=== PATIENT | male | born 1950 | race Caucasian/White ===

== ENCOUNTER → 2017-12-28 09:50 | Outpatient (CLI) | payer BC, SELFPAY ==
[2017-12-28 10:23] LABS: Kit/Specimen SENT
== END ==
PROVIDERS: PCP Emergency Medicine; Visit Provider Internal Medicine Nephrology
DX: Z01.818 Encounter for other preprocedural examination (principal); N18.4 Chronic kidney disease, stage 4 (severe)

== ENCOUNTER → 2018-01-10 10:00 | Outpatient (CLI) | payer BC, SELFPAY ==
--- NOTE | 2018-01-10 10:05 | DI.REPORT_ITS ---
SYMPTOM/DIAGNOSIS: F/U FX RIGHT FOOT: Comparison is made with 18 November 2017. The bones appear osteopenic from disuse. There has been no change in the alignment of the fractures at the bases of the 2nd and 4th metatarsals.
== END ==
PROVIDERS: PCP Emergency Medicine; Visit Provider Orthopaedic Surgery
DX: S92.324D Nondisplaced fracture of second metatarsal bone, right foot, subsequent encounter for fracture with routine healing (principal)
CPT/HCPCS: 73630

== ENCOUNTER → 2018-01-11 10:41 | Outpatient (CLI) | payer BC, SELFPAY ==
[2018-01-11 12:12] LABS: Anion Gap 12.2 mmol/L (3-11); BUN 43 mg/dL (7-18); CO2 25.8 mmol/L (21.0-32.0); Calcium 9.1 mg/dL (8.5-10.1); Chloride 106 mmol/L (98-107); Estimated GFR 16.78 (mL/min/1.73m2); Glucose 161 mg/dL (70-100); Potassium 3.2 mmol/L (3.5-5.1); Sodium 144 mmol/L (136-145)
[2018-01-11 12:29] LABS: CREATININE 3.63 mg/dL (0.70-1.30)
== END ==
PROVIDERS: PCP Emergency Medicine; Visit Provider Internal Medicine Nephrology
DX: N18.4 Chronic kidney disease, stage 4 (severe) (principal)
CPT/HCPCS: 36415; 80048

== ENCOUNTER 2018-01-31 08:36 | Outpatient (CLI) | payer BC, SELFPAY ==
[2018-01-31 13:32] LABS: Kit/Specimen SENT
== END 2018-01-31 08:56 ==
PROVIDERS: PCP Emergency Medicine; Visit Provider Internal Medicine Nephrology
DX: Z01.818 Encounter for other preprocedural examination (principal); N18.4 Chronic kidney disease, stage 4 (severe); I10 Essential (primary) hypertension
CPT/HCPCS: 36415

== ENCOUNTER 2018-02-27 09:32 | Outpatient (CLI) | payer BC, SELFPAY ==
[2018-02-27 09:53] LABS: Kit/Specimen SENT
== END 2018-02-27 09:52 ==
PROVIDERS: PCP Emergency Medicine; Visit Provider Internal Medicine Nephrology
DX: N18.4 Chronic kidney disease, stage 4 (severe) (principal); Z01.818 Encounter for other preprocedural examination

== ENCOUNTER 2018-03-30 09:49 | Outpatient (CLI) | payer BC, SELFPAY ==
[2018-03-30 10:10] LABS: Kit/Specimen SENT
[2018-03-30 11:09] LABS: Anion Gap 12.3 mmol/L (3-11); BUN 61 mg/dL (7-18); CO2 26.7 mmol/L (21.0-32.0); Chloride 102 mmol/L (98-107); Estimated GFR 16.47 (mL/min/1.73m2); Glucose 109 mg/dL (70-100); Potassium 3.5 mmol/L (3.5-5.1); Sodium 141 mmol/L (136-145)
[2018-03-30 11:22] LABS: CREATININE 3.69 mg/dL (0.70-1.30)
== END 2018-03-30 10:09 ==
PROVIDERS: PCP Emergency Medicine; Visit Provider Internal Medicine Nephrology
DX: N18.4 Chronic kidney disease, stage 4 (severe) (principal)
CPT/HCPCS: 36415; 80048

== ENCOUNTER 2018-05-03 10:01 | Outpatient (CLI) | payer BC, SELFPAY ==
[2018-05-03 10:34] LABS: Kit/Specimen SENT
== END 2018-05-03 10:21 ==
PROVIDERS: PCP Emergency Medicine; Visit Provider Internal Medicine Nephrology
DX: N18.4 Chronic kidney disease, stage 4 (severe) (principal); Z01.818 Encounter for other preprocedural examination
CPT/HCPCS: 36415

== ENCOUNTER 2018-05-25 09:24 | Emergency (ER) | payer BC, SELFPAY ==
[2018-05-25 09:32] VITALS: BP 153/68; PULSE 95; RESP 16; TEMP 37.2; O2SAT 98
--- NOTE | 2018-05-25 09:48 | DI.RAD_ITS ---
SYMPTOM/DIAGNOSIS: COUGH, FEVER, MALAISE PA AND LATERAL CHEST: A region of infiltration involving the axillary segment of the right upper lobe is demonstrated. The remainder of the lung is clear. There is no pleural effusion. The cardiovascular structures are intact. SUMMARY: Findings consistent with an acute pneumonitis.
--- NOTE | 2018-05-25 09:50 | W.ED.GENAD ---
Discharge Plan Disposition Patient Disposition: HOME Condition: Improving Discharge Details Chief Complaint: GenMedical Clinical Impression: Influenza A, Pneumonia Primary Care Provider: Adrián Rausch ED Provider: Praneeth Ruiz Home Meds and New Rx's Prescriptions: New azithromycin [Zithromax] 250 mg tablet 250 mg PO DAILY 5 Days Qty: 5 RF: 0 oseltamivir [Tamiflu] 75 mg capsule 75 mg PO BID 5 Days Qty: 9 RF: 0 Continued cyclobenzaprine 5 mg tablet 5 - 10 mg PO TID PRN (Reason: muscle spasm) Qty: 42 RF: 0 Lactobacillus acidophilus 1 EACH capsule 1 ea PO DAILY RF: 0 amlodipine 5 MG tablet 5 mg PO DAILY Qty: 30 RF: 2 losartan 50 MG tablet 75 mg PO DAILY Qty: 135 RF: 3 simvastatin 20 MG tablet 30 mg PO DAILY 90 Days Qty: 135 RF: 3 hydrochlorothiazide 12.5 MG tablet 12.5 mg PO DAILY RF: 0 calcitriol 0.25 mcg capsule 0.25 mcg PO 3xweek Qty: 60 RF: 3 No Action allopurinol 100 mg tablet 200 mg PO BID Qty: 360 RF: 4 Discharge Instructions Instructions: Pneumonia (ED), Influenza (ED) Additional Instructions: Small, frequent sips of fluids to maintain hydration. As we discussed you may liberalize potassium in your diet. Please take antibiotics and Tamiflu as prescribed. Please follow-up with primary care for recheck in the next 5-7 days time. Return to the emergency department for any acute concerns Medical Decision Making 67-year-old male presents from referral at outpatient clinic where he was evaluated for 4 days of fever, malaise. His review of systems notable for persistent cough, the notation of rust colored ejaculate and a history of prostatitis. 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 Arrives with a temperature of 37, pulse 95, blood pressure 153/68. Differential diagnosis includes prostatitis, urinary tract infection, influenza or pneumonia. IV placed, labs including blood culture and urinalysis obtained. Patient referred for chest x-ray. He is given a fluid bolus in the emergency dept. Influenza A positive; chest x-ray with mid lung field infiltrate. Remainder of diagnostics notable for stable creatinine, potassium 2.9 which was supplemented in the emergency department. With patient's underlying chronic disease, do feel that he should be treated for both bacterial as well as viral pneumonitis. Will be treated with Tamiflu and azithromycin given his renal dysfunction and penicillin allergies Lab Data Lab results reviewed: Yes I reviewed the patient's lab results. Laboratory Results - last 24 hr 05/25/18 05/25/18 05/25/18 10:03 10:03 10:03 WBC 17.96 H RBC 3.97 L Hgb 12.8 L Hct 37.9 L MCV 95.5 H MCH 32.2 MCHC 33.8 RDW 13.6 Plt Count 150 MPV 9.8 Immature Gran % 0.3 Neutrophils % 82.1 Lymphocytes % 7.2 Monocytes % 10.2 Eosinophils % 0.0 Basophils % 0.2 Absolute Neutrophils 14.75 H Absolute Lymphocytes 1.29 Absolute Monocytes 1.83 H Absolute Eosinophils 0.00 Absolute Basophils 0.04 Differential Comment Manual differential RBC Morphology Normal Sodium 137 Potassium 2.9 L* Chloride 96 L Carbon Dioxide 27.8 Anion Gap 13.2 H BUN 49 H Creatinine 3.59 H* Estimated GFR/1.73 m2 17.00 Glucose 153 H Lactate 1.3 Calcium 9.9 Total Bilirubin 0.6 AST 30 ALT 35 Alkaline Phosphatase 66 Total Protein 7.6 Albumin 3.9 HPI General Mode of arrival: ambulatory. Date/Time Provider Initiated Documentation: 05/25/18 09:32. Limitations to Documentation: no limitations. History of Present Illness 67 year old M presents to the emergency department with the chief complaint of Fever, described as moderate, Quality is described as aching, and is localized to the chest. Patient reports no radiation. Patient started experiencing this day(s) and it has been constant. No relieving factors improve symptom(s), No exacerbating factors reported . Patient notes cough, fever/chills and other (Seen). HPI Narrative: Fever, cough, malaise, rust colored ejaculate. This is a 67-year-old male with a history of chronic kidney disease secondary to Goodpasture's syndrome. He presented to outpatient clinic today complaining of 4 days of malaise, fevers, somewhat worsening chronic cough as well as rust colored ejaculate and a history of prostatitis. He denies dysuria. No recent travel. His was sick with an upper respiratory Related Data Home Medications Medication Instructions Recorded Confirmed Lactobacillus acidophilus 1 ea PO DAILY 03/09/16 05/25/18 amlodipine 5 mg PO DAILY #30 tab-cap 02/28/17 05/25/18 losartan 75 mg PO DAILY #135 tab-cap 04/08/17 05/25/18 simvastatin 30 mg PO DAILY 90 Days #135 tab-cap 06/13/17 05/25/18 hydrochlorothiazide 12.5 mg PO DAILY 01/24/18 05/25/18 calcitriol 0.25 mcg capsule 0.25 mcg PO 3xweek #60 cap 02/10/18 05/25/18 cyclobenzaprine 5 mg tablet 5 - 10 mg PO TID PRN #42 tab 04/07/18 05/25/18 allopurinol 100 mg tablet 200 mg PO BID #360 tab-cap 05/19/18 05/25/18 azithromycin [Zithromax] 250 mg PO DAILY 5 Days #5 tab 05/25/18 oseltamivir [Tamiflu] 75 mg PO BID 5 Days #9 cap 05/25/18 Previous Rx's Medication Instructions Recorded amlodipine 5 mg PO DAILY #30 tab-cap 02/28/17 losartan 75 mg PO DAILY #135 tab-cap 04/08/17 simvastatin 30 mg PO DAILY 90 Days #135 tab-cap 06/13/17 calcitriol 0.25 mcg capsule 0.25 mcg PO 3xweek #60 cap 02/10/18 cyclobenzaprine 5 mg tablet 5 - 10 mg PO TID PRN #42 tab 04/07/18 allopurinol 100 mg tablet 200 mg PO BID #360 tab-cap 05/19/18 azithromycin [Zithromax] 250 mg PO DAILY 5 Days #5 tab 05/25/18 oseltamivir [Tamiflu] 75 mg PO BID 5 Days #9 cap 05/25/18 Allergies Allergy/AdvReac Type Severity Reaction Status Date / Time Penicillins Allergy Severe CARDIAC Unverified 05/25/18 10:23 ARREST lisinopril AdvReac Intermediate cough Unverified 05/25/18 10:23 General Stated Complaint: GenMedical JENNIFER: 3 Review of Systems Review of Systems 8 systems reviewed and otherwise negative [facility] Medical History Borderline hyperglycemia Colon polyp, hyperplastic Hyperlipidemia Hypertension Surgical History KNEE SURGERY (~10/1971) Family History Mother Stroke Father No problems noted. Sister No problems noted. Brother Essential hypertension Heart disease Hyperlipidemia Grandfather Stroke Grandfather Personal history of malignant neoplasm Social History Smoking/Tobacco Use Status: Former Tobacco Use Exam Narrative Exam Narrative: GEN: awake, alert, oriented 3. Pleasant, well groomed, interactive. HEAD: Normocephalic, atraumatic ENT: Mucous membranes dry, oropharynx unremarkable, External ear exam unremarkable EYES: PERRL, EOMI NECK: Full ROM, no WARREN, no menigismus CHEST/RESP: Nontender, clear to auscultation bilateral, no wheeze/rhonchi/rales CARDIOVASCULAR: RRR, no murmur, rub domi. 2+ Rad pulse bilateral ABDOMEN: Soft, nontender, no mass. +Bowel sounds. Normal rectal tone, slightly boggy prostate EXT: Full ROM, no edema, no rash Neuro: Grossly normal neurologic exam, conversant, interactive. Psych: Speech fluent, thoughts congruent, affect normal Course Vital Signs Temperature 37.2 C 05/25/18 09:32 Pulse 95 H 05/25/18 09:32 Respiratory Rate 16 05/25/18 09:32 Blood Pressure 153/68 H 05/25/18 09:32 Pulse Oximetry 98 05/25/18 09:32 Temperature 37.2 C 05/25/18 09:32 Temperature Source Temporal Artery Scan 05/25/18 09:32 Pulse 95 H 05/25/18 09:32 Respiratory Rate 16 05/25/18 09:32 Respiratory Effort Non-Labored 05/25/18 09:35 Blood Pressure 153/68 H 05/25/18 09:32 Blood Pressure Position Sitting 05/25/18 09:32 Pulse Oximetry 98 05/25/18 09:32 Oxygen Delivery Method Room Air 05/25/18 09:32 Oxygen Flow Rate 0 05/25/18 09:32 Pain Level 0 05/25/18 09:32 Lab/Test Results Lab/Test Results: 05/25/18 09:37 Nasopharynx Influenza Types A,B Antigen - Pending
[2018-05-25] MEDS: Normal Saline 1,000 ML 1000 ML IV (10:13)
[2018-05-25 10:19] VITALS: RESP 16
[2018-05-25 10:20] LABS: Abs Immature Grans 0.05 k/cumm (0.0-0.09); Absolute Monocyte Count 1.83 k/cumm (0.11-0.7); Absolute Neutrophil Count 14.75 k/cumm (1.2-6.7); Basophils % 0.2; HCT 37.9 % (40.0-50.0); HGB 12.8 g/dL (13.5-17.5); Immature Grans % 0.3; Lymphocytes % 7.2; Mean Corp. HGB Concentration 33.8 g/dL (32.0-36.0); Mean Corpuscular Hemoglobin 32.2 pg (27.0-33.0); Mean Corpuscular Volume 95.5 fL (80-95); Mean Platelet Volume 9.8 fL (8.0-11.0); Monocytes % 10.2; Neutrophils % 82.1; Platelet Count 150 x1000/uL (130-400); RBC 3.97 m/cumm (4.50-6.00); RBC Distribution Width 13.6 % (11.8-14.1); White Blood Cell Count 17.96 k/cumm (4.4-10.8)
[2018-05-25 10:22] LABS: Absolute Basophil Count 0.04 k/cumm (0.0-0.2); Absolute Lymphocyte Count 1.29 k/cumm (1.2-3.4)
[2018-05-25 10:27] LABS: Lactate 1.3 mmol/L (0.6-1.4)
[2018-05-25 10:41] LABS: ALT 35 U/L (12-78); AST 30 U/L (15-37); Albumin 3.9 g/dL (3.4-5.0); Alkaline Phosphatase 66 U/L (46-116); Anion Gap 13.2 mmol/L (3-11); BUN 49 mg/dL (7-18); Bilirubin, Total 0.6 mg/dL (0.2-1.0); CO2 27.8 mmol/L (21.0-32.0); Calcium 9.9 mg/dL (8.5-10.1); Chloride 96 mmol/L (98-107); Glucose 153 mg/dL (70-100); Sodium 137 mmol/L (136-145); Total Protein 7.6 g/dL (6.4-8.2)
[2018-05-25 10:45] LABS: Diff Comment Manual Differential; RBC Morphology Normal
[2018-05-25 10:48] LABS: CREATININE 3.59 mg/dL (0.70-1.30)
[2018-05-25 10:49] LABS: Potassium 2.9 mmol/L (3.5-5.1)
[2018-05-25] MEDS: Potassium Chloride 20 MEQ TABCR PO (11:02)
[2018-05-25] MEDS: Oseltamivir 75 MG CAP PO (11:02)
[2018-05-25] MEDS: POTASSIUM CHLORIDE 10 MEQ/100 ML BAG 100 MEQ IVPB (11:03)
[2018-05-25 11:53] LABS: Bilirubin Negative (Negative); Blood Moderate (Negative); Clarity Clear; Glucose Negative (Negative); Ketones Negative (Negative); Leukocyte Esterase Negative (Negative); Nitrite Negative (Negative); Urobilinogen 0.2 EU/dL (Up TO 0.2); pH 6.5 (5-8)
[2018-05-25 12:11] LABS: Bacteria Rare HPF (Negative); Crystals Few Amorphous HPF (Negative); Epithelial Cells Rare HPF (Negative); Mucus Negative (Negative); Other Cells Few Renal (Negative); WBC 0-2 HPF (0-5)
[2018-05-25 12:12] LABS: C & S Indicated? No
[2018-05-25] MEDS: AZITHROMYCIN 500 MG in Normal Saline 250 ML 250 MG IVPB (12:17)
[2018-05-25 14:00] VITALS: BP 118/60; PULSE 88; RESP 14; TEMP 37.2; O2SAT 96
== END 2018-05-25 14:01 | disposition home or self-care (01) ==
PROVIDERS: Emergency Provider Emergency Medicine; PCP Emergency Medicine
DX: J11.00 Influenza due to unidentified influenza virus with unspecified type of pneumonia (principal); E87.6 Hypokalemia; M31.0 Hypersensitivity angiitis; Z87.891 Personal history of nicotine dependence; I12.0 Hypertensive chronic kidney disease with stage 5 chronic kidney disease or end stage renal disease; N18.6 End stage renal disease; Z99.2 Dependence on renal dialysis
CPT/HCPCS: 36415; 80053; 87040; 87449; 96361; 96365; 96367; 99285; 71046; 81003; 81015; 83605; 85025; J0456; J3480

== ENCOUNTER 2018-05-31 10:21 | Outpatient (CLI) | payer BC, SELFPAY ==
[2018-05-31 10:48] LABS: Kit/Specimen SENT
[2018-05-31 14:44] LABS: Anion Gap 11.3 mmol/L (3-11); BUN 46 mg/dL (7-18); CO2 26.7 mmol/L (21.0-32.0); CREATININE 3.27 mg/dL (0.70-1.30); Calcium 9.2 mg/dL (8.5-10.1); Chloride 104 mmol/L (98-107); Estimated GFR 18.93 (mL/min/1.73m2); Glucose 153 mg/dL (70-100); Sodium 142 mmol/L (136-145)
== END 2018-05-31 10:41 ==
PROVIDERS: PCP Emergency Medicine; Visit Provider Internal Medicine Nephrology
DX: N18.4 Chronic kidney disease, stage 4 (severe) (principal)
CPT/HCPCS: 36415; 80048

== ENCOUNTER 2018-06-07 10:08 | Outpatient (CLI) | payer BC, SELFPAY ==
[2018-06-07 11:35] LABS: Bilirubin Negative (Negative); Blood Small (Negative); Clarity Clear; Glucose Negative (Negative); Ketones Negative (Negative); Leukocyte Esterase Negative (Negative); Nitrite Negative (Negative); Urobilinogen 0.2 EU/dL (Up TO 0.2)
[2018-06-07 11:47] LABS: Bacteria Rare HPF (Negative); Epithelial Cells Rare HPF (Negative)
[2018-06-07 11:48] LABS: C & S Indicated? No; Casts 3-5 Hyaline LPF (Negative); Crystals Negative HPF (Negative); Mucus Trace (Negative)
[2018-06-08 12:14] LABS: PSA, Screening 1.2 ng/ml (0-4.5)
== END 2018-06-07 10:28 ==
PROVIDERS: PCP Emergency Medicine; Visit Provider Family Medicine
DX: R36.1 Hematospermia (principal); R39.11 Hesitancy of micturition; N13.8 Other obstructive and reflux uropathy; N40.1 Benign prostatic hyperplasia with lower urinary tract symptoms
CPT/HCPCS: 36415; 84153; 81003; 81015

== ENCOUNTER 2018-06-13 17:11 | Outpatient (REF) | payer BC, SELFPAY ==
--- NOTE | 2018-06-13 14:45 | PAPNONF_PTH ---
PATIENT: Gamaliel Gudino LOC: [facility] U#:[id number] AGE/SX: 67/M ROOM: RE06/13/[address]: Lucila Lopez DNP : 1950 BED: DIS: 06/13/2018 SPEC #: [id number] RECD: 06/13/18 17:46 STATUS: SANTINO REShivam #: [id number] TAY: 06/13/18 14:[address]: Lucila Lopez DEPT: [facility] Cytology RECD BY: Candy Esposito ENTERED: 06/13/18 17:48 SP TYPE: [facility] DR: Edward Jackson MD Tissues: 1 - BODY FLUID CYTO(SPUTUM/URINE)[facility] Procedures: BODY FLUID CYTO(URINE/SPUTUM) Comments: [id number] (TOTAL VOLUME = 80 ml's) (40 ml's URINE & 40 ml's CYTOLYT ADDED IN 2 CONTAINERS)
== END 2018-06-13 17:31 ==
LOC: LBN 17:11
PROVIDERS: PCP Family Medicine; Visit Provider Nurse Practitioner Gerontology
DX: R31.9 Hematuria, unspecified (principal); R82.8 Abnormal findings on cytological and histological examination of urine
CPT/HCPCS: 88104

== ENCOUNTER 2018-06-30 09:35 | Outpatient (CLI) | payer BC, SELFPAY ==
[2018-06-30 10:00] LABS: Kit/Specimen SENT
== END 2018-06-30 09:55 ==
PROVIDERS: PCP Family Medicine; Visit Provider Internal Medicine Nephrology
DX: I77.6 Arteritis, unspecified (principal); R76.8 Other specified abnormal immunological findings in serum
CPT/HCPCS: 36415

== ENCOUNTER 2018-07-14 02:03 | Outpatient (RCR) | payer BC, SELFPAY ==
[2018-07-14] VITALS (7 sets, daily range): BP systolic 143–173; BP diastolic 70–91; PULSE 59–70; RESP 16–18; TEMP 35.9–36.4; O2SAT 94–99
[2018-07-14] MEDS: Acetaminophen 325 MG TAB 650 MG PO (10:24)
[2018-07-14] MEDS: diphenhydrAMINE 50 MG/ML VIAL 25 MG IV (10:24)
[2018-07-14] MEDS: methylPREDNISolone SUCC 125 MG VIAL IV (10:25)
[2018-07-14] MEDS: Normal Saline Flush 10 ML SYR IVP (10:56)
== END 2018-07-27 23:59 | disposition home or self-care (01) ==
LOC: INF 02:03
PROVIDERS: PCP Family Medicine; Visit Provider Internal Medicine
DX: I77.6 Arteritis, unspecified (principal); R76.8 Other specified abnormal immunological findings in serum
CPT/HCPCS: 96365; 96366; J1200; J2930; J9310

== ENCOUNTER 2018-07-28 00:43 | Outpatient (RCR) | payer BC, SELFPAY ==
[2018-07-28] MEDS: Acetaminophen 325 MG TAB 650 MG PO (09:13)
[2018-07-28] MEDS: methylPREDNISolone SUCC 125 MG VIAL IV (09:13)
[2018-07-28] MEDS: diphenhydrAMINE 50 MG/ML VIAL 25 MG IV (09:13)
[2018-07-28 09:14] VITALS: BP 152/71; PULSE 71; RESP 18; TEMP 36; O2SAT 96
[2018-07-28 09:50] VITALS: BP 149/79; PULSE 68; RESP 18; TEMP 36.5; O2SAT 95
[2018-07-28 10:05] VITALS: BP 136/68; PULSE 75; RESP 18; TEMP 36.3; O2SAT 94
[2018-07-28 10:40] VITALS: BP 139/70; PULSE 67; RESP 17; TEMP 36; O2SAT 95
[2018-07-28] MEDS: Normal Saline Flush 10 ML SYR IVP (13:13)
== END 2018-08-27 23:59 | disposition home or self-care (01) ==
LOC: INF 00:43
PROVIDERS: PCP Family Medicine; Visit Provider Internal Medicine
DX: I77.6 Arteritis, unspecified (principal); R76.8 Other specified abnormal immunological findings in serum
CPT/HCPCS: 96365; 96366; J1200; J2930; J9310

== ENCOUNTER 2018-07-31 10:32 | Outpatient (CLI) | payer BC, SELFPAY ==
[2018-07-31 10:47] LABS: Kit/Specimen SENT
== END 2018-07-31 10:52 ==
PROVIDERS: PCP Family Medicine; Visit Provider Internal Medicine Nephrology
DX: R69 Illness, unspecified (principal)
CPT/HCPCS: 36415

== ENCOUNTER 2018-08-24 14:43 | Outpatient (CLI) | payer BC, SELFPAY | END 2018-08-24 15:03 | PROVIDERS: PCP Family Medicine; Visit Provider Internal Medicine Nephrology | DX: R69 Illness, unspecified (principal) | CPT/HCPCS: 36415 ==

== ENCOUNTER 2018-08-30 10:09 | Outpatient (CLI) | payer BC, SELFPAY ==
[2018-08-30 10:44] LABS: Kit/Specimen SENT
== END 2018-08-30 10:29 ==
PROVIDERS: PCP Family Medicine; Visit Provider Internal Medicine Nephrology
DX: N18.6 End stage renal disease (principal); Z01.818 Encounter for other preprocedural examination
CPT/HCPCS: 36415

== ENCOUNTER 2018-09-28 09:39 | Outpatient (CLI) | payer BC, SELFPAY ==
[2018-09-28 10:02] LABS: Kit/Specimen SENT
== END 2018-09-28 09:59 ==
PROVIDERS: PCP Family Medicine; Visit Provider Internal Medicine Nephrology
DX: N18.6 End stage renal disease (principal); Z01.818 Encounter for other preprocedural examination
CPT/HCPCS: 36415

== ENCOUNTER 2018-10-30 09:47 | Outpatient (CLI) | payer BC, SELFPAY ==
[2018-10-30 10:04] LABS: Kit/Specimen SENT
== END 2018-10-30 10:07 ==
PROVIDERS: PCP Family Medicine; Visit Provider Internal Medicine Nephrology
DX: N18.6 End stage renal disease (principal); Z01.818 Encounter for other preprocedural examination
CPT/HCPCS: 36415

== ENCOUNTER 2018-11-20 07:30 | Outpatient (CLI) | payer BC, SELFPAY | END 2018-11-20 07:50 | PROVIDERS: PCP Family Medicine; Visit Provider Internal Medicine Nephrology | DX: R69 Illness, unspecified (principal) | CPT/HCPCS: 36415 ==

== ENCOUNTER 2018-12-28 08:44 | Outpatient (CLI) | payer BC, SELFPAY ==
[2018-12-28 09:16] LABS: Kit/Specimen SENT
== END 2018-12-28 09:04 ==
PROVIDERS: PCP Family Medicine; Visit Provider Internal Medicine Nephrology
DX: N18.6 End stage renal disease (principal); Z01.818 Encounter for other preprocedural examination
CPT/HCPCS: 36415

== ENCOUNTER 2019-01-30 11:34 | Outpatient (CLI) | payer BC, SELFPAY ==
[2019-01-30 12:00] LABS: Kit/Specimen SENT
[2019-01-30 12:41] LABS: Anion Gap 12.5 mmol/L (3-11); BUN 63 mg/dL (7-18); CO2 23.5 mmol/L (21.0-32.0); Calcium 9.7 mg/dL (8.5-10.1); Chloride 106 mmol/L (98-107); Estimated GFR 16.27 (mL/min/1.73m2); Glucose 100 mg/dL (70-100); Potassium 3.5 mmol/L (3.5-5.1); Sodium 142 mmol/L (136-145)
[2019-01-30 12:46] LABS: CREATININE 3.72 mg/dL (0.70-1.30)
== END 2019-01-30 11:54 ==
PROVIDERS: PCP Family Medicine; Visit Provider Internal Medicine Nephrology
DX: N18.4 Chronic kidney disease, stage 4 (severe) (principal); Z01.818 Encounter for other preprocedural examination
CPT/HCPCS: 36415; 80048

== ENCOUNTER 2019-03-01 09:30 | Outpatient (CLI) | payer BC, SELFPAY ==
[2019-03-01 09:56] LABS: Kit/Specimen SENT
== END 2019-03-01 09:50 ==
PROVIDERS: PCP Family Medicine; Visit Provider Internal Medicine Nephrology
DX: N18.6 End stage renal disease (principal); Z01.818 Encounter for other preprocedural examination

== ENCOUNTER 2019-04-02 09:44 | Outpatient (CLI) | payer BC, SELFPAY ==
[2019-04-02 10:10] LABS: Kit/Specimen SENT
== END 2019-04-02 10:04 ==
PROVIDERS: PCP Family Medicine; Visit Provider Internal Medicine Nephrology
DX: N18.6 End stage renal disease (principal); Z01.818 Encounter for other preprocedural examination
CPT/HCPCS: 36415

== ENCOUNTER 2019-05-03 11:02 | Outpatient (CLI) | payer BC, SELFPAY ==
[2019-05-03 13:40] LABS: Kit/Specimen SENT
== END 2019-05-03 11:22 ==
PROVIDERS: PCP Family Medicine; Visit Provider Internal Medicine Nephrology
DX: N18.4 Chronic kidney disease, stage 4 (severe) (principal); N18.6 End stage renal disease
CPT/HCPCS: 36415

== ENCOUNTER 2019-06-01 11:30 | Outpatient (CLI) | payer BC, SELFPAY ==
[2019-06-01 12:01] LABS: Kit/Specimen SENT
[2019-06-01 12:56] LABS: Anion Gap 13.6 mmol/L (3-11); BUN 54 mg/dL (7-18); CO2 25.4 mmol/L (21.0-32.0); Calcium 10.5 mg/dL (8.5-10.1); Chloride 103 mmol/L (98-107); Estimated GFR 15.92 (mL/min/1.73m2); Glucose 180 mg/dL (74-106); Potassium 3.2 mmol/L (3.5-5.1); Sodium 142 mmol/L (136-145)
[2019-06-01 13:04] LABS: CREATININE 3.79 mg/dL (0.70-1.30)
== END 2019-06-01 11:50 ==
PROVIDERS: PCP Family Medicine; Visit Provider Internal Medicine Nephrology
DX: N18.4 Chronic kidney disease, stage 4 (severe) (principal); Z01.818 Encounter for other preprocedural examination; Z76.82 Awaiting organ transplant status
CPT/HCPCS: 36415; 80048

== ENCOUNTER 2019-07-30 11:29 | Outpatient (CLI) | payer BC, MEDICARE, SELFPAY ==
[2019-07-30 11:50] LABS: Kit/Specimen SENT
[2019-07-30 12:45] LABS: BUN 47 mg/dL (7-18); Calcium 9.7 mg/dL (8.5-10.1); Chloride 106 mmol/L (98-107); Estimated GFR 15.83 (mL/min/1.73m2); Glucose 164 mg/dL (74-106); Potassium 3.4 mmol/L (3.5-5.1); Sodium 144 mmol/L (136-145)
== END 2019-07-30 11:49 ==
PROVIDERS: Internal Medicine Nephrology; PCP Family Medicine; Visit Provider Internal Medicine Nephrology
DX: N18.4 Chronic kidney disease, stage 4 (severe) (principal)
CPT/HCPCS: 36415; 80048

== ENCOUNTER 2019-12-25 02:01 | Outpatient (RCR) | payer BC, MEDICARE, SELFPAY ==
[2019-12-25] VITALS (9 sets, daily range): BP systolic 149–173; BP diastolic 63–77; PULSE 69–98; RESP 18–19; TEMP 36–36.6; O2SAT 93–99
[2019-12-25] MEDS: Acetaminophen 325 MG TAB 650 MG PO (08:19)
[2019-12-25] MEDS: diphenhydrAMINE 50 MG/ML VIAL 25 MG IV (08:19)
[2019-12-25] MEDS: methylPREDNISolone SUCC 125 MG VIAL IV (08:26)
[2019-12-25] MEDS: Normal Saline Flush 10 ML SYR IVP (08:34)
== END 2019-12-28 23:59 | disposition home or self-care (01) ==
LOC: INF 02:01
PROVIDERS: PCP Family Medicine; Visit Provider Internal Medicine
DX: I77.6 Arteritis, unspecified (principal); R76.8 Other specified abnormal immunological findings in serum
CPT/HCPCS: 96365; 96366; 96413; 96415; J1200; J2930; J9312

== ENCOUNTER 2020-01-01 01:28 | Outpatient (CLI) | payer BC, MEDICARE, SELFPAY ==
[2020-01-01 09:37] LABS: Kit/Specimen SENT
== END 2020-01-01 01:48 ==
PROVIDERS: PCP Family Medicine; Visit Provider Internal Medicine Nephrology
DX: Z94.0 Kidney transplant status (principal)
CPT/HCPCS: 36415

== ENCOUNTER 2020-01-08 01:43 | Outpatient (RCR) | payer BC, MEDICARE, SELFPAY ==
[2020-01-08] MEDS: Acetaminophen 325 MG TAB 650 MG PO (08:42)
[2020-01-08] MEDS: diphenhydrAMINE 50 MG/ML VIAL 25 MG IV (08:42)
[2020-01-08] MEDS: methylPREDNISolone SUCC 125 MG VIAL IV (08:42)
[2020-01-08 08:51] VITALS: BP 164/79; PULSE 75; RESP 18; TEMP 36.6; O2SAT 98
[2020-01-08 09:12] VITALS: BP 156/79; PULSE 70; RESP 18; TEMP 36.6; O2SAT 98
[2020-01-08 09:42] VITALS: BP 156/75; PULSE 66; RESP 18; TEMP 36.5; O2SAT 97
[2020-01-08 10:12] VITALS: BP 155/75; PULSE 68; RESP 18; TEMP 36.5; O2SAT 97
[2020-01-08] MEDS: Normal Saline Flush 10 ML SYR IVP (11:08)
== END 2020-01-28 23:59 | disposition home or self-care (01) ==
LOC: INF 01:43
PROVIDERS: PCP Family Medicine; Visit Provider Internal Medicine
DX: I77.6 Arteritis, unspecified (principal); R76.8 Other specified abnormal immunological findings in serum
CPT/HCPCS: 96365; 96366; 96374; 96413; 96415; J1200; J2930; J9312

== ENCOUNTER 2020-02-01 01:22 | Outpatient (CLI) | payer BC, MEDICARE, SELFPAY ==
[2020-02-01 10:08] LABS: Kit/Specimen SENT
== END 2020-02-01 01:42 ==
PROVIDERS: PCP Family Medicine; Visit Provider Internal Medicine Nephrology
DX: N18.4 Chronic kidney disease, stage 4 (severe) (principal); Z01.818 Encounter for other preprocedural examination; Z76.82 Awaiting organ transplant status
CPT/HCPCS: 36415

== ENCOUNTER 2020-02-29 08:53 | Day surgery (SDC) | payer BC, MEDICARE, SELFPAY ==
[2020-02-29 09:14] VITALS: BP 154/83; PULSE 75; RESP 17; TEMP 36.4; O2SAT 95
[2020-02-29] MEDS: Lactated Ringers 1,000 ML 80 ML IV (09:44)
--- NOTE | 2020-02-29 10:24 | W.PM.DSUDISC ---
Discharge Plan Disposition Patient Disposition: HOME Condition: Good Discharge Details Reason For Visit: Colonoscopy Attending Provider: Dilcia Doty Primary Care Provider: Edward Jackson Home Meds and New Rx's Prescriptions: Continued calcitriol 0.25 mcg capsule 0.25 mcg PO 5XW RF: 0 allopurinol 100 mg tablet 200 mg PO BID RF: 0 losartan 50 mg tablet 75 mg PO DAILY RF: 0 terazosin 1 mg capsule 3 mg PO QHS RF: 0 simvastatin 20 mg tablet 60 mg PO DAILY RF: 0 Lactobacillus acidophilus 1 EACH capsule 1 ea PO DAILY RF: 0 Discontinued polyethylene glycol 3350 17 gram/dose powder 238 g PO ONCE Qty: 238 RF: 0 bisacodyl [Dulcolax (bisacodyl)] 5 mg tablet,delayed release (DR/EC) 5 mg PO ONCE Qty: 4 RF: 0 Discharge Instructions Additional Instructions: Findings: Your colonoscopy showed diverticulosis. No polyps were found. Follow up: Plan for colonoscopy in 5 years. Please call if you develop: fevers >101.5 Nausea or Vomiting Abdominal pain that is not transient DAY SURGERY UNIT POST COLONOSCOPY INSTRUCTIONS 1. Because there will be medication in your system for the next 24 hours, you may feel a little sleepy. Your coordination will be affected. Therefore: a. Do not drive or operate dangerous equipment for 24 hours. b. Do not drink alcohol beverages for 24 hours (not even beer). c. Plan to go home and rest for the day. 2. Generally there are no restrictions on your activity after a day or so has gone by, but you may feel a bit fatigued for a few days. 3 After you arrive home you may have a light meal and return to a normal diet as you can tolerate it without feeling sick to your stomach. 4. After surgery, you may feel pain or discomfort. This should be only transient, but if it persists please contact your doctor. 5. If there are any questions regarding the findings of your procedure, please feel free to contact your doctor. 6. If you are unable to contact your doctor with a problem, contact the hospital at [phone]. 7. Continue all your regular medications unless directed otherwise. I understand the above instructions and have no questions. Signature of Patient or Responsible Adult Escort Date/Time Name of Responsible Adult Escort Signature of Nurse Date/Time Activity:: Activity as Tolerated Diet:: As Tolerated Discharge Orders Discharge Orders: Discharge Order (Routine); Ordered 02/29/20 Ordered By: Dilcia Doty DS: Diagnosis Discharge Diagnosis (1) Diverticulosis: Status: Acute
--- NOTE | 2020-02-29 10:25 | W.COLOREPORT ---
Date of service: 02/29/20 Time of Service: 11:13 Colonoscopy Report Date of procedure: 02/29/20 Pre-op diagnosis general: History of tubulovillous adenoma Post-op diagnosis procedure note: other (Diverticulosis) Procedure: Colonoscopy Surgeon: Dilcia Doty Anesthesia proc note operative: MAC Indications: This 69 year old man presents for surveillance colonoscopy. His prior in 2016 showed a tubulovillous adenoma in the ascending colon. Procedure Description: The patient was placed in the left [place] position. Propofol was titrated to sedation. Digital rectal examination revealed no abnormalities. The scope was advanced to the cecum without difficulty. The ileocecal valve and appendiceal orifice were clearly identified. The prep was good. The scope was slowly withdrawn over the course of greater than 6 minutes with no abnormalities seen in the ascending, transverse, descending, sigmoid colon with the exception of moderate diverticulosis. The rectum was normal including on retroflexed view. The patient tolerated the procedure well and was stable to recovery. Plan for routine screening colonoscopy in 5 years or sooner if symptoms indicate.
[2020-02-29 11:35] VITALS: BP 139/74; PULSE 51; RESP 18; TEMP 36.3; O2SAT 96
== END 2020-02-29 12:07 | disposition home or self-care (01) ==
PROVIDERS: PCP Family Medicine; Visit Provider Surgery
PROC: 0DJD8ZZ Inspection of Lower Intestinal Tract, Via Natural or Artificial Opening Endoscopic (ICD-10-PCS; CPT 45378; principal; 2020-02-29 10:30)
DX: Z12.11 Encounter for screening for malignant neoplasm of colon (principal); Z86.010 Personal history of colon polyps; K57.30 Diverticulosis of large intestine without perforation or abscess without bleeding; I10 Essential (primary) hypertension
CPT/HCPCS: 45378

== ENCOUNTER 2020-03-24 02:14 | Outpatient (CLI) | payer BC, MEDICARE, SELFPAY ==
[2020-03-24 10:14] LABS: Kit/Specimen SENT
== END 2020-03-24 02:34 ==
PROVIDERS: PCP Family Medicine; Visit Provider Internal Medicine Nephrology
DX: Z01.818 Encounter for other preprocedural examination (principal)

== ENCOUNTER 2020-09-15 15:14 | Outpatient (REF) | payer BC, MEDICARE, SELFPAY ==
[2020-09-15 16:19] LABS: Abs Immature Grans 1.03 10^3/uL (0.0-0.06); HCT 43.8 % (40.0-50.0); HGB 13.5 g/dL (13.5-17.5); MCH 26.6 pg (27.0-33.0); MCHC 30.8 % (32.0-36.0); MCV 86.2 fL (80-95); MPV 11.1 fL (8.0-11.0); Nucleated RBC 0 %; Platelet Count 142 10^3/uL (130-400); RBC 5.08 10^6/uL (4.36-5.78); RDW-SD 47.7 fL; WBC 9.54 10^3/uL (4.4-10.8)
[2020-09-15 16:25] LABS: ALT 37 U/L (16-63); AST 47 U/L (15-37); Albumin 3.6 g/dL (3.4-5.0); Alkaline Phosphatase 80 U/L (46-116); Anion Gap 9.9 mmol/L (3-11); BUN 29 mg/dL (7-18); Bilirubin, Total 0.3 mg/dL (0.2-1.0); CO2 24.1 mmol/L (21.0-32.0); CREATININE 1.5 mg/dL (0.70-1.30); Calcium 10.3 mg/dL (8.5-10.1); Chloride 105 mmol/L (98-107); Estimated GFR 46.13 (mL/min/1.73m2); Glucose 165 mg/dL (74-106); Magnesium 1.5 mg/dL (1.8-2.4); PHOSPHORUS 2.2 mg/dL (2.6-4.7); Potassium 4.3 mmol/L (3.5-5.1); Sodium 139 mmol/L (136-145); Total Protein 7.2 g/dL (6.4-8.2)
[2020-09-15 16:30] LABS: Bilirubin Negative (Negative); Blood Large (Negative); Clarity Sl Cloudy (Clear); Glucose Negative (Negative); Ketones Negative (Negative); Leukocyte Esterase Negative (Negative); Nitrite Negative (Negative); Specific Gravity >= 1.030 (1.005-1.025); Urobilinogen 0.2 EU/dL (Up TO 0.2); pH 5.5 (5-8)
[2020-09-15 16:42] LABS: WBC 0-2 HPF (0-5)
[2020-09-15 16:43] LABS: Bacteria Negative HPF (Negative); C & S Indicated? No; Casts 0-2 Hyaline LPF (Negative); Crystals Negative HPF (Negative); Epithelial Cells Rare HPF (Negative); Mucus Trace (Negative); RBC >50 HPF (0-2)
[2020-09-15 16:48] LABS: Absolute Lymphocyte Count 0.38 10^3/uL (1.2-3.4); Absolute Monocyte Count 0.86 10^3/uL (0.1-0.8); Absolute Neutrophil Count 8.11 10^3/uL (1.2-6.7); Bands % 10; Metamyelocytes % 1; Myelocytes % 1
[2020-09-15 16:49] LABS: Diff Comment Manual Differential; RBC Morphology Normal
== END 2020-09-15 15:15 | disposition home or self-care (01) ==
LOC: LBN 15:14
PROVIDERS: PCP Family Medicine; Visit Provider Internal Medicine Nephrology
DX: N18.4 Chronic kidney disease, stage 4 (severe) (principal); I12.9 Hypertensive chronic kidney disease with stage 1 through stage 4 chronic kidney disease, or unspecified chronic kidney disease; Z94.0 Kidney transplant status
CPT/HCPCS: 80053; 81003; 81015; 83735; 84100; 85025

== ENCOUNTER 2020-11-03 10:32 | Outpatient (CLI) | payer BC, MEDICARE, SELFPAY ==
--- NOTE | 2020-11-03 11:13 | DI.RAD_ITS ---
Exam(s) XR CHEST 2V PA LATERAL EXAM: XR CHEST 2V PA LATERAL CLINICAL HISTORY: H/O KIDNEY TRANSPLANT, Z94.0, IMMUNOSUPPRESSED STATUS, D84.9, CHRONIC COUGH TECHNIQUE: 2D digital imaging was performed. COMPARISON: CT HEAD WITHOUT CONTRAST from 01/14/2016 CT ABD PELVIS WO CONTRAST from 01/14/2016 CR XR CHEST 2V PA LATERAL from 05/25/2018 FINDINGS: MEDIASTINUM: Normal. HEART: Normal. PULMONARY VASCULATURE: Normal. LUNGS: Pulmonary fibrosis is seen in the lungs particularly in the right lung base. Hyperinflation o f the lungs and flattened diaphragms are present consistent with COPD. These findings were apparent on the CT scan of the abdomen and pelvis from 01/14/2016. The possibility of a superimposed infiltrate particularly in the right lung base cannot be excluded. PLEURAL SPACE: No pleural effusion or pneumothorax. BONE:Within normal limits for the patient's age. OTHER FINDINGS:Normal. IMPRESSION: 1. Pulmonary fibrosis and COPD. 2. The possibility of a superimposed infiltrate particularly in the right lung base cannot be exclude d. DATA REPOSITORY: RADIATION DOSE DELIVERED:
== END 2020-11-03 10:52 ==
PROVIDERS: PCP Family Medicine; Visit Provider Transplant Surgery
DX: R05 Cough (principal); D84.9 Immunodeficiency, unspecified; Z94.0 Kidney transplant status; J44.9 Chronic obstructive pulmonary disease, unspecified; J84.10 Pulmonary fibrosis, unspecified
CPT/HCPCS: 71046

== ENCOUNTER 2020-11-04 15:22 | Outpatient (CLI) | payer BC, MEDICARE, SELFPAY ==
[2020-11-06 09:46] LABS: C3 Complement 136 mg/dL (81-157); C4 Complement 35 mg/dL (13-39)
[2020-11-06 18:02] LABS: Complement, Total >75 U/mL (30-75)
[2020-11-07 10:47] LABS: Glomerular Basement Membr Ab <0.2 U; Myeloperoxidase Ab IgG 5.3 U; Proteinase 3 Ab (PR3) <0.2 U
[2020-11-07 15:58] LABS: c-ANCA Negative (Negative); p-ANCA Positive (Negative)
== END 2020-11-04 15:23 | disposition home or self-care (01) ==
PROVIDERS: PCP Family Medicine; Visit Provider Internal Medicine Nephrology
DX: D84.89 Other immunodeficiencies (principal); Z94.0 Kidney transplant status
CPT/HCPCS: 36415; 83516; 83520; 86160; 86162; 86255

== ENCOUNTER 2020-12-22 12:16 | Outpatient (REF) | payer BC, MEDICARE, SELFPAY | END 2020-12-22 12:17 | disposition home or self-care (01) | LOC: LBN 12:16 | PROVIDERS: PCP Family Medicine; Visit Provider Internal Medicine Nephrology | DX: N39.0 Urinary tract infection, site not specified (principal) | CPT/HCPCS: 87086 ==

== ENCOUNTER 2021-03-02 03:24 | Outpatient (CLI) | payer BC, MEDICARE, SELFPAY ==
[2021-03-02 12:49] LABS: HCT 46.6 % (40.0-50.0); HGB 14.2 g/dL (13.5-17.5); MCH 28.2 pg (27.0-33.0); MCHC 30.5 % (32.0-36.0); MCV 92.6 fL (80-95); MPV 10.2 fL (8.0-11.0); Platelet Count 153 10^3/uL (130-400); RBC 5.03 10^6/uL (4.36-5.78); RDW 14.4 % (11.8-14.1); RDW-SD 48.9 fL; WBC 7.21 10^3/uL (4.4-10.8)
[2021-03-02 13:01] LABS: ALT 28 U/L (16-63); AST 23 U/L (15-37); Albumin 3.7 g/dL (3.4-5.0); Alkaline Phosphatase 74 U/L (46-116); BUN 17 mg/dL (7-18); Bilirubin, Total 0.6 mg/dL (0.2-1.0); CREATININE 1.5 mg/dL (0.70-1.30); Calcium 9.5 mg/dL (8.5-10.1); Chloride 107 mmol/L (98-107); Estimated GFR 46.13 (mL/min/1.73m2); Glucose 183 mg/dL (74-106); Magnesium 1.7 mg/dL (1.8-2.4); PHOSPHORUS 2.8 mg/dL (2.6-4.7); Potassium 4.2 mmol/L (3.5-5.1); Sodium 144 mmol/L (136-145); Total Protein 6.5 g/dL (6.4-8.2); Uric Acid 6.1 mg/dL (3.5-7.2)
[2021-03-02 13:21] LABS: Cholesterol 198 mg/dL (<200)
[2021-03-02 13:47] LABS: COMMENT (LAB VIEW ONLY) 133.41 mg/dL; PROTEIN 285.2 mg/dL; Prot/Crea Ur Ratio 2.13
[2021-03-02 18:54] LABS: Bilirubin Negative (Negative); Blood Trace-lysed (Negative); Clarity Sl Cloudy (Clear); Glucose Negative (Negative); Ketones Negative (Negative); Leukocyte Esterase Trace (Negative); Nitrite Negative (Negative); Specific Gravity >= 1.030 (1.005-1.025); Urobilinogen 0.2 EU/dL (Up TO 0.2); pH 5.5 (5-8)
[2021-03-02 19:05] LABS: Bacteria Many HPF (Negative); C & S Indicated? Yes; Casts Negative LPF (Negative); Crystals Negative HPF (Negative); Epithelial Cells Few HPF (Negative); Mucus Moderate (Negative); RBC 0-2 HPF (0-2)
[2021-03-03 13:49] LABS: Tacrolimus 6.6 ng/mL (See Note)
== END 2021-03-02 03:25 | disposition home or self-care (01) ==
PROVIDERS: PCP Family Medicine; Visit Provider Internal Medicine Nephrology
DX: Z29.8 Encounter for other specified prophylactic measures (principal); Z94.0 Kidney transplant status; Z79.899 Other long term (current) drug therapy
CPT/HCPCS: 36415; 80053; 85027; 87077; 80197; 81003; 81015; 82465; 82565; 83735; 84100; 84156; 84550; 87086; 87186

== ENCOUNTER 2022-09-10 11:46 | Emergency (ER) | payer OTHER, SELFPAY ==
[2022-09-10 11:50] VITALS: BP 152/73; PULSE 64; RESP 16; TEMP 36.4; O2SAT 97
[2022-09-10 12:13] LABS: Abs Immature Grans 0.12 10^3/uL (0.0-0.06); Absolute Lymphocyte Count 1.53 10^3/uL (1.2-3.4); Basophils % 0.4; HCT 48.2 % (40.0-50.0); HGB 15.9 g/dL (13.5-17.5); Immature Grans % 0.7; Lymphocytes % 9.2; MCH 29.8 pg (27.0-33.0); MCV 90 fL (80-95); MPV 10.5 fL (8.0-11.0); Monocytes % 5.2; Neutrophils % 84.5; Platelet Count 172 10^3/uL (130-400); RBC 5.34 10^6/uL (4.36-5.78); RDW 13.5 % (11.8-14.1); RDW-SD 44.5 fL; WBC 16.67 10^3/uL (4.4-10.8)
[2022-09-10 12:18] LABS: Absolute Basophil Count 0.07 10^3/uL (0.0-0.2); Absolute Monocyte Count 0.87 10^3/uL (0.1-0.8); Absolute Neutrophil Count 14.09 10^3/uL (1.2-6.7)
--- NOTE | 2022-09-10 12:24 | W.ED.GENAD ---
Discharge Plan Disposition Patient Disposition: Home Condition: Stable Discharge Details Clinical Impression: Mouth bleeding, S/P tooth extraction Primary Care Provider: Shannan Stevens ED Provider: Nikki Kim Home Meds and New Rx's Prescriptions: Continued metoprolol succinate 100 mg tablet extended release 24 hr 50 mg PO BID methenamine hippurate 1 gram tablet 1 g PO BID diltiazem HCl 120 mg capsule,extended release 24hr 120 mg PO DAILY atorvastatin [Lipitor] 20 mg tablet 20 mg PO DAILY Patient Comments: reported by pt from [facility] [place] famotidine [Pepcid] 20 mg tablet 20 mg PO DAILY tamsulosin 0.4 mg capsule 0.4 mg PO QHS Patient Comments: reported by pt through [facility] [place] acetaminophen 500 mg tablet 500 mg PO Q8H PRN PRN Patient Comments: reported by pt through [facility] [place] calcitriol 0.25 mcg capsule 0.25 mcg PO DAILY sennosides [senna] 8.6 mg tablet 8.6 mg PO PRN Patient Comments: reported by pt through [facility] [place] Pt can take 1-2 tabs BID benzonatate 100 mg capsule 100 mg PO BID-TID PRN prednisone 10 mg tablet 5 mg PO DAILY Patient Comments: takes 1/2 tab tacrolimus 0.5 mg capsule 0.5 mg PO Q12H potassium phosphate, monobasic 500 mg tablet,soluble 1,000 mg PO BID magnesium gluconate 500 mg tablet 1,500 mg PO TID mycophenolate sodium 180 mg tablet,delayed release (DR/EC) 180 mg PO DAILY metformin 500 mg tablet 500 mg PO BID losartan 100 mg Tablet 100 mg PO DAILY Discharge Instructions Instructions: Tooth Extraction (DC) Additional Instructions: Your bleeding appears to be controlled at this time. Avoid hot foods and drinks as this may contribute to bleeding. Follow a diet of soft and cool foods to minimize chewing which may break off the blood clot in the area and cause bleeding. Follow-up with your scheduled appointment with your dentist next week. Return immediately to the emergency department if you develop any worsening or new concerning symptoms. Discharge Data Discharge Physician: Nikki Kim Medical Decision Making 72-year-old male with a history of kidney transplant on chronic immunosuppression with mycophenolate, tacrolimus and prednisone presents for evaluation after sent by PCP office for continued oozing of blood at site of 2 dental extractions since yesterday. Vitals within normal limits. Patient appears comfortable and nontoxic. Site of extractions at tooth #5 and 12. There appears to be an eschar in place and no active bleeding. A CBC here today notes a hemoglobin of 15.9. His white blood cell count is 16.7 but he appears nontoxic without fever and no signs of infection on exam. Discussed with patient that the bleeding appears to have stopped and to avoid anything that may prematurely remove the eschar in place. He is advised to avoid hot food or drinks and follow a diet of cool and soft foods over the next few days. He has a follow-up appointment with his dentist next week for suture removal. Advised to follow-up with the dentist with any concerns. Usual and customary return precautions given prior to discharge. Medical Records Medical records reviewed: Yes I reviewed the patient's medical records. Lab Data Lab results reviewed: Yes I reviewed the patient's lab results. Labs: Laboratory Tests Range/Units 09/10/22 12:06 WBC (4.4-10.8) 10^3/uL 16.67 H RBC (4.36-5.78) 10^6/uL 5.34 Hgb (13.5-17.5) g/dL 15.9 Hct (40.0-50.0) % 48.2 MCV (80-95) fL 90 MCH (27.0-33.0) pg 29.8 MCHC (32.0-36.0) % 33.0 RDW (11.8-14.1) % 13.5 Plt Count (130-400) 10^3/uL 172 MPV (8.0-11.0) fL 10.5 Immature Gran % 0.7 Neutrophils % 84.5 Lymphocytes % 9.2 Monocytes % 5.2 Eosinophils % 0.0 Basophils % 0.4 Nucleated RBC % (0.0-0.3) % 0.0 Absolute Neutrophils (1.2-6.7) 10^3/uL 14.09 H Absolute Lymphocytes (1.2-3.4) 10^3/uL 1.53 Absolute Monocytes (0.1-0.8) 10^3/uL 0.87 H Absolute Eosinophils (0.0-0.7) 10^3/uL 0.00 Absolute Basophils (0.0-0.2) 10^3/uL 0.07 HPI General Mode of arrival: ambulatory. Date/Time Provider Initiated Documentation: 09/10/22 11:47. Limitations to Documentation: no limitations. Information obtained by: patient. HPI Narrative: Patient is a 72-year-old male with a history of kidney transplant on chronic immunosuppression with mycophenolate, tacrolimus and prednisone presents from the PCP office after seen there today for continued mouth bleeding status post a dental extraction yesterday. Patient reports he had 2 teeth pulled by his dentist yesterday and has had oozing of blood since then. He was seen at the PCP office for this today and she noted continued oozing and he was referred here for further treatment. Patient denies any dizziness, chest pain or shortness of breath. He reports he continued to have some oozing of blood on the way to the ED. patient states he does not take anticoagulation. Dr. Stevens had reported that the hemoglobin in the office today was 15. Related Data Home Medications Medication Instructions Recorded Confirmed acetaminophen 500 mg tablet 500 mg PO Q8H PRN PRN 02/13/21 09/10/22 atorvastatin 20 mg tablet (Lipitor) 20 mg PO DAILY 02/13/21 09/10/22 benzonatate 100 mg capsule 100 mg PO BID-TID PRN 02/13/21 09/10/22 calcitriol 0.25 mcg capsule 0.25 mcg PO DAILY 02/13/21 09/10/22 diltiazem HCl 120 mg 120 mg PO DAILY 02/13/21 09/10/22 capsule,extended release 24 hr famotidine 20 mg tablet (Pepcid) 20 mg PO DAILY 02/13/21 09/10/22 magnesium gluconate 500 mg tablet 1,500 mg PO TID 02/13/21 09/10/22 potassium phosphate, monobasic 500 1,000 mg PO BID 02/13/21 09/10/22 mg soluble tablet prednisone 10 mg tablet 5 mg PO DAILY 02/13/21 09/10/22 sennosides 8.6 mg tablet (senna) 8.6 mg PO PRN 02/13/21 09/10/22 tacrolimus 0.5 mg capsule, 0.5 mg PO Q12H 02/13/21 09/10/22 immediate-release tamsulosin 0.4 mg capsule 0.4 mg PO QHS 02/13/21 09/10/22 methenamine hippurate 1 gram tablet 1 g PO BID 02/19/22 09/10/22 metoprolol succinate 100 mg 50 mg PO BID 02/19/22 09/10/22 tablet,extended release 24 hr mycophenolate sodium 180 mg 180 mg PO DAILY 02/19/22 09/10/22 tablet,delayed release losartan 100 mg tablet 100 mg PO DAILY 09/10/22 09/10/22 metformin 500 mg tablet 500 mg PO BID 09/10/22 09/10/22 Allergies Allergy/AdvReac Type Severity Reaction Status Date / Time Penicillins Allergy Severe CARDIAC Unverified 09/10/22 12:01 ARREST ibuprofen AdvReac Intermediate its hard Verified 09/10/22 12:01 on my kidneys lisinopril AdvReac Intermediate cough Unverified 09/10/22 12:01 General Stated Complaint: DentalOral JENNIFER: 4 Review of Systems All systems reviewed & are unremarkable except as noted in HPI and below Constitutional Constitutional: Reports as per HPI, Denies chills and Denies fever(s) Eyes Eyes: Denies blurry vision ENT Ears, Nose, Mouth, and Throat: Denies dizziness, Denies sore throat, Denies throat swelling and Reports other (mouth bleeding s/p dental extraction) Cardiovascular Cardiovascular: Denies chest pain and Denies dyspnea Respiratory Respiratory: Denies cough and Denies dyspnea Gastrointestinal Gastrointestinal: Denies abdominal pain, Denies diarrhea and Denies vomiting Genitourinary Genitourinary: Denies hematuria and Denies dysuria Musculoskeletal Musculoskeletal: Denies back pain and Denies numbness Integumentary/Breasts Skin/Breast: Denies lesions and Denies rash Neurologic Neurologic: Denies dizziness, Denies localized weakness and Denies numbness Allergic/Immunologic Allergic/Immunologic: Denies throat swelling PFSH All Active Problems (Updated 09/10/22 @ 12:45 by Nikki Kim DO) Mouth bleeding (Acute) S/P tooth extraction (Acute) Marital conflict (Acute) Recurrent urinary tract infection (Acute) S/P kidney transplant (Chronic ~04/2020) at [facility] [place], post op wound dehiscence requiring repeat surgery Abnormal glucose (Chronic 11/23/13) managed with low dose metformin Essential hypertension (Acute 05/01/13) Chronic UTI (Acute) Immunosuppressed status (Acute) Due to kidney transplant and P ANCA and MPO antibody, managed at [facility] with IVIG 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 Renal failure. Pulmonary dysfunction. anti GBM nephropathy ANCA positive History of posttraumatic stress disorder (PTSD) managed by [facility] History of tobacco use quit in 1999 Hyperlipidemia Skin lesion of face Wound dehiscence, internal operation (~04/2020) Surgical History (Updated 09/10/22 @ 12:45 by Nikki Kim DO) History of knee surgery Family History (Updated 02/16/21 @ 16:01 by Berta Elias) Mother , 83 Stroke Sister Breast cancer Brother Essential hypertension Heart disease Hyperlipidemia Maternal Grandfather Stroke Paternal Grandfather Personal history of malignant neoplasm LUNG Son Depression Daughter No problems noted. Father No problems noted. 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 Pets and animals: No Sexually active: No Do you think of yourself as: straight/heterosexual Current gender identity: male What is your relationship status?: How often do you talk on the phone with friends or family?: twice per week How often do you get together with friends or relatives?: twice per week How often do you attend lutheran or caodaism services?: decline to answer Do you belong to any clubs or organized social groups?: no Panel score (0-1 are the most socially isolated patients): 1 What type of physical activity do you participate in: other Duration: < 15 minutes/day Frequency: decline to answer Fiona/Yarsanism: None Special fiona needs: No Seatbelt use: sometimes Drive intox or ride w/intox 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 Site of dental extraction. Eschar in place. No active bleeding. 2. Site of dental extraction. Eschar in place. No active bleeding. Eyes General: appearance normal, both eyes and all related structures Neck Neck: normal visual inspection Resp Effort & Inspection: normal respiratory effort and able to speak in complete sentences Cardio Rate: regular rate Skin General skin exam: no rashes or lesions noted Neuro General: patient alert, patient awake and patient oriented x3 Motor: muscle tone normal throughout Extrem General: normal to inspection and full ROM Psych Appearance: grossly normal Affect: normal affect Course Vital Signs Vital signs: Vital Signs Temperature 97.5 F L 09/10/22 11:50 Pulse 64 09/10/22 11:50 Respiratory Rate 16 09/10/22 11:50 Blood Pressure 152/73 H 09/10/22 11:50 Pulse Oximetry 97 09/10/22 11:50 Temperature 97.5 F L 09/10/22 11:50 Pulse 64 09/10/22 11:50 Respiratory Rate 16 09/10/22 11:50 Respiratory Effort Normal 09/10/22 11:54 Blood Pressure 152/73 H 09/10/22 11:50 Blood Pressure Position Sitting 09/10/22 11:50 Pulse Oximetry 97 09/10/22 11:50 Oxygen Delivery Method Room Air 09/10/22 11:50 Oxygen Flow Rate 0 09/10/22 11:50 Pain Level 0 09/10/22 11:50 Lab/Test Results Lab/Test Results: Laboratory Tests Range/Units 09/10/22 12:06 WBC (4.4-10.8) 10^3/uL 16.67 H RBC (4.36-5.78) 10^6/uL 5.34 Hgb (13.5-17.5) g/dL 15.9 Hct (40.0-50.0) % 48.2 MCV (80-95) fL 90 MCH (27.0-33.0) pg 29.8 MCHC (32.0-36.0) % 33.0 RDW (11.8-14.1) % 13.5 Plt Count (130-400) 10^3/uL 172 MPV (8.0-11.0) fL 10.5 Immature Gran % 0.7 Neutrophils % 84.5 Lymphocytes % 9.2 Monocytes % 5.2 Eosinophils % 0.0 Basophils % 0.4 Nucleated RBC % (0.0-0.3) % 0.0 Absolute Neutrophils (1.2-6.7) 10^3/uL 14.09 H Absolute Lymphocytes (1.2-3.4) 10^3/uL 1.53 Absolute Monocytes (0.1-0.8) 10^3/uL 0.87 H Absolute Eosinophils (0.0-0.7) 10^3/uL 0.00 Absolute Basophils (0.0-0.2) 10^3/uL 0.07
[2022-09-10 12:57] VITALS: BP 152/73; PULSE 64; RESP 16; TEMP 36.4; O2SAT 97
== END 2022-09-10 13:10 | disposition home or self-care (01) ==
PROVIDERS: Emergency Provider Physician Assistant; PCP Family Medicine
DX: K91.840 Postprocedural hemorrhage of a digestive system organ or structure following a digestive system procedure (principal)
CPT/HCPCS: 36415; 99283; 85025

== ENCOUNTER 2023-03-14 02:03 | Emergency (ER) | payer BC, MEDICARE, SELFPAY ==
[2023-03-14] VITALS (71 sets, daily range): BP systolic 144–226; BP diastolic 64–183; PULSE 66–115; RESP 0–30; TEMP 36.6; O2SAT 89–95
--- NOTE | 2023-03-14 02:15 | DI.CT_ITS ---
Exam(s) CT CHEST/ABD/PEL WO EXAM: CT CHEST/ABD/PEL WO CLINICAL HISTORY: fall, kid transplant, cough, abdominal pain TECHNIQUE: Imaging Protocol: Axial computed tomography images with coronal and sagittal reformatted images were created and reviewed COMPARISON: CT ABD PELVIS WO CONTRAST from 01/14/2016 CT HEAD WITHOUT CONTRAST from 01/14/2016 CR XR CHEST 2V PA LATERAL from 11/03/2020 FINDINGS: The examination is limited due to patient motion artifact. CHEST: Tracheobronchial tree: Patent where visualized. Pulmonary parenchyma: Paraseptal emphysematous changes are present. There are no focal consolidating infiltrates. Mediastinum and Damaris: No dominant adenopathy or fluid collection. The esophagus is unremarkable. Thyroid gland: Unremarkable. Pleura: No effusion or pneumothorax. Heart: The heart is not dilated. Mild coronary artery calcification is present. No pericardial effus ion. Aorta: Thoracic aorta non-dilated. Atherosclerosis. Lymph nodes: Within normal limits. Bones:Within normal limits for the patient's age. Soft tissues: Unremarkable. ABDOMEN: Liver: Normal density. There is a cyst in the right lobe of the liver. Gallbladder and Biliary Tract: No radiodense calculus or dilation. There is layering debris in the ga llbladder likely reflecting sludge. Pancreas: There has been interval increase in size of a rounded partially calcified mass in the body of the pancreas which now measures 1.4 x 2.5 cm. Spleen: Normal. Adrenals: No masses seen. Kidneys: Normal size, contour and axis. No radiodense stones or obstructive uropathy. There is a 1.2 cm right renal cyst. There is a renal transplant in the right renal pelvis. The renal transplant is unremarkable. Abdominal Aorta: Abdominal portion non-dilated. Atherosclerosis. Bowel: There is diverticulosis of the colon but no evidence of acute diverticulitis. There is no gurinder dence of bowel obstruction or bowel wall thickening. No evidence of appendicitis. Peritoneal Cavity: No ascites, collection or mesenteric inflammatory response. No free air. Lymph Nodes: Within normal limits. Bones: Within normal limits for the patient's age. Soft Tissues: Unremarkable. PELVIS: Bladder: Symmetric distention, no gross wall thickening. Reproductive Organs: Unremarkable as visualized. Lymph Nodes: Within normal limits. Bones: Within normal limits for the patient's age. There is an old T12 compression deformity. IMPRESSION: 1. No acute pulmonary process. 2. No acute abdominal or pelvic organ injury. 3. Calcified pancreatic cyst. This is indeterminate. An MRI of the pancreas should be considered fo r further evaluation. RADIATION DOSE DELIVERED: Total DLP Total DLP DATA REPOSITORY: All CT scans at this facility are submitted to the National Radiology Data Registry (NRDR) Dose Index Registry (DIR) with the [employer] (A[employer]). RADIATION OPTIMIZATION: All CT scans at this facility use at least one of these dose optimization te chniques: automated exposure control; mA and/or kV adjustment per patient size (includes targeted exa ms where dose is matched to clinical indication); or iterative reconstruction.
--- NOTE | 2023-03-14 02:15 | DI.CT_ITS ---
Exam(s) CT HEAD WO EXAM: CT HEAD WO CLINICAL HISTORY: fall, syncope, eval for bleed. TECHNIQUE: Imaging Protocol: Axial computed tomography images with coronal and sagittal reformatted images were created and reviewed COMPARISON: CT HEAD WITHOUT CONTRAST from 01/14/2016 FINDINGS: The examination is limited due to patient motion artifact. Ventricles and Extra axial spaces: Normal in size and morphology for the patient's age. Hemorrhage: None. Cerebral parenchyma: There are areas of decreased attenuation in the white matter consistent with sma ll vessel ischemic disease. Midline shift: None. Brainstem/Cerebellum: Normal. Calvarium: Normal. Visualized Paranasal sinuses/Mastoids: There is mucous retention cyst or polyp in the left maxillary sinus. There is mild mucous thickening in the right maxillary sinus. Soft Tissues: Unremarkable. IMPRESSION: 1. Beam hardening/patient motion artifact is seen particularly involving the skull base which limits examination. 2. No definite acute intracranial process. 3. A repeat exam may be considered, as clinically indicated. RADIATION DOSE DELIVERED: Total DLP DATA REPOSITORY: All CT scans at this facility are submitted to the National Radiology Data Registry (NRDR) Dose Index Registry (DIR) with the [employer] (ACR). RADIATION OPTIMIZATION: All CT scans at this facility use at least one of these dose optimization te chniques: automated exposure control; mA and/or kV adjustment per patient size (includes targeted exa ms where dose is matched to clinical indication); or iterative reconstruction.
--- NOTE | 2023-03-14 02:15 | RT.EKG_ITS ---
APPROVED REPORT Exam: Resting ECG Reason for Exam: syncope Patient Location: E HR:113 bpm ECG Measurements Heart Rate 113 AXIS OR 141 P 52 QRSd 137 QRS 131 QT 368 T 0 QTc 505 Conclusion Sinus tachycardia...rate> 99 Ventricular premature complex...V complex w/ short R-R interval Probable left atrial enlargement...P >50mS, <-0.10mV V1 Right bundle branch block...QRSd>120, terminal axis(90,270) Physician: relatively unchanged from prior ekg on 01/14/16
--- NOTE | 2023-03-14 02:22 | W.ED.GENAD ---
Discharge Plan Disposition Patient Disposition: Transfer-Acute Inpatient Care Specific Acute Inpt Facility: [facility] Discharge Details Chief Complaint: GenMedical Clinical Impression: Acute kidney injury, Complication of transplanted kidney, Renal tubular acidosis, Fall Primary Care Provider: Shannan Stevens ED Provider: Kenan Bee Home Meds and New Rx's Prescriptions: No Action metoprolol succinate 100 mg tablet extended release 24 hr 50 mg PO BID methenamine hippurate 1 gram tablet 1 g PO BID ergocalciferol (vitamin D2) 1,250 mcg (50,000 unit) capsule 1,250 mcg PO QWEEK Patient Comments: TAKE 1 CAPSULE BY MOUTH ONCE A WEEK diltiazem HCl 120 mg capsule,extended release 24hr 120 mg PO DAILY atorvastatin [Lipitor] 20 mg tablet 20 mg PO DAILY Patient Comments: reported by pt from [facility] [place] [place] famotidine [Pepcid] 20 mg tablet 20 mg PO DAILY tamsulosin 0.4 mg capsule 0.4 mg PO QHS Patient Comments: reported by pt through [facility] [place] [place] acetaminophen 500 mg tablet 500 mg PO Q8H PRN PRN Patient Comments: reported by pt through [facility] [place] [place] sennosides [senna] 8.6 mg tablet 8.6 mg PO PRN Patient Comments: reported by pt through [facility] [place] [place] Pt can take 1-2 tabs BID prednisone 10 mg tablet 5 mg PO DAILY Patient Comments: takes 1/2 tab tacrolimus 0.5 mg capsule 0.5 mg PO Q12H potassium phosphate, monobasic 500 mg tablet,soluble 1,000 mg PO BID magnesium gluconate 500 mg tablet 1,500 mg PO TID mycophenolate sodium 180 mg tablet,delayed release (DR/EC) 180 mg PO DAILY metformin 500 mg tablet 500 mg PO BID diltiazem HCl 120 mg capsule,extended release 24 hr 120 mg PO DAILY Medical Decision Making This is a pleasant 72-year-old male with a past medical history of Goodpasture's syndrome (anti-GBM nephritis), subsequent kidney transplant on tacrolimus, ANCA associated vasculitis, COPD, hyperparathyroidism, chronic heart murmur, BPH, who presents today for evaluation. Patient states that he fell, and is unsure when. He woke up and was unsure how long he had been down. It may have been a few hours or few days. He states that he was slightly confused and felt very weak. His urine was the color of maple syrup. He called his ex- who then brought him to the emergency department for further evaluation. He does admit to an episode or 2 of vomiting. He denies any chest pain or shortness of breath. He denies any numbness tingling or weakness. He is not sure what caused the initial syncopal or falling event. He is uncertain if he hit his head or not. He states that he feels much better at this time, but still feels somewhat weak. No other complaints at this time. No other modifying factors. Exam demonstrates relatively well-appearing male, he is hypertensive, slightly tachycardic. Abdomen nontender. Blood sugar normal. Differential is broad but includes UTI, rejection of transplant, brain bleed after fall, amongst many other concerning etiologies. Electrolyte abnormality or dysrhythmias of concern. Will evaluate for these, monitor closely and reassess. 4:[address] scan demonstrates no acute processes, laboratory work-up shows a slightly elevated creatinine at 1.7, WBC count of 13, hemoglobin of 19 suggesting hemoconcentration from dehydration. CPK is mildly elevated at 476, GFR is 42. Urinalysis just returned and shows large blood, 5-10 RBCs, but coarse granular casts and high levels of protein greater than 300. Troponin normal, EKG shows no evidence of STEMI. Concern for dehydration/rejection/kidney damage. Discussed the case with Dr. Caraballo of [facility] and at this stage he recommends alkalinizing the urine with 3 A of bicarb in 1 L of sterile water and running that at 3 cc/kg/h. We will start this here. He recommends transfer. Patient will be transferred to [facility]. Pending discussion with medicine team. 5:36 AM Discussed the case with the hospitalist , he agrees with the assessment and plan. I have extensively reviewed the treatment plan with the patient. I have addressed all patient concerns at this time. I have also discussed the plan with the admitting physician and they agree with the current assessment and plan and have agreed to assume responsibility for the patient. All parties demonstrate verbal understanding and agreement with our assessment and plan at this time. The documentation in this chart was dictated using [employer] dictation software. Please excuse any dictation errors. At time of transfer the patient was reassessed and continued to demonstrate No signs of acute respiratory distress requiring intubation, hemodynamic instability requiring pressor support, or rapidly declining mental status. FINDINGS: Lungs: Paraseptal emphysema. Lungs otherwise clear. Aortic valve calcification may signify aortic valve stenosis. No pulmonary contusion. Pleural spaces: No pneumothorax or hemothorax. Heart: See Lungs finding. Lymph nodes: Unremarkable. No enlarged lymph nodes. Vasculature: No traumatic aortic injury. No mediastinal hematoma, pneumomediastinum, or hemopericardium. Bones/joints: Unremarkable. No acute fracture. Soft tissues: Gynecomastia. IMPRESSION: No acute traumatic injury. FINDINGS: Brain: There is moderate diffuse cerebral atrophy present, consistent with this patient's age. There is mild diffuse heterogeneity of the white matter attenuation, this change is nonspecific but is likely secondary to chronic ischemia within microvascular distributions. No mass effect. Cerebral ventricles: Normal in configuration. No intraventricular hemorrhage. Paranasal sinuses: Mucoperiosteal thickening in maxillary sinuses. 1 cm cyst in left maxillary sinus. No fluid levels. Mastoid air cells: Visualized mastoid air cells are well aerated. Bones/joints: Unremarkable. No acute fracture. Soft tissues: Unremarkable. IMPRESSION: Artifact limits evaluation through skull base and small parenchymal or extra-axial hemorrhage can not be excluded in the area. FINDINGS: Liver: Small incidental hepatic cyst. Small incidental hepatic cyst. Gallbladder and bile ducts: Gallbladder sludge. No cholecystitis. No biliary ductal dilatation. Pancreas: There are multiple cystic lesions associated with the pancreas, the largest of which is 2 cm and demonstrates some dependent/posterior calcification, indeterminate. Spleen: Normal. Adrenal glands: Normal. No mass. Kidneys and ureters: Chronic medical renal disease of the [place] kidneys. Stomach and bowel: Colonic diverticulosis. No diverticulitis. No bowel wall thickening or intestinal obstruction. Appendix: Normal appendix. Intraperitoneal space: No hemoperitoneum, pneumoperitoneum, mesenteric/omental contusion, or retroperitoneal hematoma. Vasculature: Unremarkable. Lymph nodes: Unremarkable. Urinary bladder: Unremarkable as visualized. Reproductive: Unremarkable as visualized. Bones/joints: Unremarkable. No acute fracture. Soft tissues: Unremarkable. Other findings: No traumatic organ injury. IMPRESSION: 1. There are multiple cystic lesions associated with the pancreas, the largest of which is 2 cm and demonstrates some dependent/posterior calcification, indeterminate. 2. No acute traumatic injury Thank you for allowing us to participate in the care of your patient. Dictated and Authenticated by: Zion Lala MD 03/14/2023 4:17 AM Eastern Time ([place] & [place]) HPI General Date/Time Provider Initiated Documentation: 03/14/23 02:04. HPI Narrative: This is a pleasant 72-year-old male with a past medical history of Goodpasture's syndrome (anti-GBM nephritis), subsequent kidney transplant on tacrolimus, ANCA associated vasculitis, COPD, hyperparathyroidism, chronic heart murmur, BPH, who presents today for evaluation. Patient states that he fell, and is unsure when. He woke up and was unsure how long he had been down. It may have been a few hours or few days. He states that he was slightly confused and felt very weak. His urine was the color of maple syrup. He called his ex- who then brought him to the emergency department for further evaluation. He does admit to an episode or 2 of vomiting. He denies any chest pain or shortness of breath. He denies any numbness tingling or weakness. He is not sure what caused the initial syncopal or falling event. He is uncertain if he hit his head or not. He states that he feels much better at this time, but still feels somewhat weak. No other complaints at this time. No other modifying factors. Related Data Home Medications Medication Instructions Recorded Confirmed acetaminophen 500 mg tablet 500 mg PO Q8H PRN PRN 02/13/21 03/14/23 atorvastatin 20 mg tablet (Lipitor) 20 mg PO DAILY 02/13/21 03/14/23 diltiazem HCl 120 mg 120 mg PO DAILY 02/13/21 03/14/23 capsule,extended release 24 hr famotidine 20 mg tablet (Pepcid) 20 mg PO DAILY 02/13/21 03/14/23 magnesium gluconate 500 mg tablet 1,500 mg PO TID 02/13/21 03/14/23 potassium phosphate, monobasic 500 1,000 mg PO BID 02/13/21 03/14/23 mg soluble tablet prednisone 10 mg tablet 5 mg PO DAILY 02/13/21 03/14/23 sennosides 8.6 mg tablet (senna) 8.6 mg PO PRN 02/13/21 03/14/23 tacrolimus 0.5 mg capsule, 0.5 mg PO Q12H 02/13/21 03/14/23 immediate-release tamsulosin 0.4 mg capsule 0.4 mg PO QHS 02/13/21 03/14/23 methenamine hippurate 1 gram tablet 1 g PO BID 02/19/22 03/14/23 metoprolol succinate 100 mg 50 mg PO BID 02/19/22 03/14/23 tablet,extended release 24 hr mycophenolate sodium 180 mg 180 mg PO DAILY 02/19/22 03/14/23 tablet,delayed release metformin 500 mg tablet 500 mg PO BID 09/10/22 03/14/23 ergocalciferol (vitamin D2) 1,250 1,250 mcg PO QWEEK 11/24/22 03/14/23 mcg (50,000 unit) capsule diltiazem HCl 120 mg capsule,24 120 mg PO DAILY 03/14/23 03/14/23 hr,extended release Allergies Allergy/AdvReac Type Severity Reaction Status Date / Time Penicillins Allergy Severe CARDIAC Unverified 03/14/23 03:30 ARREST ibuprofen AdvReac Intermediate its hard Verified 03/14/23 03:30 on my kidneys lisinopril AdvReac Intermediate cough Unverified 03/14/23 03:30 General JENNIFER: 4 Review of Systems All systems reviewed & are unremarkable except as noted in HPI and below PFSH All Active Problems Fall (Acute) Renal tubular acidosis (Acute) Complication of transplanted kidney (Acute) Acute kidney injury (Acute) ANCA-positive vasculitis (Acute 03/09/16) Essential hypertension (Acute 05/01/13) Hyperlipidemia (Acute) Non-alcoholic fatty liver disease (Acute) Tubular adenoma (Acute) 06/30/15; DR. 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 Renal failure. Pulmonary dysfunction. anti GBM nephropathy ANCA positive Colon polyp, hyperplastic 2005 Hyperlipidemia Pancreatitis Surgical History Wound dehiscence, internal operation (~04/2020) History of knee surgery Family History Mother , 83 Stroke Sister Breast cancer Brother Essential hypertension Heart disease Hyperlipidemia Maternal Grandfather Stroke Paternal Grandfather Personal history of malignant neoplasm LUNG Son Depression Daughter No problems noted. Father No problems noted. 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 Pets and animals: No Sexually active: No Do you think of yourself as: straight/heterosexual Current gender identity: male What is your relationship status?: How often do you talk on the phone with friends or family?: twice per week How often do you get together with friends or relatives?: twice per week How often do you attend pentecostal or taoism services?: decline to answer Do you belong to any clubs or organized social groups?: no Panel score (0-1 are the most socially isolated patients): 1 What type of physical activity do you participate in: other Duration: < 15 minutes/day Frequency: decline to answer Fiona/Denominational: None Special fiona needs: No Seatbelt use: sometimes Drive intox or ride w/intox route driver: No Do you feel safe at home: Yes Do you feel safe in your relationship?: Yes Additional Social history: lives alone Exam Narrative Exam Narrative: 1.Const: Well-nourished, Well-developed, appearing stated age 2.Eyes: PERRL, no conjunctival injection, and symmetrical lids. 3.ENT: Atraumatic external nose and ears. Moist MM. Neck: Symmetric, trachea midline, No thyromegaly. There is no evidence of raccoon eyes, barnes sign, CSF rhinorrhea, mastoid tenderness, cranial crepitus, hemotympanum, exophthalmos, or hyphema. 4.CVS: +S1/S2, No gallops. Peripheral pulses 2+ and equal in all extremities. Brisk capillary refill in all extremities. 5.RESP: Unlabored respiratory effort. Rhonchi on the left. No wheezes or rales otherwise. 6.GI: Soft, Nontender/Nondistended, No hepatosplenomegaly. No guarding or rebound. Kidney transplant site is dry and intact. No evidence of dehiscence. Small ulcers noted over the old incision site though. No active drainage or discharge. 7.MSK: Normocephalic/Atraumatic, Extremities w/o deformity or ttp No cyanosis or clubbing, Normal movement of all extremities. Left antecubital region demonstrates old AV fistula with palpable thrill 8.Skin: Warm, Dry. No rashes or lesions. 9.Neuro: director supplier quality II-XII grossly intact. Sensation grossly intact, no focal neurologic deficits. 10.Psych: (AAO) x3. Appropriate mood and affect Course Lab/Test Results Lab/Test Results: 03/14/23 02:16 Blood Blood Culture - Pending 03/14/23 02:16 Blood Blood Culture - Pending Critical Care Time Critical Care Time Critical Care Time: Yes Total Critical Care Time: 30 Attestation: Upon my evaluation, this patient had a high probability of imminent or life-threatening deterioration, which required my direct attention, intervention, and personal management. I have personally provided 30 minutes of critical care time exclusive of time spent on separately billable procedures. Time includes review of laboratory data, radiology results, discussion with consultants, and monitoring for potential decompensation. Interventions were performed as documented.
[2023-03-14] MEDS: Normal Saline 500 ML IV (02:26)
[2023-03-14 03:20] LABS: Lactate 3.4 mmol/L (0.6-1.4)
[2023-03-14 03:26] LABS: Abs Immature Grans 0.16 10^3/uL (0.0-0.06); Absolute Basophil Count 0.05 10^3/uL (0.0-0.2); Absolute Eosinophil Count 0.33 10^3/uL (0.0-0.7); Absolute Monocyte Count 1.16 10^3/uL (0.1-0.8); Absolute Neutrophil Count 11.04 10^3/uL (1.2-6.7); Basophils % 0.4; Eosinophils % 2.5; Immature Grans % 1.2; Lymphocytes % 4.1; MCH 29.1 pg (27.0-33.0); MCHC 31.7 % (32.0-36.0); MCV 92 fL (80-95); Monocytes % 8.7; Neutrophils % 83.1; RBC 6.64 10^6/uL (4.36-5.78); RDW 14.6 % (11.8-14.1); RDW-SD 47.3 fL; WBC 13.29 10^3/uL (4.4-10.8)
[2023-03-14 03:31] LABS: INR 1.1 (0.9-1.1); PTT Activated 24.7 sec (23.6-32.8); Prothrombin Time 11.1 sec (9.1-11.1)
[2023-03-14 03:35] LABS: ALT 304 U/L (16-63); AST 50 U/L (15-37); Albumin 3.4 g/dL (3.4-5.0); Alkaline Phosphatase 175 U/L (46-116); Anion Gap 12.6 mmol/L (3-11); BUN 47 mg/dL (7-18); Bilirubin, Total 2.3 mg/dL (0.2-1.0); CO2 25.4 mmol/L (21.0-32.0); CREATININE 1.7 mg/dL (0.70-1.30); Calcium 11.1 mg/dL (8.5-10.1); Chloride 105 mmol/L (98-107); Creatine Kinase 476 U/L (39-308); Estimated GFR 42.04 (mL/min/1.73m2); Glucose 159 mg/dL (74-106); Potassium 3.2 mmol/L (3.5-5.1); Sodium 143 mmol/L (136-145); Troponin I < 50 ng/L (<or=60)
[2023-03-14 03:36] LABS: Absolute Lymphocyte Count 0.54 10^3/uL (1.2-3.4)
[2023-03-14 03:38] LABS: HCT 60.8 % (40.0-50.0); HGB 19.3 g/dL (13.5-17.5)
[2023-03-14 03:53] LABS: Platelet Count 51 10^3/uL (130-400)
[2023-03-14 03:54] LABS: Diff Comment RBC Morph Reviewed; Polychromasia Present
--- NOTE | 2023-03-14 03:59 | DI.VRAD_ITS ---
PROCEDURE INFORMATION: Exam: CT Head Without Contrast Exam date and time: 03/14/2023 3:28 AM Age: 72 years old Clinical indication: Injury or trauma; Injury date: 03/14/23; Injury details: Fall, syncope, eval for bleed TECHNIQUE: Imaging protocol: Computed tomography of the head without contrast. Radiation optimization: All CT scans at this facility use at least one of these dose optimization techniques: automated exposure control; mA and/or kV adjustment per patient size (includes targeted exams where dose is matched to clinical indication); or iterative reconstruction. Other technique: Beam hardening artifact limits evaluation through skull base. COMPARISON: No relevant prior studies available. FINDINGS: Brain: There is moderate diffuse cerebral atrophy present, consistent with this patient's age. There is mild diffuse heterogeneity of the white matter attenuation, this change is nonspecific but is likely secondary to chronic ischemia within microvascular distributions. No mass effect. Cerebral ventricles: Normal in configuration. No intraventricular hemorrhage. Paranasal sinuses: Mucoperiosteal thickening in maxillary sinuses. 1 cm cyst in left maxillary sinus. No fluid levels. Mastoid air cells: Visualized mastoid air cells are well aerated. Bones/joints: Unremarkable. No acute fracture. Soft tissues: Unremarkable. IMPRESSION: Artifact limits evaluation through skull base and small parenchymal or extra-axial hemorrhage can not be excluded in the area. Dictated and Authenticated by: Adrián Welch MD. Ordering:CAROLA Grayson MD
--- NOTE | 2023-03-14 04:18 | DI.VRAD_ITS ---
PROCEDURE INFORMATION: Exam: CT Chest Without Contrast; Diagnostic Exam date and time: 03/14/2023 3:34 AM Age: 72 years old Clinical indication: Abdominal tenderness; Prior surgery; Surgery date: 6+ months; Surgery type: Kidney transplant; Patient HX: Fall, cough, abd pain TECHNIQUE: Imaging protocol: Diagnostic computed tomography of the chest without contrast. Radiation optimization: All CT scans at this facility use at least one of these dose optimization techniques: automated exposure control; mA and/or kV adjustment per patient size (includes targeted exams where dose is matched to clinical indication); or iterative reconstruction. COMPARISON: CR XR CHEST 2V PA LATERAL 11/03/2020 10:59 AM FINDINGS: Lungs: Paraseptal emphysema. Lungs otherwise clear. Aortic valve calcification may signify aortic valve stenosis. No pulmonary contusion. Pleural spaces: No pneumothorax or hemothorax. Heart: See Lungs finding. Lymph nodes: Unremarkable. No enlarged lymph nodes. Vasculature: No traumatic aortic injury. No mediastinal hematoma, pneumomediastinum, or hemopericardium. Bones/joints: Unremarkable. No acute fracture. Soft tissues: Gynecomastia. IMPRESSION: No acute traumatic injury. PROCEDURE INFORMATION: Exam: CT Abdomen And Pelvis Without Contrast Exam date and time: 03/14/2023 3:34 AM Age: 72 years old Clinical indication: Abdominal tenderness; Prior surgery; Surgery date: 6+ months; Surgery type: Kidney transplant; Patient HX: Fall, cough, abd pain TECHNIQUE: Imaging protocol: Computed tomography of the abdomen and pelvis without contrast. Radiation optimization: All CT scans at this facility use at least one of these dose optimization techniques: automated exposure control; mA and/or kV adjustment per patient size (includes targeted exams where dose is matched to clinical indication); or iterative reconstruction. COMPARISON: MRI - R LOWER EXT WO CONT 11/29/2017 4:33 PM FINDINGS: Liver: Small incidental hepatic cyst. Small incidental hepatic cyst. Gallbladder and bile ducts: Gallbladder sludge. No cholecystitis. No biliary ductal dilatation. Pancreas: There are multiple cystic lesions associated with the pancreas, the largest of which is 2 cm and demonstrates some dependent/posterior calcification, indeterminate. Spleen: Normal. Adrenal glands: Normal. No mass. Kidneys and ureters: Chronic medical renal disease of the [place] kidneys. Stomach and bowel: Colonic diverticulosis. No diverticulitis. No bowel wall thickening or intestinal obstruction. Appendix: Normal appendix. Intraperitoneal space: No hemoperitoneum, pneumoperitoneum, mesenteric/omental contusion, or retroperitoneal hematoma. Vasculature: Unremarkable. Lymph nodes: Unremarkable. Urinary bladder: Unremarkable as visualized. Reproductive: Unremarkable as visualized. Bones/joints: Unremarkable. No acute fracture. Soft tissues: Unremarkable. Other findings: No traumatic organ injury. IMPRESSION: 1. There are multiple cystic lesions associated with the pancreas, the largest of which is 2 cm and demonstrates some dependent/posterior calcification, indeterminate. 2. No acute traumatic injury. Dictated and Authenticated by: Zion Lala MD. Ordering:CAROLA Grayson MD
[2023-03-14 04:31] LABS: Bilirubin Moderate (Negative); Blood Large (Negative); Glucose Negative (Negative); Ketones Negative (Negative); Leukocyte Esterase Negative (Negative); Nitrite Negative (Negative); Specific Gravity >= 1.030 (1.005-1.025); pH 5.5 (5-8)
[2023-03-14 04:42] LABS: Bacteria Moderate HPF (Negative); C & S Indicated? Yes; Clarity Cloudy (Clear); Crystals Few Amorphous HPF (Negative); Epithelial Cells Rare HPF (Negative); Mucus Trace (Negative)
[2023-03-14] MEDS: Sodium Bicarbonate 50 MEQ/50 ML SYR 150 MEQ IVP (05:56)
--- NOTE | 2023-03-14 10:07 | ED.PROG_ITS ---
Date of service: 03/14/23 Time of Service: 10:07 Medical Decision Making Patient boarding in the emergency department waiting for transfer to [facility]. Home medications have been ordered. We will continue monitoring Discharge Plan Disposition Patient Disposition: Transfer-Acute Inpatient Care Specific Acute Inpt Facility: [facility] Discharge Details Clinical Impression: Acute kidney injury, Complication of transplanted kidney, Renal tubular acidosis, Fall Primary Care Provider: Shannan Stevens ED Provider: Kenan Bee Home Meds and New Rx's Prescriptions: No Action metoprolol succinate 100 mg tablet extended release 24 hr 50 mg PO BID methenamine hippurate 1 gram tablet 1 g PO BID ergocalciferol (vitamin D2) 1,250 mcg (50,000 unit) capsule 1,250 mcg PO QWEEK Patient Comments: TAKE 1 CAPSULE BY MOUTH ONCE A WEEK diltiazem HCl 120 mg capsule,extended release 24hr 120 mg PO DAILY atorvastatin [Lipitor] 20 mg tablet 20 mg PO DAILY Patient Comments: reported by pt from [facility] [place] famotidine [Pepcid] 20 mg tablet 20 mg PO DAILY tamsulosin 0.4 mg capsule 0.4 mg PO QHS Patient Comments: reported by pt through [facility] [place] [place] acetaminophen 500 mg tablet 500 mg PO Q8H PRN PRN Patient Comments: reported by pt through [facility] [place] sennosides [senna] 8.6 mg tablet 8.6 mg PO PRN Patient Comments: reported by pt through [facility] [place] Pt can take 1-2 tabs BID prednisone 10 mg tablet 5 mg PO DAILY Patient Comments: takes 1/2 tab tacrolimus 0.5 mg capsule 0.5 mg PO Q12H potassium phosphate, monobasic 500 mg tablet,soluble 1,000 mg PO BID magnesium gluconate 500 mg tablet 1,500 mg PO TID mycophenolate sodium 180 mg tablet,delayed release (DR/EC) 180 mg PO DAILY metformin 500 mg tablet 500 mg PO BID diltiazem HCl 120 mg capsule,extended release 24 hr 120 mg PO DAILY
--- NOTE | 2023-03-14 13:08 | NUR.NOTE ---
in chart to check the status of EKGNursing Note:
--- NOTE | 2023-03-15 10:06 | NUR.NOTE ---
in chart to check the status of EKG Nursing Note:
[2023-03-15 11:50] LABS: Tacrolimus <2.0 ng/mL (See Note)
--- NOTE | 2023-03-16 07:15 | NUR.NOTE ---
Accessed pt chart to cancel duplicate EKG order. Nursing Note:
== END 2023-03-14 11:23 | disposition short-term general hospital (02) ==
PROVIDERS: Emergency Provider Student in an Organized Health Care Education/Training Program; PCP Family Medicine
DX: R55 Syncope and collapse (principal); J44.9 Chronic obstructive pulmonary disease, unspecified; Z79.899 Other long term (current) drug therapy; T86.19 Other complication of kidney transplant; N25.89 Other disorders resulting from impaired renal tubular function; W19.XXXA Unspecified fall, initial encounter; E21.3 Hyperparathyroidism, unspecified; I77.82 Antineutrophilic cytoplasmic antibody [ANCA] vasculitis
CPT/HCPCS: 00123; 36415; 71250; 80053; 82550; 82962; 87040; 87077; 93005; 96361; 96374; 99291; 70450; 74176; 80197; 81003; 81015; 83605; 84484; 85025; 85610; 85730; 87086; 87186; 93010

== ENCOUNTER 2023-06-13 10:59 | Outpatient (CLI) | payer BC, MEDICARE, SELFPAY ==
[2023-06-13 10:46] LABS: Abs Immature Grans 0.22 10^3/uL (0.0-0.06); Absolute Monocyte Count 1.11 10^3/uL (0.1-0.8); Basophils % 0.5; HCT 48.7 % (40.0-50.0); HGB 15.7 g/dL (13.5-17.5); Immature Grans % 1.2; Lymphocytes % 12.4; MCH 29.8 pg (27.0-33.0); MCHC 32.2 % (32.0-36.0); MCV 92 fL (80-95); MPV 10.2 fL (8.0-11.0); Monocytes % 5.9; Platelet Count 194 10^3/uL (130-400); RBC 5.27 10^6/uL (4.36-5.78); RDW-SD 44.1 fL; WBC 18.82 10^3/uL (4.4-10.8)
[2023-06-13 10:49] LABS: Absolute Basophil Count 0.09 10^3/uL (0.0-0.2); Absolute Lymphocyte Count 2.33 10^3/uL (1.2-3.4); Absolute Neutrophil Count 15.06 10^3/uL (1.2-6.7)
[2023-06-13 11:21] LABS: ALT 42 U/L (16-63); AST 16 U/L (15-37); Albumin 3.7 g/dL (3.4-5.0); Alkaline Phosphatase 98 U/L (46-116); Anion Gap 10.7 mmol/L (3-11); BUN 13 mg/dL (7-18); Bilirubin, Total 0.5 mg/dL (0.2-1.0); CO2 25.3 mmol/L (21.0-32.0); CREATININE 1.3 mg/dL (0.70-1.30); Chloride 104 mmol/L (98-107); Estimated GFR 58.01 (mL/min/1.73m2); Glucose 129 mg/dL (74-106); Potassium 3.9 mmol/L (3.5-5.1); Sodium 140 mmol/L (136-145)
== END 2023-06-13 11:00 | disposition home or self-care (01) ==
LOC: LBO 10:59
PROVIDERS: PCP Family Medicine; Visit Provider Physician Assistant
DX: D72.829 Elevated white blood cell count, unspecified (principal)
CPT/HCPCS: 36415; 80053; 87040; 85025

== ENCOUNTER → 2023-06-13 11:00 | Outpatient (CLI) | payer BC, MEDICARE, SELFPAY ==
--- NOTE | 2023-06-13 10:14 | DI.RAD_ITS ---
Exam(s) XR CHEST 2V PA LATERAL EXAM: XR CHEST 2V PA LATERAL CLINICAL HISTORY: D72.829 Elevated white blood cell count,unspecified; cough, leukocytosis TECHNIQUE: 2D digital imaging was performed. COMPARISON: CR XR CHEST 2V PA LATERAL from 11/03/[address] CHEST/ABD/PEL WO from 03/14/2023 FINDINGS: HEART: Normal size. Aorta: Not dilated. PULMONARY VASCULATURE: Normal. LUNGS: Basilar fibrotic changes. No superimposed infiltrate. PLEURAL SPACE: No pleural effusion or pneumothorax. BONE:Unremarkable for age. Soft tissues: Unremarkable. IMPRESSION: Basilar fibrosis. No acute abnormality. DATA REPOSITORY: RADIATION DOSE DELIVERED:
== END ==
PROVIDERS: PCP Family Medicine; Visit Provider Physician Assistant
DX: D72.829 Elevated white blood cell count, unspecified (principal); J84.10 Pulmonary fibrosis, unspecified
CPT/HCPCS: 71046

== ENCOUNTER → 2023-06-30 02:14 | Outpatient (CLI) | payer OTHER, SELFPAY ==
--- NOTE | 2023-06-30 13:05 | DI.MRI_ITS ---
Exam(s) MR ABDOMEN WO EXAM: MR ABDOMEN WO CLINICAL HISTORY: [id number],F/[place]CREATIC [place] [place]: Multiplanar multisequence MRI was performed with both pre and post contrast infused seque nces. Contrast injected sequences were performed following IV injection of cc of Dotarem. COMPARISON: CT UPPER ABD W/WO CONTRAST(P) from 12/11/[address] CHEST/ABD/PEL WO from 03/14/2023 US US ABDOMEN LIMITED from 04/26/2023 CR XR CHEST 2V PA LATERAL from 06/13/2023 FINDINGS: VISUALIZED LUNG BASES: No pleural effusions evident. There is no ascites evident. LIVER: There are multiple benign-appearing small cysts in the liver, the largest measuring approximat lex 1.5 cm., not increased in size from CT scan of 03 16 23 BILIARY: There is no obvious gallbladder pathology. The CBD is not dilated. PANCREAS: There are multiple cystic findingsin the pancreas involving the head/uncinate, neck, body, and tail. Suspect these are all similar pathology. At the pancreatic tail level there is a conglome ration of 3 cystic structures, the largest measuring 1.7 by 1.7 by 2.0 cm. Combined measurement is 3. 3 x 3 cm. At the junction of the body and tail there is a cyst which measures 3.8 cm craniocaudal by 2 cm wide by 1.9 cm AP. Another smaller cyst is seen at this level as well as other smaller cysts in the pancreatic body. At the pancreatic head level there is a 1.5 x 1.8 cm cyst. Other smaller cysts a re also seen in the pancreatic head and uncinate process. There are no solid pancreatic masses. No pe ripancreatic lymphadenopathy. No vascular encasement evident. These. Multiple cysts do not obviously communicate with pancreatic duct. SPLEEN: Spleen is not enlarged and there are no intrasplenic lesions.Splenic and portal veins are pat ent ADRENALS: There are no significant adrenal masses. KIDNEYS: Both kidneys are somewhat atrophic and contain multiple benign cysts. The largest is in the right kidney and measures 2 x 1.8 cm. There are no solid renal masses.No cysts evident. ABDOMINAL AORTA: Not enlarged and there is no significant para-aortic adenopathy. ANTERIOR ABDOMINAL WALL/GI: There is no evidence of significant anterior abdominal wall hernia in the field of view of this study.Is no evidence of obvious bowel obstruction. OSSEOUS: There are no lytic osseous lesions in the field of view of this study. IMPRESSION: 1. There are multiple cystic structures in the pancreas involving the head, uncinate process, body, a nd tail, measuring up to 3.8 cm size. Recommend follow-up reimaging MRI in 6 months. Reference:Reji MARTINS et al. Management of incidental pancreatic cysts: A white paper of the ACR incid ental findings committee. During all [employer] 2017 (volume 14/issue 7 pages 766- 287). 2. Bilateral renal atrophy with multiple small benign renal cysts but no solid renal masses. There is apparently a pelvic transplant kidney in this patient which is beyond the field of view of this abdo fredrick study. 3. Multiple small benign appendix cysts noted. DATA REPOSITORY:
--- NOTE | 2023-06-30 15:32 | DI.VRAD_ITS ---
PROCEDURE INFORMATION: Exam: MR Abdomen Without Contrast Exam date and time: 06/30/2023 12:25 PM Age: 73 years old Clinical indication: Other: F/u pancreatic cyst TECHNIQUE: Imaging protocol: Magnetic resonance imaging of the abdomen without contrast. COMPARISON: MR ABDOMEN ADULT 03/20/2023 5:59 PM FINDINGS: Liver: Numerous tiny hepatic cysts, too numerous to count. The largest is in the medial right hepatic lobe measures approximately 1 cm. Gallbladder and bile ducts: Unremarkable. No stones. No ductal dilation. Pancreas: Numerous pancreatic cysts, too numerous to count. The largest is in the mid tail of the pancreas and measures approximately 3.9 cm in craniocaudad dimension. This previously measured 2.9 cm. Multiloculated group of cysts in the distal tail measuring approximately 3.6 cm in transverse dimension. These cysts do not definitely appear to be connected to the main pancreatic duct. No solid mass identified. Spleen: Unremarkable. No splenomegaly. Adrenal glands: Unremarkable. No mass. Kidneys and ureters: Numerous benign bilateral renal cysts, too numerous to count. Largest is in the mid posterior right kidney and measures approximately 2.1 cm. No solid mass identified. Kidneys are atrophic Stomach and bowel: Visualized stomach and intestines are unremarkable. Intraperitoneal space: No free fluid. Vasculature: No abdominal aortic aneurysm. Bones/joints: Unremarkable. Soft tissues: Unremarkable. IMPRESSION: 1. Multiple pancreatic parenchymal cysts. The largest is 3.9 cm has increased in size since 03/20/2023.Reimaging every 6 months for 2 years is recommended. (Reference: Reji, 2017) References: Reji MARTINS, et al. Management of Incidental Pancreatic Cysts: A White Paper of the ACR Incidental Findings Committee. J Am Deway[employer] Radiol. 2017;14(7):911-923. 2. Multiple benign renal cysts with bilateral renal atrophy 3. Benign hepatic cysts Dictated and Authenticated by: Etelvina Lim MD. Ordering:VICTOR HUGO Argueta MD
== END ==
PROVIDERS: PCP Family Medicine; Visit Provider Physician Assistant
DX: N28.1 Cyst of kidney, acquired (principal); K38.8 Other specified diseases of appendix; N26.1 Atrophy of kidney (terminal)
CPT/HCPCS: 74181

== ENCOUNTER → 2023-09-21 09:41 | Outpatient (BNVA) | payer BC, MEDICARE, SELFPAY | PROVIDERS: PCP Family Medicine; Referring Provider Family Medicine; Visit Provider Psychiatry & Neurology Neurology | CPT/HCPCS: 99215 ==

== ENCOUNTER 2023-10-17 12:27 | Outpatient (CLI) | payer BC, MEDICARE, SELFPAY ==
[2023-10-17 11:18] LABS: Abs Immature Grans 0.12 10^3/uL (0.0-0.06); Absolute Basophil Count 0.06 10^3/uL (0.0-0.2); Absolute Lymphocyte Count 1.21 10^3/uL (1.2-3.4); Absolute Monocyte Count 0.91 10^3/uL (0.1-0.8); Absolute Neutrophil Count 11.75 10^3/uL (1.2-6.7); Basophils % 0.4 %; HCT 49.1 % (40.0-50.0); HGB 15.7 g/dL (13.5-17.5); Immature Grans % 0.9 %; Lymphocytes % 8.6 %; MCH 29.1 pg (27.0-33.0); MCV 91 fL (80-95); MPV 10.4 fL (8.0-11.0); Monocytes % 6.5 %; Neutrophils % 83.6 %; Platelet Count 164 10^3/uL (130-400); RBC 5.39 10^6/uL (4.36-5.78); RDW 13.9 % (11.8-14.1); RDW-SD 46.6 fL; WBC 14.06 10^3/uL (4.4-10.8)
[2023-10-17 11:39] LABS: ALT 36 U/L (16-63); AST 13 U/L (15-37); Albumin 3.7 g/dL (3.4-5.0); Alkaline Phosphatase 105 U/L (46-116); BUN 16 mg/dL (7-18); Bilirubin, Total 0.7 mg/dL (0.2-1.0); CREATININE 1.4 mg/dL (0.70-1.30); Calcium 10.2 mg/dL (8.5-10.1); Chloride 107 mmol/L (98-107); Estimated GFR 52.74 (mL/min/1.73m2); Glucose 236 mg/dL (74-106); Potassium 3.5 mmol/L (3.5-5.1); Sodium 143 mmol/L (136-145); Total Protein 6.7 g/dL (6.4-8.2)
== END 2023-10-17 12:28 | disposition home or self-care (01) ==
LOC: LBO 12:33
PROVIDERS: PCP Family Medicine; Visit Provider Family Medicine
DX: K75.0 Abscess of liver (principal); B96.89 Other specified bacterial agents as the cause of diseases classified elsewhere
CPT/HCPCS: 36415; 80053; 85025

== ENCOUNTER 2023-11-02 05:28 | Outpatient (CLI) | payer BC, MEDICARE, SELFPAY ==
[2023-11-02 12:41] LABS: Hemoglobin A1C 7.1 % (<5.7)
== END 2023-11-02 05:29 | disposition home or self-care (01) ==
PROVIDERS: PCP Family Medicine; Visit Provider Family Medicine
DX: E11.65 Type 2 diabetes mellitus with hyperglycemia (principal)
CPT/HCPCS: 36415; 83036

== ENCOUNTER → 2023-12-30 00:32 | Outpatient (CLI) | payer OTHER, SELFPAY ==
--- NOTE | 2023-12-30 | DI.MRI_ITS ---
Exam(s) MR ABDOMEN WO EXAM: MR ABDOMEN WO CLINICAL HISTORY: 6 MO F/U PANCREATIC CYSTS,k86.2,[id number] TECHNIQUE: Multiplanar multisequence MRI of the Abdomen was performed. MRCP sequences also performed. CR XR CHEST 2V PA LATERAL from 06/13/2023 MR MR ABDOMEN WO from 06/30/2023 FINDINGS: Liver: Stable multiple cysts. Gallbladder: Unremarkable. Bile Ducts: Unremarkable. Pancreas: Stable size and appearance of multiple cysts. Summary shunt of cysts again noted in the ta il. No solid masses. No pancreatic ductal dilatation. Adrenals: Unremarkable. Kidneys: Atrophic. Stable multiple cysts. Right renal transplant partially included in field of vie w is unremarkable where visualized.. Spleen: Unremarkable. Aorta: Unremarkable. Soft Tissues: Unremarkable. Bone: Stable mild compression fracture of T12. No suspicious lesions. Lymph Nodes: Unremarkable. Mesentery: No ascites. No focal fluid collection. Bowel: No abnormal dilatation or wall thickening. IMPRESSION: Stable size and appearance of multiple pancreatic cysts. Stable liver cysts.. Stable innumerable re nal cysts. Normal MRCP. DATA REPOSITORY:
== END ==
PROVIDERS: PCP Family Medicine; Visit Provider Physician Assistant
DX: K86.2 Cyst of pancreas (principal); K76.89 Other specified diseases of liver; N28.1 Cyst of kidney, acquired
CPT/HCPCS: 74181

== ENCOUNTER 2024-02-29 10:12 | Outpatient (CLI) | payer BC, MEDICARE, SELFPAY ==
[2024-02-29 12:31] LABS: Abs Immature Grans 0.14 10^3/uL (0.0-0.06); Absolute Basophil Count 0.06 10^3/uL (0.0-0.2); Absolute Lymphocyte Count 1.34 10^3/uL (1.2-3.4); Absolute Monocyte Count 0.77 10^3/uL (0.1-0.8); Basophils % 0.4 %; HCT 49.8 % (40.0-50.0); HGB 15.5 g/dL (13.5-17.5); Lymphocytes % 9.6 %; MCH 28.5 pg (27.0-33.0); MCHC 31.1 % (32.0-36.0); MCV 92 fL (80-95); Monocytes % 5.5 %; Neutrophils % 83.5 %; Platelet Count 180 10^3/uL (130-400); RBC 5.44 10^6/uL (4.36-5.78); RDW 13.5 % (11.8-14.1); RDW-SD 45.3 fL; WBC 13.96 10^3/uL (4.4-10.8)
[2024-02-29 12:34] LABS: Absolute Neutrophil Count 11.66 10^3/uL (1.2-6.7)
== END 2024-02-29 10:13 | disposition home or self-care (01) ==
LOC: LOS 10:13
PROVIDERS: PCP Family Medicine; Referring Provider Family Medicine; Visit Provider Family Medicine
DX: D84.9 Immunodeficiency, unspecified (principal)
CPT/HCPCS: 36415; 85025

== ENCOUNTER 2024-06-09 12:18 | Inpatient (IN) | payer OTHER, SELFPAY ==
[2024-06-09] VITALS (66 sets, daily range): BP systolic 158–224; BP diastolic 74–120; PULSE 51–89; RESP 16–20; TEMP 36.4; O2SAT 90–98
--- NOTE | 2024-06-09 12:15 | RT.EKG_ITS ---
APPROVED REPORT Exam: Resting ECG Reason for Exam: Dizzyness and SOB Patient Location: E HR:58 bpm ECG Measurements Heart Rate 58 AXIS DE 115 P -49 QRSd 154 QRS 107 QT 469 T 15 QTc 463 Conclusion Sinus or ectopic atrial bradycardia...P axis (-45,135), rate< 60 Right bundle branch block...QRSd>120, terminal axis(90,270)
--- NOTE | 2024-06-09 12:24 | W.ED.GENAD ---
Discharge Plan Disposition Patient Disposition: Admit to [facility] Discharge Details Chief Complaint: Dizzy/Sync Clinical Impression: Acute CVA (cerebrovascular accident), S/P kidney transplant, Immunosuppressed status, Vascular dementia, Hypertension Primary Care Provider: Shannan Stevens ED Provider: Reddy Cannon Home Meds and New Rx's Prescriptions: No Action ergocalciferol (vitamin D2) 1,250 mcg (50,000 unit) capsule 1,250 mcg PO QWEEK Patient Comments: TAKE 1 CAPSULE BY MOUTH ONCE A WEEK mycophenolate sodium 180 mg tablet,delayed release (DR/EC) 180 mg PO DAILY Qty: 90 0RF diltiazem HCl 120 mg capsule,extended release 24 hr 120 mg PO DAILY Qty: 90 1RF atorvastatin [Lipitor] 20 mg tablet 20 mg PO DAILY Patient Comments: reported by pt from [facility] [place] famotidine [Pepcid] 20 mg tablet 20 mg PO DAILY potassium phosphate, monobasic 500 mg tablet,soluble 1,000 mg PO BID metformin 500 mg tablet 500 mg PO DAILY ketoconazole 2 % shampoo 1 applic topical .2 times weekly Rx Instructions: 04/10/24 [facility] losartan 100 mg tablet 100 mg PO DAILY Rx Instructions: 04/10/24 [facility] -[facility] magnesium oxide 400 mg magnesium capsule 400 mg PO BID Rx Instructions: 04/10/24 [facility] -[facility] methenamine hippurate 1 gram tablet 1 g PO BID Rx Instructions: 04/10/24 [facility] -[facility] metoprolol succinate 50 mg tablet extended release 24 hr 50 mg PO DAILY Rx Instructions: 04/10/24 [facility] -[facility] prednisone 5 mg tablet 5 mg PO DAILY Rx Instructions: 04/10/24 [facility] -[facility] tamsulosin 0.4 mg capsule 0.8 mg PO DAILY Rx Instructions: 04/10/24 [facility]: take 2 capsules PO every day 30 minutes after the same mealtime each day for prostate/urinary symptoms. -hb hydrocortisone 1 % cream 1 applic topical BID PRN Rx Instructions: 04/10/24 [facility], apply small amount for facial rash, use no longer than 3 days on face. -hb tacrolimus 0.5 mg capsule 0.5 mg PO Q12H Qty: 12 0RF HPI <Sindhu Willingham - Last Filed: 01/11/25 16:39> General Date/Time Provider Initiated Documentation: 06/09/24 12:19. HPI Narrative: Gamaliel is a 73 year old male who presents to the emergency department today for evaluation of generalized weakness with lightheadedness and diarrhea x 3 days. He denies associated fever/chills, headache, vision changes, congestion, sore throat, cough, change in baseline shortness of breath, nausea/vomiting, change in p.o. intake, abdominal discomfort, change in urine output/dysuria/hematuria, blood in stool, rashes/sores/wounds. He reports that he became concerned because today he was walking across his house and his legs felt weak, making concern that he would fall down. Dizziness/lightheadedness does not change with position, is described as a bowl around my head. He has not had his tacrolimus in 4 days, says he has been working with the pharmacy and PCP to try to get this taken care of. Past medical history is significant for kidney transplant in 2019, HTN, T2DM, iliac artery aneurysm, pancreatic cyst, vascular dementia. Physical exam reassuring. Gamaliel is alert and oriented, in no acute distress. Easy work of breathing, lung sounds clear bilaterally. Murmur noted, regular rate and rhythm. Abdomen is soft, nondistended, nontender to palpation with normoactive bowel sounds. Peripheral pulses intact. No pedal edema. No obvious sores or rashes noted. Moist mucous membranes. Normal gait, Romberg, rapid alternating movements, finger finger, finger-nose. PERRL, EOMs intact. Cranial nerves II through XII intact as tested. D/dx includes but is not limited to: Cardiac arrhythmia, electrolyte imbalance, viral illness, acute kidney rejection, kidney dysfunction, occult infection such as pneumonia or UTI I independently interpreted the following tests: EKG reassuring, sinus bradycardia 58, RBBB, no changes consistent with acute ischemia. Unchanged from previous. CBC reassuring, mild leukocytosis noted, unchanged from previous (pt on prednisone). CMP and TSH unremarkable. Mild hypomagnesemia noted, magnesium 1.6. UA reassuring, not consistent with UTI, only 100 protein noted. COVID/flu/RSV negative. While in the emergency department, Gamaliel received p.o. magnesium for replenishment and his home dose of tacrolimus. Overall workup today very reassuring. Patient was evaluated by PT to assess safety for discharge home. A call was placed to [facility] transplant team to discuss patient's presentation and reassuring workup. 1630: Discussed case with Dr. Pitt, transplant surgery. Reviewed patient labs, as creatinine is unchanged this is unlikely related to any sort of transplant rejection. Recommends giving 1 mg twice daily tacrolimus (6 tabs) until they can arrange for him to have his Prograf prescription sorted out on Tuesday. I did discuss with him neurofindings raised by physical therapist, including listing to the left side, dragging of right foot, and slowly left-sided rapid alternating movements that was a new finding and not seen on earlier neuro exam performed by myself. This is concerning for a neurological event such as CVA with unknown timeline (>3 days). A Noncontrast head CT has been ordered. Dr Pitt will place a neuro referral. Handoff report given to Nabil Cannon NP, evening DONTRELL. Related Data Home Medications ?Medication ?Instructions ?Recorded ?Confirmed atorvastatin 20 mg tablet (Lipitor) 20 mg PO DAILY 02/13/21 06/09/24 famotidine 20 mg tablet (Pepcid) 20 mg PO DAILY 02/13/21 06/09/24 potassium phosphate, monobasic 500 1,000 mg PO BID 02/13/21 06/09/24 mg soluble tablet ergocalciferol (vitamin D2) 1,250 1,250 mcg PO QWEEK 11/24/22 06/09/24 mcg (50,000 unit) capsule diltiazem HCl 120 mg capsule,24 120 mg PO DAILY #90 caps 05/13/23 06/09/24 hr,extended release mycophenolate sodium 180 mg 180 mg PO DAILY #90 tabs 08/24/23 06/09/24 tablet,delayed release metformin 500 mg tablet 500 mg PO DAILY 02/29/24 06/09/24 hydrocortisone 1 % topical cream 1 applic topical BID PRN 04/10/24 06/09/24 ketoconazole 2 % shampoo 1 applic topical .2 times weekly 04/10/24 06/09/24 losartan 100 mg tablet 100 mg PO DAILY 04/10/24 06/09/24 magnesium oxide 400 mg PO BID 04/10/24 06/09/24 methenamine hippurate 1 gram tablet 1 g PO BID 04/10/24 06/09/24 metoprolol succinate 50 mg 50 mg PO DAILY 04/10/24 06/09/24 tablet,extended release 24 hr prednisone 5 mg tablet 5 mg PO DAILY 04/10/24 06/09/24 tamsulosin 0.4 mg capsule 0.8 mg PO DAILY 04/10/24 06/09/24 tacrolimus 0.5 mg capsule, 0.5 mg PO Q12H #12 caps 06/07/24 06/09/24 immediate-release Previous Rx's ?Medication ?Instructions ?Recorded diltiazem HCl 120 mg capsule,24 120 mg PO DAILY #90 caps 05/13/23 hr,extended release mycophenolate sodium 180 mg 180 mg PO DAILY #90 tabs 08/24/23 tablet,delayed release tacrolimus 0.5 mg capsule, 0.5 mg PO Q12H #12 caps 06/07/24 immediate-release Allergies Allergy/AdvReac Type Severity Reaction Status Date / Time Penicillins Allergy Severe CARDIAC Unverified 06/09/24 12:28 ARREST ibuprofen AdvReac Intermediate its hard Verified 06/09/24 12:28 on my kidneys lisinopril AdvReac Intermediate cough Unverified 06/09/24 12:28 General JENNIFER: 4 Review of Systems <Sindhu Willingham - Last Filed: 06/09/24 16:39> Narrative: See HPI Exam <Sindhu Kapadia Filed: 06/09/24 16:39> Const General: cooperative, healthy appearing, comfortable, no acute distress and well developed Nutritional Appearance: average body habitus Orientation: alert [facility] Head: normal to inspection Ears: hearing grossly normal bilaterally General nose exam: external nose normal Face and sinus: normal facial exam Mouth: oral mucosae normal, lip normal, tongue normal, oropharynx normal and moist mucous membranes Resp Effort & Inspection: normal respiratory effort and able to speak in complete sentences Auscultation: clear to auscultation bilaterally Cardio Rate: regular rate Rhythm: regular rhythm Heart Sounds: murmur GI Inspection: normal to inspection and non-distended Palpation: soft, not firm and no guarding Auscultation: normal bowel sounds Neuro General: patient alert, patient oriented x3, gait normal, tone normal, moves all extremities, no meningeal signs, no focal motor deficits and CN's II-XI intact bilaterally Cranial Nerves: CN's II-XI intact bilaterally, PERRL, EOM intact bilaterally and no nystagmus Cognition: normal cognition Speech: speech normal Gait: normal gait Motor: muscle tone normal throughout and strength 5/5 throughout Sensory Exam: no sensory deficits noted Coordination: hvxysl-[id number]-mseg test normal, mpom-wu-tadz test normal, Romberg test normal, Does not sway with eyes open and rapid alternating movement UE normal Medical Decision Making <Sindhu Lee Mariel Maulik - Last Filed: 06/09/24 16:39> Imaging Data Radiologic Study: Radiologist's impression: Exam(s) XR CHEST 2V PA LATERAL EXAM: XR CHEST 2V PA LATERAL CLINICAL HISTORY: weakness TECHNIQUE: 2D digital imaging was performed of the chest. Two images were obtained. PA and lateral views were obtained. COMPARISON: CR XR CHEST 2V PA LATERAL from 06/13/2023 FINDINGS: MEDIASTINUM: Normal. HEART: Normal. PULMONARY VASCULATURE: Normal. LUNGS: There is stable pulmonary fibrosis. The findings are again most marked in the right lung base. No focal consolidating infiltrates are seen. PLEURAL SPACE: No pleural effusion or pneumothorax. BONE:Within normal limits for the patient's age. OTHER FINDINGS:Normal. IMPRESSION: No acute pulmonary findings. Quality:[facility] Health Related Social Needs: No Data to Display <Reddy Cannon NP - Last Filed: 06/09/24 23:57> Received signout from Sindhu GONZALEZ. Please see previous documentation for HPI exam review of systems and initial plan/emergent treatment interventions. patient complains of not taking his kidney transplant med for the past 4 days and not feeling well and having some difficulty walking. There is some level of confusion of onset of symptoms. Initial workup was unremarkable but PT was called in to assess patient for safe discharge home. Patient failed feet PT with right sided ataxia and weakness that was not noted on initial exam. Speaking with staffing branch manager staffing branch manager also stated that patient was able to get up spin around and stated they were feeling fine. Patient does have history of documented vascular dementia, kidney transplant, stated brain abnormality by family but unsure if it is a small lesion or aneurysm that was supposed to be followed up on. At time of signout patient states he wants to go AMA but I am concerned about this weakness so will order CT imaging and neuro consult. CT imaging reviewed along with radiology interpretation that shows no acute findings. Did speak with Dr. Delong with teleneuro who stated they also agree with potential of acute stroke. They recommended controlling blood pressure below 180s, giving aspirin and admission for MRI/MRA, and further workup. Discussed these findings with patient and potential severity of illness. Patient seem to then change his story does state that everything started this morning but at this time we are outside the window and given inability to do MRI MRA and with kidney transplant not able to do CTA head and given the potential of aneurysm stated by family we will hold off on any advanced imaging at our facility and plan to transfer to tertiary care center for further workup and treatment of CVA. Was able to speak to the [facility] [place] and they unfortunately stated that they could not admit the patient there given that they had no neurology MRI/MRA or ultrasound capacity over the weekend. Will reach out to [facility] given that he is a transplant patient there. Did give patient dose of metoprolol 2.5 mg to help with blood pressure. Blood pressure did decrease to 185/77 but pulse was low 60s so will monitor and hold as patient has had pressures in the 150s. 324 chewable aspirin was also given. Pending hearing from [facility] patient continued to be hypertensive above target but with bradycardia with heart rate 55-60. Will give 10 mg push of hydralazine and monitor Spoke with [facility] neurologist Dr. Haider who accepted the patient in transfer but stated that no beds were available at this time. Did discuss difficulty with blood pressure control along with use of nicardipine gtt if needed. Stepdown bed was placed and [facility] recommended to reach out for any change in neurological condition pending bed availability. Patient did become a little anxious so we will give small dose of Ativan to see if this helps calm patient down. Blood pressure continued to be difficult to control so nicardipine drip started and hospitalist called who accepted patient for admission pending tertiary care availability. [facility] <Sindhu Willingham - Last Filed: 06/09/24 16:39> All Active Problems Hypertension (Chronic) Acute CVA (cerebrovascular accident) (Acute) Iliac artery aneurysm, left (Acute) Pancreatic cyst (Acute ~02/2023) noted on CT abdomen pelvis; fullness of pancreatic head. Repeat MRI due in August 2023 Vascular dementia (Chronic ~03/2023) MRI of the brain consistent with small vessel ischemia; needs further neurologic assessment. 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 BARON S/P kidney transplant (Chronic ~04/2020) at [facility], post op wound dehiscence requiring repeat surgery Glomerulonephritis due to vasculitis (Chronic) Immunosuppressed status (Acute) Due to kidney transplant and P ANCA and MPO antibody, managed at [facility] with IVIG Marital conflict (Acute) Medical History Liver abscess due to bacteria (03/2023) Status post biopsy at [facility] via ERCP. Negative Gram stain performed while on antibiotics Hx of bacteremia (03/2023) Due to Klebsiella; treated with Levaquin and metronidazole for 4-week course History of posttraumatic stress disorder (PTSD) managed by [facility] Recurrent urinary tract infection h/o Klebsiella UTI Diverticulosis Skin lesion of face Closed fracture of patella (~1970) History of tobacco use quit in 1999 Goodpasture syndrome (03/09/16) 02/12. Renal failure. Pulmonary dysfunction. anti GBM nephropathy ANCA positive Colon polyp, hyperplastic 2005 Hyperlipidemia Pancreatitis Surgical History Wound dehiscence, internal operation (~04/2020) History of knee surgery Family History Mother , 83 Stroke Sister Breast cancer Brother Essential hypertension Heart disease Hyperlipidemia Maternal Grandfather Stroke Paternal Grandfather Personal history of malignant neoplasm LUNG Son Depression Daughter No problems noted. Father No problems noted. 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 Pets and animals: No Sexually active: No Do you think of yourself as: straight/heterosexual Current gender identity: male What is your relationship status?: How often do you talk on the phone with friends or family?: twice per week How often do you get together with friends or relatives?: twice per week How often do you attend restorationist or hoahaoism services?: decline to answer Do you belong to any clubs or organized social groups?: no Panel score (0-1 are the most socially isolated patients): 1 What type of physical activity do you participate in: other Duration: < 15 minutes/day Frequency: decline to answer Fiona/Yazidi: None Special fiona needs: No Seatbelt use: sometimes Drive intox or ride w/intox dedicated intermodal truck driver: No Do you feel safe at home: Yes Do you feel safe in your relationship?: Yes Additional Social history: lives alone
--- NOTE | 2024-06-09 12:30 | DI.RAD_ITS ---
Exam(s) XR CHEST 2V PA LATERAL EXAM: XR CHEST 2V PA LATERAL CLINICAL HISTORY: weakness TECHNIQUE: 2D digital imaging was performed of the chest. Two images were obtained. PA and lateral views were obtained. COMPARISON: CR XR CHEST 2V PA LATERAL from 06/13/2023 FINDINGS: MEDIASTINUM: Normal. HEART: Normal. PULMONARY VASCULATURE: Normal. LUNGS: There is stable pulmonary fibrosis. The findings are again most marked in the right lung base . No focal consolidating infiltrates are seen. PLEURAL SPACE: No pleural effusion or pneumothorax. BONE:Within normal limits for the patient's age. OTHER FINDINGS:Normal. IMPRESSION: No acute pulmonary findings. DATA REPOSITORY: RADIATION DOSE DELIVERED:
[2024-06-09 12:51] LABS: Abs Immature Grans 0.12 10^3/uL (0.0-0.06); Absolute Lymphocyte Count 1.18 10^3/uL (1.2-3.4); Basophils % 0.5 %; HCT 50.4 % (40.0-50.0); HGB 16.3 g/dL (13.5-17.5); Immature Grans % 0.9 %; Lymphocytes % 9.1 %; MCH 29.5 pg (27.0-33.0); MCHC 32.3 % (32.0-36.0); MCV 91 fL (80-95); Monocytes % 7.7 %; Neutrophils % 81.8 %; Platelet Count 171 10^3/uL (130-400); RBC 5.52 10^6/uL (4.36-5.78); RDW 13.4 % (11.8-14.1); RDW-SD 45.1 fL; WBC 12.97 10^3/uL (4.4-10.8)
[2024-06-09 12:54] LABS: Absolute Basophil Count 0.06 10^3/uL (0.0-0.2); Absolute Neutrophil Count 10.61 10^3/uL (1.2-6.7)
[2024-06-09 13:14] LABS: ALT 33 U/L (16-63); AST 18 U/L (15-37); Albumin 3.7 g/dL (3.4-5.0); Alkaline Phosphatase 114 U/L (46-116); Anion Gap 8.7 mmol/L (3-11); BUN 14 mg/dL (7-18); CO2 28.3 mmol/L (21.0-32.0); CREATININE 1.4 mg/dL (0.70-1.30); Calcium 9.9 mg/dL (8.5-10.1); Chloride 109 mmol/L (98-107); Estimated GFR 52.74 (mL/min/1.73m2); Glucose 155 mg/dL (74-106); Magnesium 1.6 mg/dL (1.8-2.4); Potassium 3.8 mmol/L (3.5-5.1); Sodium 146 mmol/L (136-145); TSH 3.34 uIU/mL (0.36-3.74); Total Protein 6.6 g/dL (6.4-8.2)
[2024-06-09] MEDS: Tacrolimus 0.5 MG CAP PO (13:51)
[2024-06-09 14:15] LABS: COVID-19 PCR Negative (Negative); Influenza A PCR Negative (Negative); Influenza B PCR Negative (Negative); RSV PCR Negative (Negative)
[2024-06-09] MEDS: Magnesium Chloride 64 MG TABCR PO (14:21)
[2024-06-09 15:00] LABS: Bilirubin Negative (Negative); Blood Negative (Negative); Clarity Clear (Clear); Glucose Negative (Negative); Ketones Negative (Negative); Leukocyte Esterase Negative (Negative); Nitrite Negative (Negative); Specific Gravity 1.025 (1.005-1.025); Urobilinogen 0.2 mg/dL (Up to 0.2)
[2024-06-09 15:08] LABS: Source Nasopharynx
[2024-06-09 15:21] LABS: Bacteria Rare HPF (Negative); C & S Indicated? No; Casts 0-2 Hyaline LPF (Negative); Crystals Negative HPF (Negative); Epithelial Cells Rare HPF (Negative); Mucus Trace (Negative); Other Cells Rare Transitional (Negative); RBC 0-2 HPF (0-2); WBC 0-2 HPF (0-5)
--- NOTE | 2024-06-09 16:00 | DI.CT_ITS ---
Exam(s) CT HEAD WO EXAM: CT HEAD WO CLINICAL HISTORY: dizziness. TECHNIQUE: Imaging Protocol: Axial computed tomography images with coronal and sagittal reformatted images were created and reviewed COMPARISON: CT HEAD WITHOUT CONTRAST from 01/14/[address] HEAD WO from 03/14/2023 FINDINGS: Ventricles and Extra axial spaces: Normal in size and morphology for the patient's age. Hemorrhage: None. Cerebral parenchyma: There are areas of decreased attenuation in the white matter most consistent wit h chronic microvascular ischemic disease. No acute territorial infarct or mass effect is present. Midline shift: None. Brainstem/Cerebellum: Normal. Calvarium: Normal. Visualized Paranasal sinuses/Mastoids: Clear. Soft Tissues: Unremarkable. IMPRESSION: No acute intracranial process. RADIATION DOSE DELIVERED: 806.78mGy.cm Total DLP DATA REPOSITORY: All CT scans at this facility are submitted to the National Radiology Data Registry (NRDR) Dose Index Registry (DIR) with the [employer] (ACR). RADIATION OPTIMIZATION: All CT scans at this facility use at least one of these dose optimization te chniques: automated exposure control; mA and/or kV adjustment per patient size (includes targeted exa ms where dose is matched to clinical indication); or iterative reconstruction.
--- NOTE | 2024-06-09 16:19 | PT.INIE ---
PT Notes Visit Reasons: Meds/not feeling well Physical Therapy Day Surgery Initial Evaluation Date: 06/09/2024 Referring Doctor: Sindhu Willingham PT Orders: PT CONSULT: [] Safety consult for discharge Precautions: Fall risk, telemetry, standard Patient Profile/Admitting Diagnosis: Patient is 73-year-old man who presented to the ED from home with reports of dizziness lightheadedness with diarrhea x 3 days. Patient reported difficulty walking as well. And weakness. Workup in the ED noted elevated BPs initially 211/88. Lab work completed MD consult to PT for safety assessment for discharge. After eval completed MD recommended head CT scan to further assess. 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 Unable to give details of home as he uses diversional conversation. Caregiver/friend reports patient able to care for himself including driving. Equipment Owned/DME: Multiple canes and FWW Subjective: Patient reports he was walking within his home over the past several days requiring support from furniture or 2 canes due to feelings of weakness and falling sensation. He notes he has not been eating well the last few days he lowered himself to his knees in front of his chair today and was able to get himself back up to the chair prior to coming to the hospital. He reports he has done this also in the grocery store and pulled himself up with a cart. Patient reports he has not had one of his meds recently. Objective: [] General Observation: Male seated at edge of bed with feet on floor telemetry in place and caregiver/friend present. Patient noted to be leaning to the right and slightly posteriorly able to correct initially with instruction to sit straight. Mental Status: Alert and oriented however tangential and uses diversion to not fully answer questions Pain: Patient reported sensation to right side of head denied it as pain although reports he has had it for a long time. ROM: [] Right Upper Extremity: Within normal limits passive range of motion Left Upper Extremity: Within normal limits Right Lower Extremity: Within normal limits except dorsiflexion to neutral Left Lower Extremity: Within normal limits except dorsiflexion to neutral Strength: Right Upper Extremity: Shoulder 3-/5 elbow 4/5 grasp strong Left Upper Extremity: 5/5 grasp strong Right Lower Extremity: Grossly 4/5 as compared to the left Left Lower Extremity: Grossly 5/5 Sensation: Patient with known peripheral neuropathy bilateral lower extremities with poor kinesthetic and proprioceptive awareness Coordination: Impaired rapid alternating movements with decreased accuracy of movement of right upper extremity And Right Foot during. Patient initially had difficulty completing task of clapping hands and slapping thighs as noted by double clapping raising arms up overhead to clap then slapping thighs. Bed Mobility/Transfers: Supine to sit independent Sit to stand standby assist x 2 trials then contact-guard assist x 2 trials with increased lean to the right Stand to sit standby assist x 2 trials then contact-guard/min assist x 2 trials with increased lean to the right Bed to chair standby assist initially Gait: Ambulated 10 feet with FWW on level surface including turn with noted increased leans to the right poor coordination ataxic movements of right lower extremity increase extension of bilateral upper extremities on FWW requiring moderate assistance to sustain upright position Balance: [] Static Sitting: Fair with noted lean to right and slightly posteriorly unable to sustain midline as assessment progressed Dynamic Sitting: Fair Static Standing: Fair minus Dynamic Standing: Poor Special Tests: 4 STAGE BALANCE TEST: Feet together 5 seconds loss of balance to right without spontaneous righting or equilibrium reactions 1/2 Stance unable Tandem stance unable Single leg stance left unable, right unable Mobility Limitations Standardized Measure [] [facility] 6 clicks Basic Mobility Inpatient Short Form: [] Raw Score: 16 CMS Score: 54.16% Informed Consent/Education: Patient instructed in purpose of PT consult. Assessment: Patient is a 73-year-old male presents with impaired motor coordination right upper extremity right lower extremity, impaired equilibrium/righting reactions in sitting and standing, impaired proprioception/spatial awareness. These deficits are contributing to the following functional limitations: 1. Inability to safely ambulate without assistive device and assistance 2. Increase completion time for mobility ADL performance 3. Increased fall risk 4. Impaired ability to perform stairs safely without assistance Patient became agitated at end of session when therapist recommended further assessment due to inability to sustain upright standing without loss of balance to the right. MD notified of increased agitation patient vocalizing he will leave on his own. Patient voiced that this therapist was pulling him over causing him to lean to the right. Patient's baseline level of dementia may be contributing to agitation at end of session. Session ended due to increased agitation without some of his prior level of function and home setting established. Findings discussed with MD who decided to order head CT. Patient is assessed as a high complexity based on the following: History: 73-year-old male with impairment level findings, functional limitations, and past medical history as indicated above Examination: Demonstrable impairment in strength, balance, and mobility level with underlying impairments and functional limitations as documented above Presentation: Unstable/evolving Decision Making: High Goals: 1. Supervised transfers with least restrictive device 2. Supervised ambulation with least restrictive device greater than 150 feet on level surfaces without loss of balance or reports of increased pain 3. Sustained machine splitter midline with upper extremity support supervision x 5 minutes to allow for ADL/self-care tasks Plan of Care/Treatment Plan: If patient admitted to the hospital would benefit from the followin-2x/day, 7 days/week x 1 week. Plan of care has been reviewed with the GEOSPATIAL APPLICATIONS DEVELOPER providing the service under Physical Therapy direction. Initiate Physical Therapy intervention for strengthening, bed mobility, transfers, gait, stairs, balance training, use of assistive device. DISCHARGE RECOMMENDATIONS: Further medical workup and physical therapy prior to discharge to home safely TREATMENT CODE/TIME: 57480 x [phone] Thank you for the opportunity to participate in the care of this patient. Abbie Mohr, PT [facility]
[2024-06-09] MEDS: Aspirin 81 MG CHEW 324 MG CH (19:25)
[2024-06-09] MEDS: Metoprolol 5 MG/5 ML VIAL 2.5 MG IVP (19:25)
[2024-06-09] MEDS: hydrALAZINE 20 MG/ML VIAL 10 MG IVP (21:29)
[2024-06-09] MEDS: LORazepam 0.5 MG TAB PO (23:20)
[2024-06-10] VITALS (115 sets, daily range): BP systolic 110–224; BP diastolic 58–140; PULSE 64–121; RESP 11–30; TEMP 35.6–36.4; O2SAT 88–96
--- NOTE | 2024-06-10 | W.PM.HP.N ---
Date of service: 06/09/24 Time of Service: 11:50 Assessment and Plan Assessment and plan (1) Acute CVA (cerebrovascular accident): Status: Acute Assessment and plan: New subtle right sided weakness and ataxia with clear consistent listing to right side. CT negative but I agree with concern of physical therapy and teleneuro of a new stroke. History is unclear due to poor baseline memory, unclear onset. MRI/MRA recommended. Due to renal transplant status arrangement was made for transfer to [facility], bed pending. Will admit here until this is available. Given aspirin, continue 81mg daily. Check lipids and increase statin to high intensity for now (2) Hypertensive emergency: Status: Acute Assessment and plan: BP >220 in setting of acute stroke symptoms. Not able to control in the ED with pushes of IV medication, now on nicardipine drip, will be ICU status Goal is permissive hypertension with BP 160-180 (3) DM II (diabetes mellitus, type II), controlled: Status: Acute Assessment and plan: At reasonable level of control with A1c 7.3% in March. Can continue metformin as he hasn't had contrast, no plans for procedure (4) S/P kidney transplant: Status: Chronic Assessment and plan: Renal function at recent baseline GFR. Urine output is good. Continue home anti-rejection medicaitons, monitor renal function. (5) ANCA-positive vasculitis: Status: Acute Assessment and plan: In remission, continue immune modulators including prednisone (6) DVT prophylaxis: Status: Acute Assessment and plan: enoxaparin (7) Lower urinary tract symptoms (LUTS): Status: Acute Assessment and plan: chornic, continue tamsulosin (8) Hypomagnesemia: Status: Acute Assessment and plan: replaced orally, will add IV 1g and follow in AM (9) Polycythemia: Status: Acute Assessment and plan: borderline, but in setting of CVA this shouldn't be ignored. Remote smoking. COPD noted in [facility] records but not on any therapy. Follow. (10) Discharge planning issues: Status: Acute Assessment and plan: Accepted pending bed at [facility] for neurology. See ED notes. History of Present Illness History of Present Illness Chief Complaint: weakness Narrative: 73 yo M with history of renal transplant, goodpastures vasculitis in remission, controlled type 2 DM, vascular dementia, and HTN who presented early in the day with lightheadedness and feeling tremulous. He was having some intermittent headache and decreased energy, but did not report focal weakness, ataxia, nausea/vomiting, chest pain, fever, urine changes or other focal symptoms. He had been without his tacrol[facility] for 5 days due [facility] He went to [facility], where they called his transplant team and together they recommended ED evaluation. He appears to have been walking stably at [facility], and when he got to the ED the initial neurologic exam was normal, but when he was evaluated by physical therapy they noted ataxia with tilting to the right. At that point teleneurology was consulted for stroke evaluation. When I interviewed him, he was quite talkative and wondering about recovery and talking about his family, but was not able to give a linear history of his symptoms. He does say he feels like he should be able to walk but he can't. Review of Systems All systems reviewed & are unremarkable except as noted in HPI and below Constitutional Constitutional: Denies chills, Denies fever(s), Denies poor appetite, Denies weight gain and Denies weight loss Comments: no headache now Eyes Eyes: Denies loss of vision ENT Ears, Nose, Mouth, and Throat: Denies vertigo Gastrointestinal Comments: diarrhea noted in initiall ED note but he denies this to me. None noted in nursing. Genitourinary Comments: good urine output. Has a slow stream with is chronic Musculoskeletal Musculoskeletal: Reports numbness (chronic in feet from agent orange) Neurologic Neurologic: Denies abnormal speech, Denies vertigo, Denies loss of vision, Reports numbness (chronic in feet from agent orange) and Denies convulsions Psychiatric Psychiatric: Denies mood swings PFSH All Active Problems Polycythemia (Acute) Hypomagnesemia (Acute) Lower urinary tract symptoms (LUTS) (Acute) Discharge planning issues (Acute) DVT prophylaxis (Acute) Hypertensive emergency (Acute) Hypertension (Chronic) Acute CVA (cerebrovascular accident) (Acute) Iliac artery aneurysm, left (Acute) Pancreatic cyst (Acute ~02/2023) noted on CT abdomen pelvis; fullness of pancreatic head. Repeat MRI due in August 2023 Vascular dementia (Chronic ~03/2023) MRI of the brain consistent with small vessel ischemia; needs further neurologic assessment. 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 BARON Non-alcoholic fatty liver disease (Acute) Hyperlipidemia (Acute) Essential hypertension (Acute 05/01/13) ANCA-positive vasculitis (Acute 03/09/16) Medical History Liver abscess due to bacteria (03/2023) Status post biopsy at [facility] via ERCP. Negative Gram stain performed while on antibiotics Hx of bacteremia (03/2023) Due to Klebsiella; treated with Levaquin and metronidazole for 4-week course History of posttraumatic stress disorder (PTSD) managed by [facility] Recurrent urinary tract infection h/o Klebsiella UTI Diverticulosis Skin lesion of face Closed fracture of patella (~1970) History of tobacco use quit in 1999 Goodpasture syndrome (03/09/16) 02/12. Renal failure. Pulmonary dysfunction. anti GBM nephropathy ANCA positive Colon polyp, hyperplastic 2005 Hyperlipidemia Pancreatitis Surgical History Wound dehiscence, internal operation (~04/2020) History of knee surgery Family History Mother , 83 Stroke Sister Breast cancer Brother Essential hypertension Heart disease Hyperlipidemia Maternal Grandfather Stroke Paternal Grandfather Personal history of malignant neoplasm LUNG Son Depression Daughter No problems noted. Father No problems noted. 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 Pets and animals: No Sexually active: No Do you think of yourself as: straight/heterosexual Current gender identity: male What is your relationship status?: How often do you talk on the phone with friends or family?: twice per week How often do you get together with friends or relatives?: twice per week How often do you attend gnosticism or alevism services?: decline to answer Do you belong to any clubs or organized social groups?: no Panel score (0-1 are the most socially isolated patients): 1 What type of physical activity do you participate in: other Duration: < 15 minutes/day Frequency: decline to answer Fiona/Anabaptism: None Special fiona needs: No Seatbelt use: sometimes Drive intox or ride w/intox tank truck driver: No Do you feel safe at home: Yes Do you feel safe in your relationship?: Yes Additional Social history: lives alone Meds Allergies and Home Medications Allergies Allergy/AdvReac Type Severity Reaction Status Date / Time Penicillins Allergy Severe CARDIAC Unverified 06/09/24 12:28 ARREST ibuprofen AdvReac Intermediate its hard Verified 06/09/24 12:28 on my kidneys lisinopril AdvReac Intermediate cough Unverified 06/09/24 12:28 Home Medications ?Medication ?Instructions ?Recorded ?Confirmed ?Type atorvastatin 20 mg tablet (Lipitor) 20 mg PO DAILY 02/13/21 06/09/24 History famotidine 20 mg tablet (Pepcid) 20 mg PO DAILY 02/13/21 06/09/24 History potassium phosphate, monobasic 500 1,000 mg PO BID 02/13/21 06/09/24 History mg soluble tablet ergocalciferol (vitamin D2) 1,250 1,250 mcg PO QWEEK 11/24/22 06/09/24 History mcg (50,000 unit) capsule diltiazem HCl 120 mg capsule,24 120 mg PO DAILY #90 caps 05/13/23 06/09/24 Rx hr,extended release mycophenolate sodium 180 mg 180 mg PO DAILY #90 tabs 08/24/23 06/09/24 Rx tablet,delayed release metformin 500 mg tablet 500 mg PO DAILY 02/29/24 06/09/24 History hydrocortisone 1 % topical cream 1 applic topical BID PRN 04/10/24 06/09/24 History ketoconazole 2 % shampoo 1 applic topical .2 times weekly 04/10/24 06/09/24 History losartan 100 mg tablet 100 mg PO DAILY 04/10/24 06/09/24 History magnesium oxide 400 mg PO BID 04/10/24 06/09/24 History methenamine hippurate 1 gram tablet 1 g PO BID 04/10/24 06/09/24 History metoprolol succinate 50 mg 50 mg PO DAILY 04/10/24 06/09/24 History tablet,extended release 24 hr prednisone 5 mg tablet 5 mg PO DAILY 04/10/24 06/09/24 History tamsulosin 0.4 mg capsule 0.8 mg PO DAILY 04/10/24 06/09/24 History tacrolimus 0.5 mg capsule, 0.5 mg PO Q12H #12 caps 06/07/24 06/09/24 Rx immediate-release Exam Narrative Exam Narrative: GEN: Alert and oriented x 3, pleasant, friendly, and cooperative, gives tangential and limited history. No acute distress at rest. HEENT: Head atraumatic. Conjunctiva clear, no icterus. PEERL, EOMI. no rhinorrhea. MMM, OP benign. Neck is supple with no masses or lymphadenopathy, trachea midline LUNGS: CTAB with normal effort CV: RRR with 2/6 murmur loudest at apex, no gallops, or rubs. ABD: active bowel sounds, soft, nontender and nondistended. No masses. EXT: no cyanosis, clubbing, or edema. No CVAT MSK: No joint redness or swelling NEURO: CN 2-12 intact. Lists consistently to the right when he tries to sit up, stands with bracing so he doesn't fall to right. No pronator drift. FNF a little slower on right than left. ELTON and HTS normal rhonda. Strength slightly greater on left than right with grasp (states he is ambidextrous, writes with right but was always better arm wrestler on left). I couldn't appreciate assymetry in legs. DTRs symmetric, though more difficult to iliicit right patella. Normal speech. No tremor. Sensation deminished but still present in rhonda feet (chronic). SKIN: No rashes or open wounds. PSYCH: normal mood and affect Results Imaging Chest x-ray: report reviewed (No acute pulmonary findings) and image reviewed EKG: report reviewed and image reviewed (sinus luz elena 58 bpm, RBBB (not new, seen 03/13/23)) Imaging Studies: head CT w/o: No acute intracranial process Labs 06/09/24 12:41 06/09/24 12:41 Labs: Laboratory Results - last 24 hr 06/09/24 06/09/24 06/09/24 12:41 13:21 14:25 WBC 12.97 H RBC 5.52 Hgb 16.3 Hct 50.4 H MCV 91 MCH 29.5 MCHC 32.3 RDW 13.4 Plt Count 171 MPV 10.0 Immature Gran % 0.9 Neutrophils % 81.8 Lymphocytes % 9.1 Monocytes % 7.7 Eosinophils % 0.0 Basophils % 0.5 Nucleated RBC % 0.0 Absolute Neutrophils 10.61 H Absolute Lymphocytes 1.18 L Absolute Monocytes 1.00 H Absolute Eosinophils 0.00 Absolute Basophils 0.06 Sodium 146 H Potassium 3.8 Chloride 109 H Carbon Dioxide 28.3 Anion Gap 8.7 BUN 14 Creatinine 1.4 H Est GFR (CKD-EPI 2020) 52.74 Glucose 155 H Calcium 9.9 Magnesium 1.6 L Total Bilirubin 0.70 AST 18 ALT 33 Alkaline Phosphatase 114 Total Protein 6.6 Albumin 3.7 TSH 3.34 Urine Color Yellow Urine Clarity Clear Urine pH 6.0 Ur Specific [place] 1.025 Urine Protein 100 H Urine Ketones Negative Urine Blood Negative Urine Nitrite Negative Urine Bilirubin Negative Urine Urobilinogen 0.2 Ur Leukocyte Esterase Negative Urine RBC 0-2 Urine WBC 0-2 Ur Epithelial Cells Rare Urine Crystals Negative Urine Bacteria Rare Urine Casts 0-2 Hyaline Urine Mucus Trace Urine Other Rare Transitional Ur Culture Indicated? No Urine Glucose Negative COVID-19 Source Nasopharynx SARS-CoV-2 (PCR) Negative Influenza Type A (PCR) Negative Influenza Type B (PCR) Negative RSV (PCR) Negative Last Vital Signs Temp 36.4 C 06/09/24 12:21 Pulse 52 L 06/09/24 21:57 Resp 16 06/09/24 20:38 BP 187/78 H 06/09/24 20:38 Pulse Ox 96 06/09/24 20:38 Time Spent Time spent with Patient: >75 minutes Time was spent: preparing to see the patient(eg.review tests), obtaining and/or reviewing separately otained hiistory, ordering medications,tests, procedures, referring, communicating with other health career technical counselor, indepentently interpreting results, counseling the patient and care coordination
--- NOTE | 2024-06-10 01:21 | W.PCEDHO ---
Registration Status: Primary Language: Preferred Language: ED Information & Data Chief Complaint Dizzy/Sync 06/09/24 14:55 Chief Complaint Dizzy/Sync 06/09/24 12:21 Triage Note trouble ambulating this AM, 06/09/24 12:21 SOB, lightheaded, dizzy, appears pale, have not taken anti-rejection medications for 4 days, Hx Kidney transplant 2018 Medical / Surgical History (Last Reviewed 09/21/23 @ 22:28 by Eli Herring MD) Liver abscess due to bacteria (03/2023) Hx of bacteremia (03/2023) History of posttraumatic stress disorder (PTSD) Recurrent urinary tract infection Diverticulosis Skin lesion of face Closed fracture of patella (~1970) History of tobacco use Goodpasture syndrome (03/09/16) Colon polyp, hyperplastic Hyperlipidemia Pancreatitis (Last Reviewed 09/21/23 @ 22:28 by Eli Herring MD) Wound dehiscence, internal operation (~04/2020) History of knee surgery Most Recent Vital Signs Temperature 36.4 C 06/09/24 12:21 Temperature Source Temporal Artery Scan 06/09/24 12:21 Pulse 84 06/10/24 00:31 Pulse Rhythm Regular 06/09/24 20:38 Pulse Strength Normal 06/09/24 20:38 Respiratory Rate 16 06/09/24 20:38 Respiratory Effort Normal, Non-Labored 06/09/24 20:38 Respiratory Depth Normal 06/09/24 20:38 Respiratory Pattern Normal 06/09/24 12:33 Blood Pressure 182/79 H 06/10/24 00:31 Blood Pressure Mean 110 06/10/24 00:31 Blood Pressure Position Supine 06/10/24 00:10 Pulse Oximetry 94 06/10/24 00:31 Oxygen Delivery Method Room Air 06/09/24 20:38 Oxygen Flow Rate 0 06/09/24 20:38 Pain Level 0 06/09/24 20:38 Allergies Penicillins Allergy (Severe, Unverified 06/09/24 12:28) CARDIAC ARREST ibuprofen Adverse Reaction (Intermediate, Verified 06/09/24 12:28) its hard on my kidneys lisinopril Adverse Reaction (Intermediate, Unverified 06/09/24 12:28) cough Precautions Isolation Standard precaution 06/09/24 14:55 Active Medications Generic Name Dose Route Start Last Admin Trade Name Freq PRN Reason Stop Dose Admin Nicardipine HCl 25 mg/ 250 mls @ 25 mls/hr 06/09/24 23:52 06/10/24 00:12 Dextrose/Water IV 06/10/24 09:51 2.5 mg/hr INFUSION STA 25 mls/hr Administration Protocol 2.5 MG/HR IV IV Catheter Type [Right Saline Lock Antecubital] IV Catheter Gauge [Right 18 Antecubital] Diagnostics 06/09/24 06/09/24 06/09/24 Range/Units 14:25 13:21 12:41 WBC 12.97 H (4.4-10.8) 10^3/uL RBC 5.52 (4.36-5.78) 10^6/uL Hgb 16.3 (13.5-17.5) g/dL Hct 50.4 H (40.0-50.0) % MCV 91 (80-95) fL MCH 29.5 (27.0-33.0) pg MCHC 32.3 (32.0-36.0) % RDW 13.4 (11.8-14.1) % Plt Count 171 (130-400) 10^3/uL MPV 10.0 (8.0-11.0) fL Immature Gran % 0.9 % Neutrophils % 81.8 % Lymphocytes % 9.1 % Monocytes % 7.7 % Eosinophils % 0.0 % Basophils % 0.5 % Nucleated RBC % 0.0 (0.0-0.3) % Absolute Neutrophils 10.61 H (1.2-6.7) 10^3/uL Absolute Lymphocytes 1.18 L (1.2-3.4) 10^3/uL Absolute Monocytes 1.00 H (0.1-0.8) 10^3/uL Absolute Eosinophils 0.00 (0.0-0.7) 10^3/uL Absolute Basophils 0.06 (0.0-0.2) 10^3/uL Sodium 146 H (136-145) mmol/L Potassium 3.8 (3.5-5.1) mmol/L Chloride 109 H (98-107) mmol/L Carbon Dioxide 28.3 (21.0-32.0) mmol/L Anion Gap 8.7 (3-11) mmol/L BUN 14 (7-18) mg/dL Creatinine 1.4 H (0.70-1.30) mg/dL Est GFR (CKD-EPI 2020) 52.74 (mL/min/1.73m2) Glucose 155 H (74-106) mg/dL Calcium 9.9 (8.5-10.1) mg/dL Magnesium 1.6 L (1.8-2.4) mg/dL Total Bilirubin 0.70 (0.2-1.0) mg/dL AST 18 (15-37) U/L ALT 33 (16-63) U/L Alkaline Phosphatase 114 (46-116) U/L Total Protein 6.6 (6.4-8.2) g/dL Albumin 3.7 (3.4-5.0) g/dL TSH 3.34 (0.36-3.74) uIU/mL Urine Color Yellow (Yellow) Urine Clarity Clear (Clear) Urine pH 6.0 (5-8) Ur Specific [place] 1.025 (1.005-1.025) Urine Protein 100 H (Neg-Trace) mg/dL Urine Ketones Negative (Negative) mg/dL Urine Blood Negative (Negative) Urine Nitrite Negative (Negative) Urine Bilirubin Negative (Negative) Urine Urobilinogen 0.2 (Up to 0.2) mg/dL Ur Leukocyte Esterase Negative (Negative) Urine RBC 0-2 (0-2) HPF Urine WBC 0-2 (0-5) HPF Ur Epithelial Cells Rare (Negative) HPF Urine Crystals Negative (Negative) HPF Urine Bacteria Rare (Negative) HPF Urine Casts 0-2 Hyaline (Negative) LPF Urine Mucus Trace (Negative) Urine Other Rare Transitional (Negative) Ur Culture Indicated? No Urine Glucose Negative (Negative) mg/dL COVID-19 Source Nasopharynx SARS-CoV-2 (PCR) Negative (Negative) Influenza Type A (PCR) Negative (Negative) Influenza Type B (PCR) Negative (Negative) RSV (PCR) Negative (Negative) [id number] Documentation Fingerstick Glucose Start: 06/09/24 16:14 Freq: .Stat Status: Active Protocol: Activity Type Activity Date Activity User E-sign Co-sign Detail Recorded Client Recorded Date Recorded By Document 06/09/24 16:41 BKG DAEMON(3) [id number] 06/09/24 16:42 BKG DAEMON(4) Intake and Output - 24 Hour Total 06/09/24 12:18 thru 06/09/24 12:21 Weight 87.997 kg Falls Risk Assessment History of Falls Previous History 06/09/24 14:55 Contributing Factors Impairments 06/09/24 14:55 Fall Total Score 18 06/09/24 14:55 Level of Risk Standard/Low Risk 06/09/24 14:55 Problems (Last Reviewed 09/21/23 @ 22:28 by Eli Herring MD) Hypertensive emergency (Acute) Acute CVA (cerebrovascular accident) (Acute) DM II (diabetes mellitus, type II), controlled (Acute) v v v v v v v v v Sending and/or Receiving Nurses: Please use comment section below to note any information pertinent to the patient hand-off not included above. Information / Comments: Report received from: Jahaira Begum RN 06/10/24 0115 no questions
[2024-06-10] MEDS: MAGNESIUM SULFATE 1 GM/100 ML BAG IV_INF (03:47)
[2024-06-10] MEDS: Tacrolimus 0.5 MG CAP PO ×2 (03:47→08:10)
[2024-06-10] MEDS: Normal Saline Flush 10 ML SYR IVP ×2 (05:05→08:31)
[2024-06-10 06:44] LABS: Absolute Eosinophil Count 0.01 10^3/uL (0.0-0.7); Absolute Lymphocyte Count 1.35 10^3/uL (1.2-3.4); Absolute Monocyte Count 1.32 10^3/uL (0.1-0.8); Basophils % 0.4 %; Eosinophils % 0.1 %; HCT 48.2 % (40.0-50.0); HGB 15.8 g/dL (13.5-17.5); Immature Grans % 0.7 %; Lymphocytes % 9.9 %; MCH 29.3 pg (27.0-33.0); MCHC 32.8 % (32.0-36.0); MCV 89 fL (80-95); MPV 10.4 fL (8.0-11.0); Monocytes % 9.7 %; Neutrophils % 79.2 %; Platelet Count 176 10^3/uL (130-400); RDW 13.4 % (11.8-14.1); RDW-SD 43.4 fL; WBC 13.59 10^3/uL (4.4-10.8)
[2024-06-10 06:45] LABS: Absolute Basophil Count 0.05 10^3/uL (0.0-0.2); Absolute Neutrophil Count 10.76 10^3/uL (1.2-6.7)
[2024-06-10 07:08] LABS: Anion Gap 11.1 mmol/L (3-11); BUN 15 mg/dL (7-18); CO2 24.9 mmol/L (21.0-32.0); CREATININE 1.1 mg/dL (0.70-1.30); Calcium 9.5 mg/dL (8.5-10.1); Chloride 109 mmol/L (98-107); Estimated GFR 70.44 (mL/min/1.73m2); Glucose 131 mg/dL (74-106); Magnesium 1.9 mg/dL (1.8-2.4); Potassium 3.2 mmol/L (3.5-5.1); Sodium 145 mmol/L (136-145)
[2024-06-10 07:30] LABS: Calculated LDL 84 mg/dL (<100); Cholesterol 154 mg/dL (<200); HDL Cholesterol 51 mg/dL (40-60); Triglyceride 96 mg/dL (<150)
[2024-06-10] MEDS: predniSONE 5 MG TAB PO (08:29)
[2024-06-10] MEDS: Losartan 50 MG TAB 100 MG PO (08:30)
[2024-06-10] MEDS: Magnesium Oxide 400 MG TAB PO (08:30)
[2024-06-10] MEDS: Famotidine 20 MG TAB PO (08:30)
[2024-06-10] MEDS: Tamsulosin 0.4 MG CAPCR 0.8 MG PO (08:30)
[2024-06-10] MEDS: metFORMIN 500 MG TAB PO (08:30)
[2024-06-10] MEDS: Aspirin 81 MG CHEW PO (08:30)
--- NOTE | 2024-06-10 08:38 | W.PM.PROGNOT ---
Date of Service Date of service: 06/10/24 Time of Service: 08:38 Assessment and Plan Assessment and plan (1) Acute CVA (cerebrovascular accident): Status: Acute Assessment and plan: New subtle right sided weakness and ataxia with clear consistent listing to right side. CT negative but I agree with concern of physical therapy and teleneuro of a new stroke. History is unclear due to poor baseline memory, unclear onset. MRI/MRA recommended. Due to renal transplant status arrangement was made for transfer to [facility], bed pending. Will admit here until this is available. Given aspirin, continue 81mg daily. Check lipids and increase statin to high intensity for now 06.10.24 Awaiting transfer to [facility] where a cva workup will be completed including mri/echo/possible carotid artery usn (2) Hypertensive emergency: Status: Acute Assessment and plan: BP >220 in setting of acute stroke symptoms. Not able to control in the ED with pushes of IV medication, now on nicardipine drip, will be ICU status Goal is permissive hypertension with BP 160-180 06.10.24 Pt is off the cardizem drip and will allow permissive htn over the next 1-2 days (3) DM II (diabetes mellitus, type II), controlled: Status: Acute Assessment and plan: At reasonable level of control with A1c 7.3% in March. Can continue metformin as he hasn't had contrast, no plans for procedure (4) S/P kidney transplant: Status: Chronic Assessment and plan: Renal function at recent baseline GFR. Urine output is good. Continue home anti-rejection medicaitons, monitor renal function. (5) ANCA-positive vasculitis: Status: Acute Assessment and plan: In remission, continue immune modulators including prednisone (6) DVT prophylaxis: Status: Acute Assessment and plan: enoxaparin (7) Lower urinary tract symptoms (LUTS): Status: Acute Assessment and plan: chornic, continue tamsulosin (8) Hypomagnesemia: Status: Acute Assessment and plan: replaced orally, will add IV 1g and follow in AM (9) Polycythemia: Status: Acute Assessment and plan: borderline, but in setting of CVA this shouldn't be ignored. Remote smoking. COPD noted in records but not on any therapy. Follow. (10) Discharge planning issues: Status: Acute Assessment and plan: Accepted pending bed at [facility] for neurology. See ED notes. (11) Hypokalemia: Status: Acute Assessment and plan: replace (12) Confused but orients easily: Status: Acute Assessment and plan: will check a b12 and folate for completeness Subjective Subjective Interval history since last seen: Pt seen and examined in his room. Pt talking on the phone with a clear speech pattern. Pt is aware of the plan to transfer to [facility]. POC d/w bedside nurse during ICU huddle. Exam Narrative Exam Narrative: HEENT: NCAT EOMI NECK: NO JVD Resp: speaking in complete sentences, no AMU Neuro: non focal while lying in bed Con: 73 y/o who appears his stated age, no distress Objective Last Vital Signs Temp 35.6 C L 06/10/24 01:57 Pulse 71 06/10/24 07:31 Resp 17 06/10/24 07:31 BP 155/85 H 06/10/24 07:31 Pulse Ox 93 06/10/24 07:31 Laboratory Results - last 24 hr 06/09/24 06/09/24 06/09/24 12:41 13:21 14:25 WBC 12.97 H RBC 5.52 Hgb 16.3 Hct 50.4 H MCV 91 MCH 29.5 MCHC 32.3 RDW 13.4 Plt Count 171 MPV 10.0 Immature Gran % 0.9 Neutrophils % 81.8 Lymphocytes % 9.1 Monocytes % 7.7 Eosinophils % 0.0 Basophils % 0.5 Nucleated RBC % 0.0 Absolute Neutrophils 10.61 H Absolute Lymphocytes 1.18 L Absolute Monocytes 1.00 H Absolute Eosinophils 0.00 Absolute Basophils 0.06 Sodium 146 H Potassium 3.8 Chloride 109 H Carbon Dioxide 28.3 Anion Gap 8.7 BUN 14 Creatinine 1.4 H Est GFR (CKD-EPI 2020) 52.74 Glucose 155 H Calcium 9.9 Magnesium 1.6 L Total Bilirubin 0.70 AST 18 ALT 33 Alkaline Phosphatase 114 Total Protein 6.6 Albumin 3.7 Triglycerides Total Cholesterol LDL Cholesterol, Calc HDL Cholesterol TSH 3.34 Urine Color Yellow Urine Clarity Clear Urine pH 6.0 Ur Specific [place] 1.025 Urine Protein 100 H Urine Ketones Negative Urine Blood Negative Urine Nitrite Negative Urine Bilirubin Negative Urine Urobilinogen 0.2 Ur Leukocyte Esterase Negative Urine RBC 0-2 Urine WBC 0-2 Ur Epithelial Cells Rare Urine Crystals Negative Urine Bacteria Rare Urine Casts 0-2 Hyaline Urine Mucus Trace Urine Other Rare Transitional Ur Culture Indicated? No Urine Glucose Negative COVID-19 Source Nasopharynx SARS-CoV-2 (PCR) Negative Influenza Type A (PCR) Negative Influenza Type B (PCR) Negative RSV (PCR) Negative 06/10/24 05:39 WBC 13.59 H RBC 5.40 Hgb 15.8 Hct 48.2 MCV 89 MCH 29.3 MCHC 32.8 RDW 13.4 Plt Count 176 MPV 10.4 Immature Gran % 0.7 Neutrophils % 79.2 Lymphocytes % 9.9 Monocytes % 9.7 Eosinophils % 0.1 Basophils % 0.4 Nucleated RBC % 0.0 Absolute Neutrophils 10.76 H Absolute Lymphocytes 1.35 Absolute Monocytes 1.32 H Absolute Eosinophils 0.01 Absolute Basophils 0.05 Sodium 145 Potassium 3.2 L Chloride 109 H Carbon Dioxide 24.9 Anion Gap 11.1 H BUN 15 Creatinine 1.1 Est GFR (CKD-EPI 2020) 70.44 Glucose 131 H Calcium 9.5 Magnesium 1.9 Total Bilirubin AST ALT Alkaline Phosphatase Total Protein Albumin Triglycerides 96 Total Cholesterol 154 LDL Cholesterol, Calc 84 HDL Cholesterol 51 TSH Urine Color Urine Clarity Urine pH Ur Specific [place] Urine Protein Urine Ketones Urine Blood Urine Nitrite Urine Bilirubin Urine Urobilinogen Ur Leukocyte Esterase Urine RBC Urine WBC Ur Epithelial Cells Urine Crystals Urine Bacteria Urine Casts Urine Mucus Urine Other Ur Culture Indicated? Urine Glucose COVID-19 Source SARS-CoV-2 (PCR) Influenza Type A (PCR) Influenza Type B (PCR) RSV (PCR) Time Spent with Patient Time Spent with Patient: 25-34 minutes Time was spent: preparing to see the patient(eg.review tests), obtaining and/or reviewing separately otained hiistory, ordering medications,tests, procedures, referring, communicating with other health manager progressive care, indepentently interpreting results, counseling the patient and care coordination
[2024-06-10] MEDS: Enoxaparin 40 MG/0.4 ML SYR SC (09:00)
[2024-06-10] MEDS: Metoprolol CR 50 MG TABCR PO (09:26)
[2024-06-10] MEDS: dilTIAZem CD 120 MG CAPCR PO (09:26)
--- NOTE | 2024-06-10 10:04 | INITIAL_ITS ---
Date of service: 06/10/24 Time of Service: 10:04 Care Management Initial Assmt Initial Assessment Reason for Hospitalization: CVA Functional Status/Living Situation Patient Presentation: Requires acute transfer to [facility]. Information is obtained by chart review. Unsure of marital status. 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) and Other ([employer] connected) Instrumental Activities of Daily Living (ADLs): Independent Medications Medication Management: No Issues/Barriers identified Physical Functioning/Mobility Assistive Device: Cane Walker Advance Directives Advance Directives: Do you have an Advance Directive: N 10/30/13 08:55 AD On File at [facility]: N 10/30/13 08:55 Date Asked 06/09/24 06/09/24 12:25 AD Date Reviewed COLST On File at [facility] COLST Date Scanned Code Status Resuscitation Status DNR Insurance Coverage/Financial Issues Insurance: Medicare [place] Financial Issues: None identified Care Team Visit Care Team Role Provider Type Shannan Stevens MD Primary Care Provider [facility] STAFF PHYSICIAN InPatient Thompson Garcia Other Providers OTHER Reddy Cannon NP Emergency Provider NURSE PRACTITIONER Ruy Hernández Admit Provider [facility] STAFF PHYSICIAN Attending Provider Discharge Anticipated Barriers to Discharge: Medical Status Patient/Family Education Needs: Review discharge instructions, discuss Ask Me Three Transportation: EMS Plan: Needs to transfer to a tertiary facility and is accepted at [facility]. EMS is being arranged by [facility]. Social Determinants of Health Screening Will the Patient Participate in the Screening?: Declined to provide PFSH All Active Problems Confused but orients easily (Acute) Hypokalemia (Acute) Polycythemia (Acute) Hypomagnesemia (Acute) Lower urinary tract symptoms (LUTS) (Acute) Discharge planning issues (Acute) DVT prophylaxis (Acute) Hypertensive emergency (Acute) Hypertension (Chronic) Acute CVA (cerebrovascular accident) (Acute) Iliac artery aneurysm, left (Acute) Pancreatic cyst (Acute ~02/2023) noted on CT abdomen pelvis; fullness of pancreatic head. Repeat MRI due in August 2023 Vascular dementia (Chronic ~03/2023) MRI of the brain consistent with small vessel ischemia; needs further neurologic assessment. DM II (diabetes mellitus, type II), controlled (Acute) managed with low dose metformin Exposure to potentially hazardous substance (Chronic) Agent [place] ANCA-positive vasculitis (Acute 03/09/16) Essential hypertension (Acute 05/01/13) Hyperlipidemia (Acute) Non-alcoholic fatty liver disease (Acute) Tubular adenoma (Acute) 06/30/15; DR. 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 Negative Gram stain performed while on antibiotics Hx of bacteremia (03/2023) Due to Klebsiella; treated with Levaquin and metronidazole for 4-week course History of posttraumatic stress disorder (PTSD) managed by [facility] Recurrent urinary tract infection h/o Klebsiella UTI Diverticulosis Skin lesion of face Closed fracture of patella (~1970) History of tobacco use quit in 1999 Goodpasture syndrome (03/09/16) 02/12. Renal failure. Pulmonary dysfunction. anti GBM nephropathy ANCA positive Colon polyp, hyperplastic 2005 Hyperlipidemia Pancreatitis Surgical History Wound dehiscence, internal operation (~04/2020) History of knee surgery Family History Mother , 83 Stroke Sister Breast cancer Brother Essential hypertension Heart disease Hyperlipidemia Maternal Grandfather Stroke Paternal Grandfather Personal history of malignant neoplasm LUNG Son Depression Daughter No problems noted. Father No problems noted. 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 Pets and animals: No Sexually active: No Do you think of yourself as: straight/heterosexual Current gender identity: male What is your relationship status?: How often do you talk on the phone with friends or family?: twice per week How often do you get together with friends or relatives?: twice per week How often do you attend congregational or holiness services?: decline to answer Do you belong to any clubs or organized social groups?: no Panel score (0-1 are the most socially isolated patients): 1 What type of physical activity do you participate in: other Duration: < 15 minutes/day Frequency: decline to answer Fiona/Mormon: None Special fiona needs: No Seatbelt use: sometimes Drive intox or ride w/intox driver's license examiner: No Do you feel safe at home: Yes Do you feel safe in your relationship?: Yes Additional Social history: lives alone
--- NOTE | 2024-06-10 13:09 | W.PM.DS.N ---
Date of service: 06/10/24 Time of Service: 13:09 DS: Diagnosis Discharge Diagnosis (1) Acute CVA (cerebrovascular accident): Status: Acute (2) Hypertensive emergency: Status: Acute (3) DM II (diabetes mellitus, type II), controlled: Status: Acute (4) S/P kidney transplant: Status: Chronic (5) ANCA-positive vasculitis: Status: Acute (6) DVT prophylaxis: Status: Acute (7) Lower urinary tract symptoms (LUTS): Status: Acute (8) Hypomagnesemia: Status: Acute (9) Polycythemia: Status: Acute (10) Discharge planning issues: Status: Acute (11) Hypokalemia: Status: Acute (12) Confused but orients easily: Status: Acute Discharge Plan Disposition Patient Disposition: Transfer-Acute Inpatient Care Specific Acute Inpt Facility: [facility] Condition: Stable Discharge Details Reason For Visit: CVA Admit Date/Time: 06/10/24 00:05 Admit Provider: Ruy Hernández Attending Provider: Ruy Hernández Primary Care Provider: Shannan Stevens Hospital Course Hospital Course: This is an 73-year-old gentleman who was seen in the ED on 09 June 2024 for weakness as well as severe balance issues. The patient does have a history of renal transplant as well as vascular dementia and hypertension. At the time of evaluation he was seen by teleneurologist who recommended inpatient admission for evaluation for CVA. The patient states that he has not taken his tacrolimus for the last 3 days. A call was also placed to the transplant team at [facility] who asked that the patient be discharged to their service. Patient was discussed with Dr. Pitt of the transplant surgery service. On 10 June a bed became available patient be transferred to [facility]. In regard to diagnostic information patient does have an elevated white count at 13.59 but this has been viewed and light of chronic steroid use. Patient also had hypokalemia with a potassium of 3.2. He was given oral replacement. Head CT was done at the time of admission and showed no acute intracranial processes. Chest x-ray was done which showed no acute pulmonary findings. Patient will be discharged via ambulance with warehouse consultant support. Patient's blood pressure medicines will be held for another night for permissive hypertension secondary to concern for CVA Home Meds and New Rx's Prescriptions: Continued ergocalciferol (vitamin D2) 1,250 mcg (50,000 unit) capsule 1,250 mcg PO QWEEK Patient Comments: TAKE 1 CAPSULE BY MOUTH ONCE A WEEK mycophenolate sodium 180 mg tablet,delayed release (DR/EC) 180 mg PO DAILY Qty: 90 0RF famotidine [Pepcid] 20 mg tablet 20 mg PO DAILY potassium phosphate, monobasic 500 mg tablet,soluble 1,000 mg PO BID metformin 500 mg tablet 500 mg PO DAILY ketoconazole 2 % shampoo 1 applic topical .2 times weekly Rx Instructions: 04[facility]10/24 [facility] magnesium oxide 400 mg magnesium capsule 400 mg PO BID Rx Instructions: 04/10/24 [facility] -[facility] methenamine hippurate 1 gram tablet 1 g PO BID Rx Instructions: 04/10/24 [facility] -[facility] prednisone 5 mg tablet 5 mg PO DAILY Rx Instructions: 04/10/24 [facility] -[facility] tamsulosin 0.4 mg capsule 0.8 mg PO DAILY Rx Instructions: 04/10/24 [facility]: take 2 capsules PO every day 30 minutes after the same mealtime each day for prostate/urinary symptoms. -hb hydrocortisone 1 % cream 1 applic topical BID PRN Rx Instructions: 04/10/24 [facility], apply small amount for facial rash, use no longer than 3 days on face. -hb tacrolimus 0.5 mg capsule 0.5 mg PO Q12H Qty: 12 0RF Changed atorvastatin [Lipitor] 20 mg tablet 80 mg PO DAILY Qty: 0 0RF Patient Comments: reported by pt from [facility] Discontinued diltiazem HCl 120 mg capsule,extended release 24 hr 120 mg PO DAILY Qty: 90 1RF metoprolol succinate 50 mg tablet extended release 24 hr 50 mg PO DAILY Rx Instructions: 04/10/24 [facility] -[facility] No Action losartan 100 mg tablet 100 mg PO DAILY Rx Instructions: 04/10/24 [facility] -[facility] Discharge Instructions Activity:: Activity as Tolerated Equipment/Supplies:: No Equipment Needed Diet:: As Tolerated Discharge Orders Discharge Orders: Discharge Order (Routine); Ordered 06/10/24 Ordered By: Marcin Lopez DS: Summary Time Spent with Patient providing and/or coordinating discharge services: Greater than 30 minutes Status at Discharge Functional status at discharge: independent ambulation Overall status at discharge: patient is progressing back to baseline Mental Status: mental status grossly normal Speech and Movement: speech and movement normal Mood: congruent mood Affect: normal affect Quality:SDOH Health Related Social Needs: No Data to Display Exam Psych Mental Status: mental status grossly normal Speech and Movement: speech and movement normal Mood: congruent mood Affect: normal affect DS: Data Vitals/I&O Vitals and I&O: Vital Signs Temperature 36.4 C L 06/10/24 08:45 Temperature Source Temporal Artery Scan 06/10/24 08:45 Pulse 79 06/10/24 10:02 Pulse Rhythm Regular 06/09/24 20:38 Pulse Strength Normal 06/09/24 20:38 Pulse 78 06/10/24 10:02 Respiratory Rate 25 H 06/10/24 10:02 Respiratory Effort Normal, Non-Labored 06/10/24 01:57 Respiratory Depth Normal 06/10/24 01:57 Respiratory Pattern Normal 06/10/24 01:57 Blood Pressure 146/114 H 06/10/24 10:02 Blood Pressure Mean 126 06/10/24 10:02 Blood Pressure Position Supine 06/10/24 00:10 Pulse Oximetry 92 06/10/24 09:32 Oxygen Delivery Method Room Air 06/10/24 01:57 Oxygen Flow Rate 0 06/10/24 01:57 Pain Level 0 06/09/24 20:38 Comment nicardipine paused 06/10/24 03:01 Intake & Output 06/09/24 06/10/24 06/10/24 23:59 11:59 23:59 Intake Total 170.833 / 170.833 Output Total 350 / 350 2400 / 2400 Balance -350 / -350 -2229.167 / -2229.167 Weight 87.997 kg 85 kg Intake: IV 170.833 / 170.833 Output: Urine 350 / 350 2400 / 2400 Other: Urine Color Yellow Urine Appearance Clear Urine Odor Normal Data Completed and Pending Labs on day of discharge: Labs from last 24 hours 06/10/24 06/09/24 06/09/24 05:39 14:25 13:21 WBC 13.59 H RBC 5.40 Hgb 15.8 Hct 48.2 MCV 89 MCH 29.3 MCHC 32.8 RDW 13.4 Plt Count 176 MPV 10.4 Immature Gran % 0.7 Neutrophils % 79.2 Lymphocytes % 9.9 Monocytes % 9.7 Eosinophils % 0.1 Basophils % 0.4 Nucleated RBC % 0.0 Absolute Neutrophils 10.76 H Absolute Lymphocytes 1.35 Absolute Monocytes 1.32 H Absolute Eosinophils 0.01 Absolute Basophils 0.05 Sodium 145 Potassium 3.2 L Chloride 109 H Carbon Dioxide 24.9 Anion Gap 11.1 H BUN 15 Creatinine 1.1 Est GFR (CKD-EPI 2020) 70.44 Glucose 131 H Calcium 9.5 Magnesium 1.9 Total Bilirubin AST ALT Alkaline Phosphatase Total Protein Albumin Triglycerides 96 Total Cholesterol 154 LDL Cholesterol, Calc 84 HDL Cholesterol 51 TSH Urine Color Yellow Urine Clarity Clear Urine pH 6.0 Ur Specific Spencer 1.025 Urine Protein 100 H Urine Ketones Negative Urine Blood Negative Urine Nitrite Negative Urine Bilirubin Negative Urine Urobilinogen 0.2 Ur Leukocyte Esterase Negative Urine RBC 0-2 Urine WBC 0-2 Ur Epithelial Cells Rare Urine Crystals Negative Urine Bacteria Rare Urine Casts 0-2 Hyaline Urine Mucus Trace Urine Other Rare Transitional Ur Culture Indicated? No Urine Glucose Negative COVID-19 Source Nasopharynx SARS-CoV-2 (PCR) Negative Influenza Type A (PCR) Negative Influenza Type B (PCR) Negative RSV (PCR) Negative 06/09/24 12:41 WBC RBC Hgb Hct MCV MCH MCHC RDW Plt Count MPV Immature Gran % Neutrophils % Lymphocytes % Monocytes % Eosinophils % Basophils % Nucleated RBC % Absolute Neutrophils Absolute Lymphocytes Absolute Monocytes Absolute Eosinophils Absolute Basophils Sodium 146 H Potassium 3.8 Chloride 109 H Carbon Dioxide 28.3 Anion Gap 8.7 BUN 14 Creatinine 1.4 H Est GFR (CKD-EPI 2020) 52.74 Glucose 155 H Calcium 9.9 Magnesium 1.6 L Total Bilirubin 0.70 AST 18 ALT 33 Alkaline Phosphatase 114 Total Protein 6.6 Albumin 3.7 Triglycerides Total Cholesterol LDL Cholesterol, Calc HDL Cholesterol TSH 3.34 Urine Color Urine Clarity Urine pH Ur Specific Spencer Urine Protein Urine Ketones Urine Blood Urine Nitrite Urine Bilirubin Urine Urobilinogen Ur Leukocyte Esterase Urine RBC Urine WBC Ur Epithelial Cells Urine Crystals Urine Bacteria Urine Casts Urine Mucus Urine Other Ur Culture Indicated? Urine Glucose COVID-19 Source SARS-CoV-2 (PCR) Influenza Type A (PCR) Influenza Type B (PCR) RSV (PCR) PFSH All Active Problems Confused but orients easily (Acute) Hypokalemia (Acute) Polycythemia (Acute) Hypomagnesemia (Acute) Lower urinary tract symptoms (LUTS) (Acute) Discharge planning issues (Acute) DVT prophylaxis (Acute) Hypertensive emergency (Acute) Hypertension (Chronic) Acute CVA (cerebrovascular accident) (Acute) Iliac artery aneurysm, left (Acute) Pancreatic cyst (Acute ~02/2023) noted on CT abdomen pelvis; fullness of pancreatic head. Repeat MRI due in August 2023 Vascular dementia (Chronic ~03/2023) MRI of the brain consistent with small vessel ischemia; needs further neurologic assessment. DM II (diabetes mellitus, type II), controlled (Acute) managed with low dose metformin Exposure to potentially hazardous substance (Chronic) Agent [place] ANCA-positive vasculitis (Acute 03/09/16) Essential hypertension (Acute 05/01/13) Hyperlipidemia (Acute) Non-alcoholic fatty liver disease (Acute) Tubular adenoma (Acute) 06/30/15; DR. 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 Negative Gram stain performed while on antibiotics Hx of bacteremia (03/2023) Due to Klebsiella; treated with Levaquin and metronidazole for 4-week course History of posttraumatic stress disorder (PTSD) managed by [facility] Recurrent urinary tract infection h/o Klebsiella UTI Diverticulosis Skin lesion of face Closed fracture of patella (~1970) History of tobacco use quit in 1999 Goodpasture syndrome (03/09/16) 02/12. Renal failure. Pulmonary dysfunction. anti GBM nephropathy ANCA positive Colon polyp, hyperplastic 2005 Hyperlipidemia Pancreatitis Surgical History Wound dehiscence, internal operation (~04/2020) History of knee surgery Family History Mother , 83 Stroke Sister Breast cancer Brother Essential hypertension Heart disease Hyperlipidemia Maternal Grandfather Stroke Paternal Grandfather Personal history of malignant neoplasm LUNG Son Depression Daughter No problems noted. Father No problems noted. 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 Pets and animals: No Sexually active: No Do you think of yourself as: straight/heterosexual Current gender identity: male What is your relationship status?: How often do you talk on the phone with friends or family?: twice per week How often do you get together with friends or relatives?: twice per week How often do you attend episcopal or buddhism services?: decline to answer Do you belong to any clubs or organized social groups?: no Panel score (0-1 are the most socially isolated patients): 1 What type of physical activity do you participate in: other Duration: < 15 minutes/day Frequency: decline to answer Fiona/Worship: None Special fiona needs: No Seatbelt use: sometimes Drive intox or ride w/intox clark driver: No Do you feel safe at home: Yes Do you feel safe in your relationship?: Yes Additional Social history: lives alone Time Spent with Patient Time Spent with Patient: 45-69 minutes Time was spent: preparing to see the patient(eg.review tests), obtaining and/or reviewing separately otained hiistory, ordering medications,tests, procedures, referring, communicating with other health manager of care, indepentently interpreting results, counseling the patient and care coordination
--- NOTE | 2024-06-10 14:23 | PT.INNT ---
PT Notes Visit Reasons: Cerebrovascular accident After PT Consultation ordered while in ICU. This PT attempted to perform evaluation and was notified by Nursing that the [place] [facility] PT evaluation was therefore not completed.
== END 2024-06-10 14:23 | disposition short-term general hospital (02) | DRG 65 ==
LOC: ER 06-10 00:14 → ICU 06-10 01:25
PROVIDERS: Nurse Practitioner Family; Admitting Provider Family Medicine; Emergency Provider Nurse Practitioner Family; PCP Family Medicine; Visit Provider Family Medicine
DX: I63.9 Cerebral infarction, unspecified (principal); D84.821 Immunodeficiency due to drugs; I16.1 Hypertensive emergency; Z94.0 Kidney transplant status; K86.2 Cyst of pancreas; G81.91 Hemiplegia, unspecified affecting right dominant side; I10 Essential (primary) hypertension; E83.42 Hypomagnesemia; E87.6 Hypokalemia; R41.0 Disorientation, unspecified; F01.50 Vascular dementia, unspecified severity, without behavioral disturbance, psychotic disturbance, mood disturbance, and anxiety; R19.7 Diarrhea, unspecified; Z79.621 Long term (current) use of calcineurin inhibitor; I72.3 Aneurysm of iliac artery; I45.10 Unspecified right bundle-branch block; Z79.84 Long term (current) use of oral hypoglycemic drugs; E78.5 Hyperlipidemia, unspecified; I77.82 Antineutrophilic cytoplasmic antibody [ANCA] vasculitis; J44.9 Chronic obstructive pulmonary disease, unspecified; D75.1 Secondary polycythemia; R27.0 Ataxia, unspecified; K75.81 Nonalcoholic steatohepatitis (NASH); N05.8 Unspecified nephritic syndrome with other morphologic changes; Z79.60 Long term (current) use of unspecified immunomodulators and immunosuppressants
CPT/HCPCS: 00123; 36415; 36416; 80048; 80053; 80061; 82962; 87637; 93005; 96365; 96375; 97163; 99285; J1650; 70450; 71046; 81003; 81015; 83735; 84443; 85025; 93010; 99236; J0360; J1815; J2404; J3475; J3490; J7512

== ENCOUNTER 2024-09-04 08:53 | Outpatient (CLI) | payer MEDICARE, SELFPAY ==
--- NOTE | 2024-09-04 16:16 | DI.RAD_ITS ---
Exam(s) XR FOOT RT COMPLETE EXAM: XR FOOT RT COMPLETE CLINICAL HISTORY: 5th toe pain/injury, Rt foot injury, S99.925K. TECHNIQUE: 2D digital imaging was performed of the right foot. Three images were obtained. AP, obl ique and lateral views were obtained. COMPARISON: CR RIGHT FOOT COMPLETE from 01/10/2018 FINDINGS: BONES: There is a minimally displaced fracture of the base and lateral aspect of the distal phalanx o f the right 5th toe. The fracture extends into the interphalangeal joint. No bony destructive lesio n is seen. There is a small enthesophyte at the posterior calcaneus. There is a small plantar calcan eal spur. There is a question of a lucency through the distal aspect of the distal phalanx of the 4t h toe but this may be overlying soft tissue shadows. Please correlate with the patient's site of karmen n. A repeat examination for further characterization of the 4th toe may be obtained. JOINTS: No dislocation present. SOFT TISSUE: There is soft tissue swelling of the 5th toe. No radiopaque foreign body or soft tissue gas is seen. IMPRESSION: Minimally displaced intra-articular fracture involving the distal phalanx of the right 5th toe. DATA REPOSITORY: RADIATION DOSE DELIVERED:
--- NOTE | 2024-09-04 17:23 | DI.VRAD_ITS ---
PROCEDURE INFORMATION: Exam: XR Right Foot Exam date and time: 09/04/2024 4:06 PM Age: 74 years old Clinical indication: Injury or trauma; Other: Dropped something on foot; Blunt trauma; Right; Injury date: 09/04/2024 TECHNIQUE: Imaging protocol: Radiologic exam of the right foot. Views: 3 or more views. COMPARISON: CR RIGHT FOOT COMPLETE 01/10/2018 10:07 AM FINDINGS: Bones/joints: Diffuse degenerative change of the visualized osseous structures. Intra-articular minimally displaced fracture through the base of the distal phalanx of the 5th digit. Questionable transverse fracture without significant displacement through the distal phalanx of the 4th digit. Soft tissues: Normal. Vasculature: Peripheral arterial vascular disease. IMPRESSION: 1. Intra-articular minimally displaced fracture through the base of the distal phalanx of the 5th digit. 2. Questionable transverse fracture without significant displacement through the distal phalanx of the 4th digit. Dictated and Authenticated by: Jc Perla MD. Orderin Marion Santillan MD
== END 2024-09-04 09:13 ==
LOC: DI 08:54
PROVIDERS: PCP Family Medicine; Visit Provider Registered Nurse
DX: S92.534A Nondisplaced fracture of distal phalanx of right lesser toe(s), initial encounter for closed fracture (principal); X58.XXXA Exposure to other specified factors, initial encounter
CPT/HCPCS: 73630

== ENCOUNTER 2024-10-02 01:59 | Outpatient (CLI) | payer MEDICARE, SELFPAY ==
[2024-10-02 12:10] LABS: HCT 47.9 % (40.0-50.0); HGB 15.9 g/dL (13.5-17.5); MCHC 33.2 % (32.0-36.0); MCV 90 fL (80-95); MPV 9.8 fL (8.0-11.0); Platelet Count 169 10^3/uL (130-400); RDW 13.5 % (11.8-14.1); RDW-SD 44.7 fL; Reticulocyte 1.6 % (0.5-2.4)
[2024-10-02 12:31] LABS: Hemoglobin A1C 6.6 % (<5.7)
[2024-10-02 13:15] LABS: ALT 23 U/L (16-63); AST 17 U/L (15-37); Albumin 3.4 g/dL (3.4-5.0); Alkaline Phosphatase 105 U/L (46-116); BUN 17 mg/dL (7-18); Bilirubin, Total 0.7 mg/dL (0.2-1.0); CREATININE 1.3 mg/dL (0.70-1.30); Calcium 9.9 mg/dL (8.5-10.1); Calculated LDL 50 mg/dL (<100); Chloride 107 mmol/L (98-107); Cholesterol 136 mg/dL (<200); Estimated GFR 57.29 (mL/min/1.73m2); Glucose 126 mg/dL (74-106); HDL Cholesterol 43 mg/dL (>or=40); Magnesium 1.3 mg/dL (1.8-2.4); Potassium 3.9 mmol/L (3.5-5.1); Sodium 142 mmol/L (136-145); Total Protein 6.9 g/dL (6.4-8.2); Triglyceride 216 mg/dL (<150)
[2024-10-02 13:32] LABS: PHOSPHORUS 2.8 mg/dL (2.6-4.7); Uric Acid 5.6 mg/dL (3.5-7.2)
[2024-10-02 18:22] LABS: Vitamin D 25 Total 62 ng/mL (30-100)
[2024-10-02 23:11] LABS: Parathyroid Hormone,Intact 112 pg/mL (19-88)
[2024-10-03 13:55] LABS: Tacrolimus 12.2 ng/mL (See Note)
[2024-10-04 14:17] LABS: BKV DNA Detect/Quant, P Undetected IU/mL (Undetected)
[2024-10-08 16:15] LABS: 1,25-Dihydroxyvitamin D 61 pg/mL (18-64)
== END 2024-10-02 02:00 | disposition home or self-care (01) ==
PROVIDERS: PCP Family Medicine; Visit Provider Nurse Practitioner Family
DX: Z94.0 Kidney transplant status (principal); Z79.899 Other long term (current) drug therapy; E55.9 Vitamin D deficiency, unspecified; T86.19 Other complication of kidney transplant
CPT/HCPCS: 36415; 80053; 80061; 82306; 82310; 83735; 85027; 80197; 81003; 82565; 82652; 83036; 83970; 84100; 84105; 84156; 84550; 85045; 87799

== ENCOUNTER 2024-10-27 20:36 | Observation (INO) | payer OTHER, SELFPAY ==
[2024-10-27] VITALS (52 sets, daily range): BP systolic 135–153; BP diastolic 55–60; PULSE 67–80; RESP 10–21; TEMP 36.5–36.6; O2SAT 88–98
--- NOTE | 2024-10-27 21:00 | DI.RAD_ITS ---
Exam(s) XR PORTABLE CHEST AP EXAM: XR PORTABLE CHEST AP CLINICAL HISTORY: r/o pulmonary edema. TECHNIQUE: 2D digital imaging was performed. COMPARISON: CR XR CHEST 2V PA LATERAL from 06/09/2024 FINDINGS: Single AP portable view. Heart size is upper normal. The mediastinum is not widened. Bilateral interstitial lung disease is again noted. Consistent with element of pulmonary fibrosis. There are no pleural effusions. No pulmonary edema. IMPRESSION: Interstitial fibrosis but no confluent infiltrates and no pleural effusions.Normal heart size. No ev idence of pulmonary edema. DATA REPOSITORY: RADIATION DOSE DELIVERED:
--- NOTE | 2024-10-27 21:00 | DI.CT_ITS ---
Exam(s) CT CHEST/ABD/PEL WO EXAM: CT CHEST/ABD/PEL WO CLINICAL HISTORY: sepsis workup, lower back pain, kidney transplant. TECHNIQUE: Imaging Protocol: Axial computed tomography images with coronal and sagittal reformatted images were created and reviewed CONTRAST MATERIAL: Intravenous: none Oral: None FINDINGS: CHEST: LUNGS: There are advanced emphysematous changes in both lung suazo. Multiple bullae; no pneumothora x. There are no confluent infiltrates nor pleural effusions. No significant focal findings in the t rachea and mainstem bronchi. MEDIASTINUM: No obvious hilar nor mediastinal adenopathy. Visualized thyroid unremarkable. CARDIAC: Heart size is normal. There is mild uniform thickening of the pericardium consistent with s mall pericardial effusion. Maximum thickness is 4-5 mm.Caliber of the thoracic aorta is within marc l limits. OSSEOUS: No significant osseous lesions.No fractures.. ABDOMEN: There is no significant ascites. LIVER: There are no obvious focal hepatic lesions evident of this noninfused study. GALLBLADDER/BILIARY: Partially contracted gallbladder. No obvious acute gallbladder pathology. CBD is not dilated. PANCREAS: There are multiple cystic lesions in the pancreas which have increased in size and number f rom the CT scan of February 2023. The largest is in the region of the pancreatic body-tail junction a nd measures 4.4 cm craniocaudal by 2.7 cm wide by 4.2 cm AP and containing some mural calcification p osteriorly or layering calcification within the dependent aspect of the lumen.. Another cyst is seen in the uncinate process measuring 1.6 x 1.2 cm and another in the pancreatic head measuring 1.9 cm A P by 1.4 cm wide. Other cysts in the tail of the pancreas also noted. SPLEEN: Spleen is not enlarged. No obvious intrasplenic lesions. ADRENALS: There are no significant adrenal masses. KIDNEYS: With respect of the [place] kidneys: There is a cyst in the medial cortex of the right kidney which measures 1.7 cm. Small calcification or hyperdense cyst is noted in the posterior cortex of t he opposite-left kidney, not previously present. There is no hydronephrosis on either side. Some pe rinephric streaking is noted bilaterally.. No ominous solid renal masses. The right pelvic transplant kidney exhibits normal cortical thickness and no masses nor cysts nor ayo culi nor hydronephrosis. ABDOMINAL AORTA: Abdominal aorta is not enlarged. However, there is fusiform aneurysmal dilatation o f the distal left common iliac artery which exhibits diameter of 2.2 cm. Diameter right common iliac artery measures 1.9 cm. LYMPH NODES: There is no retroperitoneal nor para-aortic adenopathy. ABDOMINAL WALL/GI: No evidence of significant anterior abdominal wall nor inguinal hernia. No evidence of bowel obstruction, free air, nor abscess. PELVIS: LYMPH NODES: There is no intrapelvic nor inguinal adenopathy. GI: No evidence of appendicitis.There is sigmoid diverticuli but no evidence of obvious acute diverti culitis. URINARY BLADDER: No calculi nor obvious masses evident REPRODUCTIVE: Prostate size upper normal. Seminal vesicles unremarkable. OSSEOUS: No significant osseous lesions. No acute fractures. Superior endplate T12 height loss is unchanged from 2022. IMPRESSION: 1. Diffuse advanced emphysematous lung changes but no infiltrates nor pleural effusions nor intrathor acic adenopathy. 2. There is an unremarkable appearing right renal pelvic transplant kidney. The [place] kidneys exhib it mild atrophy and benign cysts, including a small 6 mm hyperdense cyst in the posterior left [place] kidney. Urinary bladder appears unremarkable. 3. There is a fusiform aneurysm of the distal left common iliac artery with diameter 2.2 cm. 4. No evidence of bowel obstruction, free air, nor abscess and there is no ascites. Preliminary virtual Radiology report was reviewed RADIATION DOSE DELIVERED: 596.78mGy.cm Total DLP DATA REPOSITORY: All CT scans at this facility are submitted to the National Radiology Data Registry (NRDR) Dose Index Registry (DIR) with the [employer] (ACR). RADIATION OPTIMIZATION: All CT scans at this facility use at least one of these dose optimization te chniques: automated exposure control; mA and/or kV adjustment per patient size (includes targeted exa ms where dose is matched to clinical indication); or iterative reconstruction.
--- NOTE | 2024-10-27 21:03 | ED.GENADUL_ITS ---
Discharge Plan Discharge Details Chief Complaint: Urinary Primary Care Provider: Shannan Stevens ED Provider: Sindhu Orta Home Meds and New Rx's Prescriptions: No Action ergocalciferol (vitamin D2) 1,250 mcg (50,000 unit) capsule 1,250 mcg PO QWEEK Patient Comments: TAKE 1 CAPSULE BY MOUTH ONCE A WEEK mycophenolate sodium 180 mg tablet,delayed release (DR/EC) 180 mg PO DAILY Qty: 90 0RF famotidine [Pepcid] 20 mg tablet 20 mg PO DAILY metformin 500 mg tablet 500 mg PO BID clopidogrel [Plavix] 75 mg tablet 75 mg PO DAILY prednisone 5 mg tablet 5 mg PO DAILY Rx Instructions: 04/10/24 per [facility]. -hb hydrocortisone 1 % cream 1 applic topical BID PRN Rx Instructions: 04/10/24 per [facility], apply small amount for facial rash, use no longer than 3 days on face. -hb carvedilol 12.5 mg tablet 12.5 mg PO BID Rx Instructions: must administer with a meal/food cephalexin 500 mg capsule 500 mg PO TID Patient Comments: TAKE ONE CAPSULE BY MOUTH THREE TIMES A DAY FOR 7 DAYS STARTED 10/25 diltiazem HCl [DILT-XR] 120 mg capsule,ext.rel 24h degradable 120 mg PO Q12H atorvastatin [Lipitor] 20 mg tablet 40 mg PO QHS Patient Comments: reported by pt from [facility] tacrolimus 0.5 mg capsule 1 mg PO DAILY HPI General Date/Time Provider Initiated Documentation: 10/27/24 20:40 . HPI Narrative: Gamaliel is a 74-year-old male with a kidney transplant 3 years ago who presents to the emergency department after his and daughter called EMS because they were concerned about his weakness. Gamaliel does have a history of vascular dementia that does appear to limit history. According to EMS he was too weak to get up out of the chair and had been crawling to get around. Gamaliel reports he was diagnosed with asymptomatic UTI during routine physical at [facility] on Tuesday and started on antibiotics. He reports he has had lower back discomfort and bladder control issues for 2-3 days/loss of bladder control. Denies fever/chills, headache, dizziness, congestion, change in baseline sore throat or cough, chest pain, shortness of breath, change in p.o. intake, change in bowel function. Past medical history significant for Goodpasture syndrome, congenital heart murmur, T2DM, HTN, HLD, ANCA-positive vasculitis. He is a former tobacco user. Related Data Home Medications ?Medication ?Instructions ?Recorded ?Confirmed famotidine 20 mg tablet (Pepcid) 20 mg PO DAILY 02/13/21 10/27/24 ergocalciferol (vitamin D2) 1,250 1,250 mcg PO QWEEK 11/24/22 10/27/24 mcg (50,000 unit) capsule mycophenolate sodium 180 mg 180 mg PO DAILY #90 tabs 08/24/23 10/27/24 tablet,delayed release metformin 500 mg tablet 500 mg PO BID 02/29/24 10/27/24 hydrocortisone 1 % topical cream 1 applic topical BID PRN 04/10/24 10/27/24 prednisone 5 mg tablet 5 mg PO DAILY 04/10/24 10/27/24 clopidogrel 75 mg tablet (Plavix) 75 mg PO DAILY 06/15/24 10/27/24 atorvastatin 20 mg tablet (Lipitor) 40 mg PO QHS 10/27/24 10/27/24 carvedilol 12.5 mg tablet 12.5 mg PO BID 10/27/24 10/27/24 cephalexin 500 mg capsule 500 mg PO TID 10/27/24 10/27/24 diltiazem HCl 120 mg 120 mg PO Q12H 10/27/24 10/27/24 capsule,extended release 24 hr, controlled (DILT-XR) tacrolimus 0.5 mg capsule, 1 mg PO DAILY 10/27/24 10/27/24 immediate-release Previous Rx's ?Medication ?Instructions ?Recorded mycophenolate sodium 180 mg 180 mg PO DAILY #90 tabs 08/24/23 tablet,delayed release Allergies Allergy/AdvReac Type Severity Reaction Status Date / Time Penicillins Allergy Severe CARDIAC Unverified 10/27/24 20:45 ARREST ibuprofen AdvReac Intermediate its hard Verified 10/27/24 20:45 on my kidneys lisinopril AdvReac Intermediate cough Unverified 10/27/24 20:45 General Stated Complaint: Urinary JENNIFER: 3 Exam Narrative Exam Narrative: General Appearance: Patient appears fatigued, responds appropriately to questions. Vital signs: Oxygen saturation in the 90-93% range when awake and talking, noted to occasionally dipped to 89% while resting. HEENT: Dry mucous membranes. Respiratory: Easy work of breathing, lung sounds clear bilaterally Cardiovascular: Murmur noted. Regular rate and rhythm. Gastrointestinal: Abdomen is soft, nondistended, nontender to palpation with normoactive bowel sounds. Ventral hernia noted. : No CVA tenderness Skin: Warm and dry, no rash. Psychiatric: Normal. Course Vital Signs Vital signs: Vital Signs Temperature 36.6 C 10/27/24 20:40 Pulse 80 10/27/24 20:40 Respiratory Rate 19 10/27/24 20:40 Blood Pressure 153/60 H 10/27/24 20:40 Pulse Oximetry 95 10/27/24 20:40 Temperature 36.5 C 10/27/24 20:47 Temperature Source Oral 10/27/24 20:47 Pulse 75 10/27/24 20:47 Respiratory Rate 21 10/27/24 20:47 Blood Pressure 135/55 L 10/27/24 20:47 Blood Pressure Position Sitting 10/27/24 20:47 Pulse Oximetry 94 10/27/24 20:47 Oxygen Delivery Method Room Air 10/27/24 20:47 Oxygen Flow Rate 0 10/27/24 20:40 Pain Level 0 10/27/24 20:47 Medical Decision Making Initial Assessment: Gaamliel, a 74-year-old male with a history of kidney transplant 3 years ago, presents with concerns about weakness, urinary tract infection, and lower back pain. Differential Diagnosis includes but is not limited to: Urosepsis, occult infection such as pneumonia, nephrolithiasis, viral illness, dehydration, electrolyte imbalance, kidney failure, liver dysfunction, transplant rejection ED Course: - IV fluids ordered for rehydration (500 mL at start) - Empiric treatment with ceftriaxone for presumed sepsis - Sepsis protocol initiated, though will be hydrate patient gently due to uncertainty regarding kidney function. I independently interpreted the following tests: CBC notable for leukocytosis, white cell count 18.25. Creatinine to BUN ratio elevated (creat 1.0: BUN 24), consistent with dehydration. Hypoalbuminemia noted (albumin 2.8 today, decreased from 3.4 on 10/02/2024). BNP slightly elevated. Lactate, COVID/flu/RSV all reassuring. UA consistent with traumatic catheterization, not concerning for UTI. Handoff report given to Dr. Holcomb, overnight attending physician. MDM Components Evaluation: - Number of Differential Diagnoses or Management Options: Urinary Tract Infection, Lower Back Pain - Amount and Complexity of Data Reviewed: Patient history, physical examination, imaging orders - Risk of Complication and Morbidity or Mortality: Moderate risk due to history of kidney transplant and current symptoms Patient consented to the use of FAVIOLA Imaging Data Radiologic Study: Radiologist's impression: PROCEDURE INFORMATION: Exam: XR Chest Exam date and time: 10/27/2024 9:13 PM Age: 24 years old Clinical indication: Other: Possible fb- bone x 1 hr TECHNIQUE: Imaging protocol: Radiologic exam of the chest. Views: 2 views. COMPARISON: No relevant prior studies available. FINDINGS: Lungs: Unremarkable. No consolidation. No radiopaque foreign body. Pleural spaces: Unremarkable. No pleural effusion. No pneumothorax. Heart/Mediastinum: Unremarkable. No cardiomegaly. Bones/joints: Unremarkable. IMPRESSION: No acute findings Quality:SDOH Health Related Social Needs: No Data to Display PFSH All Active Problems Confused but orients easily (Acute) Polycythemia (Acute) Lower urinary tract symptoms (LUTS) (Acute) Hypertension (Chronic) Acute CVA (cerebrovascular accident) (Acute) Iliac artery aneurysm, left (Acute) Pancreatic cyst (Acute ~02/2023) noted on CT abdomen pelvis; fullness of pancreatic head. Repeat MRI due in August 2023 Vascular dementia (Chronic ~03/2023) MRI of the brain consistent with small vessel ischemia; needs further neurologic assessment. DM II (diabetes mellitus, type II), controlled (Acute) managed with low dose metformin Exposure to potentially hazardous substance (Chronic) Agent Ida ANCA-positive vasculitis (Acute 03/09/16) Essential hypertension (Acute 05/01/13) Hyperlipidemia (Acute) Non-alcoholic fatty liver disease (Acute) Tubular adenoma (Acute) 06/30/15; DR. 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 Negative Gram stain performed while on antibiotics Hx of bacteremia (03/2023) Due to Klebsiella; treated with Levaquin and metronidazole for 4-week course History of posttraumatic stress disorder (PTSD) managed by [facility] Recurrent urinary tract infection h/o Klebsiella UTI Diverticulosis Skin lesion of face Closed fracture of patella (~1970) History of tobacco use quit in 1999 Goodpasture syndrome (03/09/16) 02/12. Renal failure. Pulmonary dysfunction. anti GBM nephropathy ANCA positive Colon polyp, hyperplastic 2005 Hyperlipidemia Pancreatitis Surgical History Wound dehiscence, internal operation (~04/2020) History of knee surgery Family History Mother , 83 Stroke Sister Breast cancer Brother Essential hypertension Heart disease Hyperlipidemia Maternal Grandfather Stroke Paternal Grandfather Personal history of malignant neoplasm LUNG Son Depression Daughter No problems noted. Father No problems noted. 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 Pets and animals: No Sexually active: No Do you think of yourself as: straight/heterosexual Current gender identity: male What is your relationship status?: How often do you talk on the phone with friends or family?: twice per week How often do you get together with friends or relatives?: twice per week How often do you attend jehovah's witness or zoroastrianism services?: decline to answer Do you belong to any clubs or organized social groups?: no Panel score (0-1 are the most socially isolated patients): 1 What type of physical activity do you participate in: other Duration: < 15 minutes/day Frequency: decline to answer Fiona/Gnosticist: None Special fiona needs: No Seatbelt use: sometimes Drive intox or ride w/intox 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
[2024-10-27 21:34] LABS: Lactate 1.5 mmol/L (<or=2.0)
[2024-10-27 21:36] LABS: Abs Immature Grans 0.13 10^3/uL (0.0-0.06); Absolute Basophil Count 0.02 10^3/uL (0.0-0.2); Absolute Monocyte Count 1.33 10^3/uL (0.1-0.8); Basophils % 0.1 %; Eosinophils % 0.1 %; HCT 42.9 % (40.0-50.0); HGB 14.1 g/dL (13.5-17.5); Immature Grans % 0.7 %; Lymphocytes % 8.8 %; MCH 29.4 pg (27.0-33.0); MCHC 32.9 % (32.0-36.0); MCV 89 fL (80-95); MPV 9.8 fL (8.0-11.0); Monocytes % 7.3 %; Platelet Count 175 10^3/uL (130-400); RDW 12.8 % (11.8-14.1); RDW-SD 41.7 fL; WBC 18.25 10^3/uL (4.4-10.8)
[2024-10-27 21:37] LABS: Absolute Eosinophil Count 0.02 10^3/uL (0.0-0.7); Absolute Lymphocyte Count 1.61 10^3/uL (1.2-3.4); Absolute Neutrophil Count 15.15 10^3/uL (1.2-6.7)
[2024-10-27 21:52] LABS: ALT 19 U/L (16-63); AST 12 U/L (15-37); Albumin 2.8 g/dL (3.4-5.0); Alkaline Phosphatase 95 U/L (46-116); Anion Gap 8.4 mmol/L (3-11); BUN 24 mg/dL (7-18); Bilirubin, Total 0.8 mg/dL (0.2-1.0); CO2 24.6 mmol/L (21.0-32.0); Calcium 9.8 mg/dL (8.5-10.1); Chloride 105 mmol/L (98-107); Estimated GFR 78.49 (mL/min/1.73m2); Glucose 207 mg/dL (74-106); Potassium 3.7 mmol/L (3.5-5.1); Sodium 138 mmol/L (136-145); Total Protein 6.5 g/dL (6.4-8.2)
[2024-10-27 22:18] LABS: NT-proBNP 657 pg/mL (<300)
[2024-10-27] MEDS: cefTRIAXone 1 GM/50 ML BAG IVPB (22:24)
[2024-10-27] MEDS: Normal Saline 500 ML IV (22:25)
[2024-10-27] MEDS: Lidocaine 2% Jelly 11 ML SYR UR (22:26)
[2024-10-27 22:32] LABS: COVID-19 PCR Negative (Negative); Influenza A PCR Negative (Negative); Influenza B PCR Negative (Negative); RSV PCR Negative (Negative)
[2024-10-27 22:33] LABS: Source Nasopharynx
[2024-10-27 22:40] LABS: Bilirubin Negative (Negative); Blood Moderate (Negative); Clarity Clear (Clear); Glucose Negative (Negative); Ketones Negative (Negative); Leukocyte Esterase Negative (Negative); Nitrite Negative (Negative); Urobilinogen 0.2 mg/dL (Up to 0.2)
[2024-10-27 22:48] LABS: Epithelial Cells Rare HPF (Negative); WBC Negative HPF (0-5)
[2024-10-27 22:49] LABS: Bacteria Rare HPF (Negative); C & S Indicated? No; Casts Negative LPF (Negative); Crystals Negative HPF (Negative); Mucus Negative (Negative); Other Cells Few Spermatozoa (Negative)
--- NOTE | 2024-10-27 23:02 | DI.VRAD_ITS ---
PROCEDURE INFORMATION: Exam: XR Chest Exam date and time: 10/27/2024 9:52 PM Age: 74 years old Clinical indication: Other: R/O pulmonary edema TECHNIQUE: Imaging protocol: Radiologic exam of the chest. Views: 1 view. COMPARISON: CR XR CHEST 2V PA LATERAL 06/09/2024 1:34 PM FINDINGS: Lungs: Chronic increased interstitial lung markings. Stable since 06/09/2024. These features are consistent with interstitial fibrosis or chronic interstitial disease. There are no acute regions of airspace consolidation. No jyoti pulmonary edema. Possibility of mild interstitial edema or CHF is not excluded. Pleural spaces: Blunted costophrenic angles bilaterally suggesting minor pleural effusions. Heart/Mediastinum: Normal heart size. Bones/joints: Degenerative thoracic spine. IMPRESSION: 1. Chronic appearing increased interstitial lung markings. Superimposed mild interstitial edema or CHF is not excluded. 2. Minor bilateral pleural effusions. 3. Normal heart size. 4. No focal lung consolidation or infiltrates. Dictated and Authenticated by: Hesham Jenkins MD. Orderin Mariel Manley MD
--- NOTE | 2024-10-27 23:32 | DI.VRAD_ITS ---
PROCEDURE INFORMATION: Exam: CT Chest Without Contrast; Diagnostic Exam date and time: 10/27/2024 10:58 PM Age: 74 years old Clinical indication: Other: Low back pain; Prior surgery; Surgery date: 6+ months; Surgery type: Kidney transplant x 2006; Additional info: Sepsis workup, lower back pain, kidney transplant TECHNIQUE: Imaging protocol: Diagnostic computed tomography of the chest without contrast. 3D rendering (Not supervised by radiologist): MIP and/or 3D reconstructed images were created by the technologist. COMPARISON: CT CHEST/ABD/PEL WO 03/14/2023 3:34 AM FINDINGS: Lungs: Severe pulmonary emphysema. Extensive lung bullae. Mild bronchiectasis consistent with a component of COPD. No acute lung infiltrates. No pulmonary edema. Pleural spaces: No pleural effusion. No pneumothorax. Incidental note of a posterior left hemithorax subpleural lipoma measuring 27 x 16 mm. Series 4: Image 63. Heart: Normal heart size. No pericardial effusion. Moderate coronary artery atherosclerotic calcium. Mitral and aortic valve calcifications. Lymph nodes: Unremarkable. No enlarged lymph nodes. Vasculature: Thoracic aorta atherosclerotic calcium. No aneurysmal change. Bones/joints: Degenerative thoracic spine changes. No acute skeletal findings. Soft tissues: Chest wall soft tissues are unremarkable. IMPRESSION: 1. Diffuse emphysematous lung change. 2. No acute infiltrates or edema. 3. No acute pleural change. 4. Coronary artery atherosclerotic calcium and valvular calcification. PROCEDURE INFORMATION: Exam: CT Abdomen And Pelvis Without Contrast Exam date and time: 10/27/2024 10:58 PM Age: 74 years old Clinical indication: Other: Low back pain; Prior surgery; Surgery date: 6+ months; Surgery type: Kidney transplant x 2006; Additional info: Sepsis workup, lower back pain, kidney transplant TECHNIQUE: Imaging protocol: Computed tomography of the abdomen and pelvis without contrast. 3D rendering (Not supervised by radiologist): MIP and/or 3D reconstructed images were created by the technologist. COMPARISON: MR ABDOMEN WO 12/30/2023 9:25 AM FINDINGS: Liver: The liver is normal in size, contour and attenuation. A hepatic dome 10 mm low-attenuation focus is most consistent with a small benign cyst. No change since 2022. Gallbladder and biliary ducts: Partially contracted gallbladder. No acute change. No gallstones. Pancreas: Mild pancreatic atrophy. Nonspecific low-attenuation focus of the pancreatic head is likely a cyst. 21 x 15 mm. Series 5: Image 75. This appears to represent a change since 03/14/2023. An additional lesion is suggested in the uncinate process of the pancreas measuring 16 x 13 mm. Series 5: Image 79. This also appears to represent a new finding. There is also a lesion of the pancreatic tail with low attenuation measuring 27 x 24 mm. Series 5: Image 63. This is suggested on prior study from 2022 but appears more prominent on current evaluation. There is also an enlarging anterior peripancreatic fluid collection measuring 4.2 x 3.2 cm on series 5: Image 68. This is contiguous with the pancreas and adjacent to the pancreatic body and tail junction. This does show some calcification of its posterior wall. This has increased in size significantly since previous study at which time it was 23 x 15 mm. No peripancreatic inflammation. A prior abdominal MRI 06/30/2023 does show multiple pancreatic cystic lesions appearing to correlate with the current findings. These are considered benign by prior MRI evaluation. Spleen: The spleen is normal in size, contour and attenuation. The spleen is normal in size, contour and attenuation. Adrenal glands: The adrenal glands are normal in size and contour bilaterally. Kidneys and ureters: Mild renal atrophy. No acute changes. Hyperdense focus in the posterior left renal parenchyma measuring 6 mm is most likely a hyperdense cyst. A low-attenuation focus in the posterior right renal parenchyma is 17 mm. This was present previously and is most consistent with a benign cyst.No further imaging follow-up of the renal cysts is recommended based on MIPS criteria. Right pelvic renal transplant is visible. Unremarkable in appearance. No obstructive uropathy. No inflammatory features. Stomach and bowel: Gastric morphology is unremarkable. No edema. No gastric outlet obstruction. Small bowel loops are normal in course and caliber. There is no mucosal edema or bowel wall thickening. No obstructive features. Large bowel is unremarkable in course and caliber. No edema or inflammatory features. Formed feces. No obstruction. Appendix: No evidence of appendicitis. Intraperitoneal space: No free fluid in the abdomen or pelvis. No free air. Vasculature: Aortoiliac atherosclerotic calcium. Bilateral common iliac arteries with fusiform aneurysmal dilatation at 2 cm on right and 2.2 cm on left. Lymph nodes: Unremarkable. No enlarged lymph nodes. Urinary bladder: Urinary bladder is unremarkable in appearance. No wall thickening. No intravesicular calculi. No intravesicular gas. Reproductive: Moderate prostatic enlargement. Recommend clinical correlation. Bones/joints: Degenerative lumbar spine. No acute skeletal change. Old mild compression fracture of T12. Soft tissues: Abdominal wall soft tissues are unremarkable. IMPRESSION: 1. Multiple pancreatic lesions involving the head, uncinate process, tail, and body region. No acute inflammatory change. Interval changes with some lesions enlarging since CT 03/14/2023. There is a previous MRI noted 12/30/2023. This does show multiple pancreatic cystic lesions which appear benign and seem to correlate with the current CT identified lesions. 2. Mild bilateral renal atrophy. No acute change. 3. No bowel obstruction or edema. 4. Right pelvic renal transplant is unremarkable in appearance. 5. Prostatic enlargement. 6. No free fluid. No free air. 7. No bowel obstruction or edema. 8. Degenerative lumbar spine features. Dictated and Authenticated by: Hesham Jenkins MD. Orderin Mariel Manley MD
--- NOTE | 2024-10-27 23:47 | W.PM.HP.N ---
Date of service: 10/27/24 Time of Service: 23:48 Assessment and Plan Assessment and plan (1) Acute dehydration: Start date: 10/27/24 Status: Acute Assessment and plan: This is a 74-year-old gentleman who [facility] but also receiving care at [facility] status post renal transplant 3 years ago. He had a diagnosis of UTI last week at his renal transplant visit and was initiated on Keflex. He has not been eating or drinking as well and became more confused and was found crawling on the floor at his home after his family called for EMT to bring him to the ED. Upon evaluation in the ED his renal function was normal but urine was slightly concentrated without signs of infection on Keflex for at least 3 days and his WBC was elevated but this is chronically elevated though slightly worse. He had dry oromucosa and was initiated on IV hydration. After IV hydration for several hours he was slightly more alert but continued to have wandering conversation. 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 He also has a history of vascular dementia and this may have worsened with his acute illness. Continue IV hydration and trend lab to watch for fluid overload with imaging of the chest revealing possible fluid overload with no recent echocardiogram. If the patient remains hospitalized consider echocardiogram during this hospital stay. He will be treated for possible UTI with Rocephin since he is immunocompromise status post renal transplant with urine and blood cultures obtained. He is a DNR but wants trial of intubation if needed. As stated he does have chronic lung disease and is a previous smoker. He has an estranged relationship with his not being but not living together. She sounds very controlling and somewhat verbally abusive at times according to the patient but he is a poor historian. (2) Leukocytosis (leucocytosis): Start date: 10/27/24 Status: Acute Assessment and plan: Patient was found acutely confused he does have a history of bacteremia status post renal transplant on immunosuppression. He was given Rocephin and blood cultures were performed. He does have a history of recurrent UTIs with Klebsiella in urine culture will be performed even though the UA was negative. He was on a short course of oral Keflex with a diagnosis of UTI 3 days ago in the renal transplant clinic. He will continue on Rocephin until blood cultures resolved or if he has fever or worsening symptoms we should consider expanding antibiotic coverage with reevaluation of source of infection. (3) Recurrent urinary tract infection: Assessment and plan: Patient is status post renal transplant 3 years ago with recurrent UTIs by diagnosis but he states he has had only 2 UTIs. He is a poor historian. He does have chronic leukocytosis but this seems slightly worse upon this presentation. (4) S/P kidney transplant: Status: Chronic Assessment and plan: Continue immunosuppressants while hospitalized. His renal functions have normalized. (5) Immunosuppressed status: Status: Chronic Assessment and plan: Continue immunosuppressants status post renal transplant but this does put him at risk for severe infection if not treated aggressively. (6) Hyperlipidemia: Status: Chronic Assessment and plan: Continue outpatient statin therapy. Patient is status post CVA. He is on Plavix as well. (7) DM II (diabetes mellitus, type II), controlled: Status: Chronic Assessment and plan: Hold metformin and check glucometers before meals and at bedtime with sensitive sliding scale coverage. (8) Hypertension: Status: Chronic Assessment and plan: Continue outpatient medical therapy adjusting as needed. (9) Vascular dementia: Status: Chronic Assessment and plan: This may be slightly exacerbated the patient's acute illness. Continue to monitor as we rehydrate watching for fluid overload. Continue Plavix and statin therapy. (10) GERD (gastroesophageal reflux disease): Status: Chronic Assessment and plan: Continue famotidine. (11) Acute CVA (cerebrovascular accident): Status: Chronic Assessment and plan: Patient had acute CVA in the left cerebral hemisphere May of this year by history. He is on Plavix and statin. He did have increased weakness and was crawling on the floor and his CPK will be checked with the patient on IV hydration already. Physical therapy should see patient to assess use of walker which he states he uses at home. History of Present Illness History of Present Illness Chief Complaint: Weakness with incontinence, crawling on the floor. Narrative: This is a 74-year-old male patient who usually goes to the [facility] being a [place] and having some PTSD status post deployment to [place]. His CVA in May of this year with right-sided weakness being a left cerebral CVA and has rehabilitated at home using a walker. He is status post renal transplant 3 years ago and followed up with his transplant team this last Tuesday and was diagnosed with a UTI having low back pain but no dysuria and otherwise been asymptomatic. He has had no fever and always has an elevated WBC. He states that when he has a UTI he does have low back pain as he had during his presentation to the ED. EMT was called to his house by his daughter and who do not live with him though his does attend to him sometimes daily. They were concerned that he was weak and when EMT went to his house they found him on the floor crawling with complaints of weakness and urinary incontinence over the last several days. He has been taking his oral antibiotic which appear to be Keflex with the assistance of his estranged . They are not but she visits him and he states that she has a variable mood sometimes being verbally abusive. The patient is a vague historian and wanders in conversation and is very talkative. He denies fever or chills and has had no dysuria but his low back pain as a warning of kidney infection. As that he always has some leukocytosis but this was slightly worse. His urinalysis by catheterization did not appear abnormal except for a traumatic catheterization with RBCs. Urine culture and blood cultures were performed and patient was initiated on Rocephin because of his presenting symptoms and history of renal transplant being immunocompromise as well as having recurrent UTIs. He may have been a partially treated UTI. Since he was on the ground we will check a CPK and he is on IV hydration because of his weakness and decreased intake recently because of his confusion with his infection. He did not appear septic. The patient was continued on her usual medications which include antihypertensives, platelet inhibitor because of his stroke and renal transplant medications. He would not be continued on metformin but have glucometers with sensitive sliding scale coverage while hospitalized. He has a DNR. Review of Systems Narrative: 13 point review of systems otherwise unrevealing or stable/unobtainable with patient's vague history. PFSH All Active Problems GERD (gastroesophageal reflux disease) (Chronic) Leukocytosis (leucocytosis) (Acute) Acute dehydration (Acute) Confused but orients easily (Acute) Polycythemia (Acute) Lower urinary tract symptoms (LUTS) (Acute) Hypertension (Chronic) Acute CVA (cerebrovascular accident) (Chronic) Iliac artery aneurysm, left (Acute) Pancreatic cyst (Acute ~02/2023) noted on CT abdomen pelvis; fullness of pancreatic head. Repeat MRI due in August 2023 Vascular dementia (Chronic ~03/2023) MRI of the brain consistent with small vessel ischemia; needs further neurologic assessment. 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 BARON S/P kidney transplant (Chronic ~04/2020) at [facility], post op wound dehiscence requiring repeat surgery Glomerulonephritis due to vasculitis (Chronic) Immunosuppressed status (Chronic) Due to kidney transplant and P ANCA and MPO antibody, managed at [facility] with IVIG Marital conflict (Acute) Medical History Liver abscess due to bacteria (03/2023) Status post biopsy at [facility] via ERCP. Negative Gram stain performed while on antibiotics Hx of bacteremia (03/2023) Due to Klebsiella; treated with Levaquin and metronidazole for 4-week course History of posttraumatic stress disorder (PTSD) managed by [facility] Recurrent urinary tract infection h/o Klebsiella UTI Diverticulosis Skin lesion of face Closed fracture of patella (~1970) History of tobacco use quit in 1999 Goodpasture syndrome (03/09/16) 02/12. Renal failure. Pulmonary dysfunction. anti GBM nephropathy ANCA positive Colon polyp, hyperplastic 2005 Hyperlipidemia Pancreatitis Surgical History Wound dehiscence, internal operation (~04/2020) History of knee surgery Family History Mother , 83 Stroke Sister Breast cancer Brother Essential hypertension Heart disease Hyperlipidemia Maternal Grandfather Stroke Paternal Grandfather Personal history of malignant neoplasm LUNG Son Depression Daughter No problems noted. Father No problems noted. 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 Pets and animals: No Sexually active: No Do you think of yourself as: straight/heterosexual Current gender identity: male What is your relationship status?: How often do you talk on the phone with friends or family?: twice per week How often do you get together with friends or relatives?: twice per week How often do you attend gnosticist or orthodoxy services?: decline to answer Do you belong to any clubs or organized social groups?: no Panel score (0-1 are the most socially isolated patients): 1 What type of physical activity do you participate in: other Duration: < 15 minutes/day Frequency: decline to answer Fiona/Jew: None Special fiona needs: No Seatbelt use: sometimes Drive intox or ride w/intox pizza driver: No Do you feel safe at home: Yes Do you feel safe in your relationship?: Yes Additional Social history: lives alone Meds Allergies and Home Medications Allergies Allergy/AdvReac Type Severity Reaction Status Date / Time Penicillins Allergy Severe CARDIAC Unverified 10/27/24 20:45 ARREST ibuprofen AdvReac Intermediate its hard Verified 10/27/24 20:45 on my kidneys lisinopril AdvReac Intermediate cough Unverified 10/27/24 20:45 Home Medications ?Medication ?Instructions ?Recorded ?Confirmed ?Type famotidine 20 mg tablet (Pepcid) 20 mg PO DAILY 02/13/21 10/27/24 History ergocalciferol (vitamin D2) 1,250 1,250 mcg PO QWEEK 11/24/22 10/27/24 History mcg (50,000 unit) capsule mycophenolate sodium 180 mg 180 mg PO DAILY #90 tabs 08/24/23 10/27/24 Rx tablet,delayed release metformin 500 mg tablet 500 mg PO BID 02/29/24 10/27/24 History hydrocortisone 1 % topical cream 1 applic topical BID PRN 04/10/24 10/27/24 History prednisone 5 mg tablet 5 mg PO DAILY 04/10/24 10/27/24 History clopidogrel 75 mg tablet (Plavix) 75 mg PO DAILY 06/15/24 10/27/24 History atorvastatin 20 mg tablet (Lipitor) 40 mg PO QHS 10/27/24 10/27/24 History carvedilol 12.5 mg tablet 12.5 mg PO BID 10/27/24 10/27/24 History cephalexin 500 mg capsule 500 mg PO TID 10/27/24 10/27/24 History diltiazem HCl 120 mg 120 mg PO Q12H 10/27/24 10/27/24 History capsule,extended release 24 hr, controlled (DILT-XR) tacrolimus 0.5 mg capsule, 1 mg PO DAILY 10/27/24 10/27/24 History immediate-release Exam Narrative Exam Narrative: General: Patient appears appropriate for age and somewhat disheveled, pressured speech with continuous conversation sometimes incongruent, in no acute distress and alert and oriented at least to person and place. HEENT: Normocephalic, eyes with pupils equal and reactive to light symmetrically, extraocular movement intact and sclera anicteric. Poor dentition with missing and discolored teeth. Dry oral mucosa. Neck: Supple without JVD. Back: Kyphotic without CVA tenderness. Lungs: Fair aeration and clear to auscultation percussion with no focalizing rales or rhonchi and no expiratory wheeze. Bronchovesicular breath sounds diffusely with normal expiratory phase. Heart: Regular rate and rhythm with no appreciable murmur or gallop but distant heart sounds. Abdomen: Normal contour with abdomen soft palpation except for firm mass in the right pelvic region which is his renal transplant. No tenderness, guarding or rebound. Bowel sounds are positive in all quadrants. Genitalia/rectal: Exam deferred. Extremities: No clubbing, cyanosis or grossly pitting edema. Good cap refill. Skin: Pale, warm and dry. Neuro: Cranial nerves II through XII gross intact, no focalizing motor deficits the patient states that his right leg is slightly weaker as residual of his CVA. He was not made to get out of bed and Romberg test was not performed. DTRs appear physiologic and symmetrical. No Babinski. No tremor. Psych: Slightly anxious with pressured speech and wandering conversation at times. Normal mood. No abnormal thought processes. Remote memory intact with recent memory less intact with patient's history changing at times. Results Imaging Imaging Studies: Exam: CT Chest Without Contrast; Diagnostic Exam date and time: 10/27/2024 10:58 PM Age: 74 years old Clinical indication: Other: Low back pain; Prior surgery; Surgery date: 6+ months; Surgery type: Kidney transplant x 2006; Additional info: Sepsis workup, lower back pain, kidney transplant TECHNIQUE: Imaging protocol: Diagnostic computed tomography of the chest without contrast. 3D rendering (Not supervised by radiologist): MIP and/or 3D reconstructed images were created by the technologist. COMPARISON: CT CHEST/ABD/PEL WO 03/14/2023 3:34 AM FINDINGS: Lungs: Severe pulmonary emphysema. Extensive lung bullae. Mild bronchiectasis consistent with a component of COPD. No acute lung infiltrates. No pulmonary edema. Pleural spaces: No pleural effusion. No pneumothorax. Incidental note of a posterior left hemithorax subpleural lipoma measuring 27 x 16 mm. Series 4: Image 63. Heart: Normal heart size. No pericardial effusion. Moderate coronary artery atherosclerotic calcium. Mitral and aortic valve calcifications. Lymph nodes: Unremarkable. No enlarged lymph nodes. Vasculature: Thoracic aorta atherosclerotic calcium. No aneurysmal change. Bones/joints: Degenerative thoracic spine changes. No acute skeletal findings. Soft tissues: Chest wall soft tissues are unremarkable. IMPRESSION: 1. Diffuse emphysematous lung change. 2. No acute infiltrates or edema. 3. No acute pleural change. 4. Coronary artery atherosclerotic calcium and valvular calcification. PROCEDURE INFORMATION: Exam: CT Abdomen And Pelvis Without Contrast Exam date and time: 10/27/2024 10:58 PM Age: 74 years old Clinical indication: Other: Low back pain; Prior surgery; Surgery date: 6+ months; Surgery type: Kidney transplant x 2006; Additional info: Sepsis workup, lower back pain, kidney transplant TECHNIQUE: Imaging protocol: Computed tomography of the abdomen and pelvis without contrast. 3D rendering (Not supervised by radiologist): MIP and/or 3D reconstructed images were created by the technologist. COMPARISON: MR ABDOMEN WO 12/30/2023 9:25 AM FINDINGS: Liver: The liver is normal in size, contour and attenuation. A hepatic dome 10 mm low-attenuation focus is most consistent with a small benign cyst. No change since 2022. Gallbladder and biliary ducts: Partially contracted gallbladder. No acute change. No gallstones. Pancreas: Mild pancreatic atrophy. Nonspecific low-attenuation focus of the pancreatic head is likely a cyst. 21 x 15 mm. Series 5: Image 75. This appears to represent a change since 03/14/2023. An additional lesion is suggested in the uncinate process of the pancreas measuring 16 x 13 mm. Series 5: Image 79. This also appears to represent a new finding. There is also a lesion of the pancreatic tail with low attenuation measuring 27 x 24 mm. Series 5: Image 63. This is suggested on prior study from 2022 but appears more prominent on current evaluation. There is also an enlarging anterior peripancreatic fluid collection measuring 4.2 x 3.2 cm on series 5: Image 68. This is contiguous with the pancreas and adjacent to the pancreatic body and tail junction. This does show some calcification of its posterior wall. This has increased in size significantly since previous study at which time it was 23 x 15 mm. No peripancreatic inflammation. A prior abdominal MRI 06/30/2023 does show multiple pancreatic cystic lesions appearing to correlate with the current findings. These are considered benign by prior MRI evaluation. Spleen: The spleen is normal in size, contour and attenuation. The spleen is normal in size, contour and attenuation. Adrenal glands: The adrenal glands are normal in size and contour bilaterally. Kidneys and ureters: Mild renal atrophy. No acute changes. Hyperdense focus in the posterior left renal parenchyma measuring 6 mm is most likely a hyperdense cyst. A low-attenuation focus in the posterior right renal parenchyma is 17 mm. This was present previously and is most consistent with a benign cyst.No further imaging follow-up of the renal cysts is recommended based on MIPS criteria. Right pelvic renal transplant is visible. Unremarkable in appearance. No obstructive uropathy. No inflammatory features. Stomach and bowel: Gastric morphology is unremarkable. No edema. No gastric outlet obstruction. Small bowel loops are normal in course and caliber. There is no mucosal edema or bowel wall thickening. No obstructive features. Large bowel is unremarkable in course and caliber. No edema or inflammatory features. Formed feces. No obstruction. Appendix: No evidence of appendicitis. Intraperitoneal space: No free fluid in the abdomen or pelvis. No free air. Vasculature: Aortoiliac atherosclerotic calcium. Bilateral common iliac arteries with fusiform aneurysmal dilatation at 2 cm on right and 2.2 cm on left. Lymph nodes: Unremarkable. No enlarged lymph nodes. Urinary bladder: Urinary bladder is unremarkable in appearance. No wall thickening. No intravesicular calculi. No intravesicular gas. Reproductive: Moderate prostatic enlargement. Recommend clinical correlation. Bones/joints: Degenerative lumbar spine. No acute skeletal change. Old mild compression fracture of T12. Soft tissues: Abdominal wall soft tissues are unremarkable. IMPRESSION: 1. Multiple pancreatic lesions involving the head, uncinate process, tail, and body region. No acute inflammatory change. Interval changes with some lesions enlarging since CT 03/14/2023. There is a previous MRI noted 12/30/2023. This does show multiple pancreatic cystic lesions which appear benign and seem to correlate with the current CT identified lesions. 2. Mild bilateral renal atrophy. No acute change. 3. No bowel obstruction or edema. 4. Right pelvic renal transplant is unremarkable in appearance. 5. Prostatic enlargement. 6. No free fluid. No free air. 7. No bowel obstruction or edema. 8. Degenerative lumbar spine features. Exam: XR Chest Exam date and time: 10/27/2024 9:52 PM Age: 74 years old Clinical indication: Other: R/O pulmonary edema TECHNIQUE: Imaging protocol: Radiologic exam of the chest. Views: 1 view. COMPARISON: CR XR CHEST 2V PA LATERAL 06/09/2024 1:34 PM FINDINGS: Lungs: Chronic increased interstitial lung markings. Stable since 06/09/2024. These features are consistent with interstitial fibrosis or chronic interstitial disease. There are no acute regions of airspace consolidation. No jyoti pulmonary edema. Possibility of mild interstitial edema or CHF is not excluded. Pleural spaces: Blunted costophrenic angles bilaterally suggesting minor pleural effusions. Heart/Mediastinum: Normal heart size. Bones/joints: Degenerative thoracic spine. IMPRESSION: 1. Chronic appearing increased interstitial lung markings. Superimposed mild interstitial edema or CHF is not excluded. 2. Minor bilateral pleural effusions. 3. Normal heart size. 4. No focal lung consolidation or infiltrates. Labs 10/28/24 05:50 10/28/24 05:50 Labs: Laboratory Results - last 24 hr 10/27/24 10/27/24 10/27/24 21:22 21:50 22:30 WBC 18.25 H RBC 4.80 Hgb 14.1 Hct 42.9 MCV 89 MCH 29.4 MCHC 32.9 RDW 12.8 Plt Count 175 MPV 9.8 Immature Gran % 0.7 Neutrophils % 83.0 Lymphocytes % 8.8 Monocytes % 7.3 Eosinophils % 0.1 Basophils % 0.1 Nucleated RBC % 0.0 Absolute Neutrophils 15.15 H Absolute Lymphocytes 1.61 Absolute Monocytes 1.33 H Absolute Eosinophils 0.02 Absolute Basophils 0.02 VBG Lactate 1.5 Sodium 138 Potassium 3.7 Chloride 105 Carbon Dioxide 24.6 Anion Gap 8.4 BUN 24 H Creatinine 1.0 Est GFR (CKD-EPI 2020) 78.49 Glucose 207 H Calcium 9.8 Total Bilirubin 0.8 AST 12 L ALT 19 Alkaline Phosphatase 95 NT-Pro-B Natriuret Pep 657 H Total Protein 6.5 Albumin 2.8 L Urine Color Yellow Urine Clarity Clear Urine pH 6.0 Ur Specific [place] 1.020 Urine Protein 30 H Urine Ketones Negative Urine Blood Moderate H Urine Nitrite Negative Urine Bilirubin Negative Urine Urobilinogen 0.2 Ur Leukocyte Esterase Negative Urine RBC 10-20 H Urine WBC Negative Ur Epithelial Cells Rare Urine Crystals Negative Urine Bacteria Rare Urine Casts Negative Urine Mucus Negative Urine Other Few [place] Ur Culture Indicated? No Urine Glucose Negative COVID-19 Source Nasopharynx SARS-CoV-2 (PCR) Negative Influenza Type A (PCR) Negative Influenza Type B (PCR) Negative RSV (PCR) Negative Last Vital Signs Temp 36.5 C 10/27/24 20:47 Pulse 73 10/27/24 23:18 Resp 10 L 10/27/24 23:19 BP 135/55 L 10/27/24 20:47 Pulse Ox 92 10/27/24 23:18 Time Spent Time spent with Patient: >75 minutes Time was spent: preparing to see the patient(eg.review tests), obtaining and/or reviewing separately otained hiistory, ordering medications,tests, procedures, indepentently interpreting results and care coordination
[2024-10-28] VITALS (8 sets, daily range): BP systolic 116–156; BP diastolic 45–97; PULSE 64–80; RESP 12–19; TEMP 36.3–36.9; O2SAT 94–97
--- NOTE | 2024-10-28 00:58 | W.PC.ACHO ---
Registration Status: Primary Language: Preferred Language: ED Information & Data Chief Complaint Urinary 10/27/24 21:22 Triage Note Pt BIBEMS for extreme 10/27/24 20:40 weakness and inability to ambulate independently. Seen for a UTIx3 days ago per EMS and currently being treated w/ abx. Hx of kidney transplant. Pt disoriented but c/o abd pain and not knowing when he has to pee Medical / Surgical History (Last Reviewed 10/27/24 @ 23:51 by Alhaji Pearson) Liver abscess due to bacteria (03/2023) Hx of bacteremia (03/2023) History of posttraumatic stress disorder (PTSD) Recurrent urinary tract infection Diverticulosis Skin lesion of face Closed fracture of patella (~1970) History of tobacco use Goodpasture syndrome (03/09/16) Colon polyp, hyperplastic Hyperlipidemia Pancreatitis (Last Reviewed 10/27/24 @ 23:51 by Alhaji Pearson) Wound dehiscence, internal operation (~04/2020) History of knee surgery Most Recent Vital Signs Temperature 36.5 C 10/27/24 20:47 Temperature Source Oral 10/27/24 20:47 Pulse 73 10/27/24 23:18 Respiratory Rate 10 L 10/27/24 23:19 Blood Pressure 135/55 L 10/27/24 20:47 Blood Pressure Position Sitting 10/27/24 20:47 Pulse Oximetry 92 10/27/24 23:18 Oxygen Delivery Method Room Air 10/27/24 20:47 Oxygen Flow Rate 0 10/27/24 20:40 Pain Level 0 10/27/24 20:47 Allergies Penicillins Allergy (Severe, Unverified 10/27/24 20:45) CARDIAC ARREST ibuprofen Adverse Reaction (Intermediate, Verified 10/27/24 20:45) its hard on my kidneys lisinopril Adverse Reaction (Intermediate, Unverified 10/27/24 20:45) cough Precautions Isolation Standard precaution 10/27/24 20:47 IV IV Catheter Type [Right Saline Lock Antecubital] IV Catheter Gauge [Right 20 Antecubital] Diagnostics 10/27/24 10/27/24 10/27/24 Range/Units 22:30 21:50 21:22 WBC 18.25 H (4.4-10.8) 10^3/uL RBC 4.80 (4.36-5.78) 10^6/uL Hgb 14.1 (13.5-17.5) g/dL Hct 42.9 (40.0-50.0) % MCV 89 (80-95) fL MCH 29.4 (27.0-33.0) pg MCHC 32.9 (32.0-36.0) % RDW 12.8 (11.8-14.1) % Plt Count 175 (130-400) 10^3/uL MPV 9.8 (8.0-11.0) fL Immature Gran % 0.7 % Neutrophils % 83.0 % Lymphocytes % 8.8 % Monocytes % 7.3 % Eosinophils % 0.1 % Basophils % 0.1 % Nucleated RBC % 0.0 (0.0-0.3) % Absolute Neutrophils 15.15 H (1.2-6.7) 10^3/uL Absolute Lymphocytes 1.61 (1.2-3.4) 10^3/uL Absolute Monocytes 1.33 H (0.1-0.8) 10^3/uL Absolute Eosinophils 0.02 (0.0-0.7) 10^3/uL Absolute Basophils 0.02 (0.0-0.2) 10^3/uL VBG Lactate 1.5 (<or=2.0) mmol/L Sodium 138 (136-145) mmol/L Potassium 3.7 (3.5-5.1) mmol/L Chloride 105 (98-107) mmol/L Carbon Dioxide 24.6 (21.0-32.0) mmol/L Anion Gap 8.4 (3-11) mmol/L BUN 24 H (7-18) mg/dL Creatinine 1.0 (0.70-1.30) mg/dL Est GFR (CKD-EPI 2020) 78.49 (mL/min/1.73m2) Glucose 207 H (74-106) mg/dL Calcium 9.8 (8.5-10.1) mg/dL Total Bilirubin 0.8 (0.2-1.0) mg/dL AST 12 L (15-37) U/L ALT 19 (16-63) U/L Alkaline Phosphatase 95 (46-116) U/L NT-Pro-B Natriuret Pep 657 H (<300) pg/mL Total Protein 6.5 (6.4-8.2) g/dL Albumin 2.8 L (3.4-5.0) g/dL Urine Color Yellow (Yellow) Urine Clarity Clear (Clear) Urine pH 6.0 (5-8) Ur Specific [place] 1.020 (1.005-1.025) Urine Protein 30 H (Neg-Trace) mg/dL Urine Ketones Negative (Negative) mg/dL Urine Blood Moderate H (Negative) Urine Nitrite Negative (Negative) Urine Bilirubin Negative (Negative) Urine Urobilinogen 0.2 (Up to 0.2) mg/dL Ur Leukocyte Esterase Negative (Negative) Urine RBC 10-20 H (0-2) HPF Urine WBC Negative (0-5) HPF Ur Epithelial Cells Rare (Negative) HPF Urine Crystals Negative (Negative) HPF Urine Bacteria Rare (Negative) HPF Urine Casts Negative (Negative) LPF Urine Mucus Negative (Negative) Urine Other Few [place] (Negative) Ur Culture Indicated? No Urine Glucose Negative (Negative) mg/dL Tacrolimus Pending COVID-19 Source Nasopharynx SARS-CoV-2 (PCR) Negative (Negative) Influenza Type A (PCR) Negative (Negative) Influenza Type B (PCR) Negative (Negative) RSV (PCR) Negative (Negative) 10/27/24 22:30 Urine Culture - Pending Urine - Cath Straight 10/27/24 22:00 Blood Culture - Pending Blood 10/27/24 21:22 Blood Culture - Pending Blood Izklm-to-Uofd Documentation Fingerstick Glucose Start: 10/27/24 21:03 Freq: .Stat Status: Active Protocol: Activity Type Activity Date Activity User E-sign Co-sign Detail Recorded Client Recorded Date Recorded By Document 10/27/24 23:42 BKG DAEMON(3) NVT-BG05 10/27/24 23:43 BKG DAEMON(4) Intake and Output - 24 Hour Total 10/27/24 20:30 thru 10/27/24 22:55 Intake Total 550 Output Total 400 Balance 150 Weight 80.739 kg Intake: IV 550 Output: Urine 400 Other: Urine Color Straw Urine Appearance Cloudy Sediment Comment WILL ATTEMPT TO ENCOURAGE PT TO VOID W/O I&O CATH. PT DENIES NEEDING TO VOID DESPITE BLADDER SCAN. CONSTRUCTION PRODUCER DENIS AWARE Urinary Catheter Urinary Catheter Date of 10/27/24 Insertion [Straight] Time of insertion [Straight] 22:27 Falls Risk Assessment History of Falls Previous History 10/27/24 20:47 Contributing Factors Confusion,Impairments, 10/27/24 20:47 Incontinence Ambulatory Aids Uses ambulatory device + 10/27/24 20:47 Tubes/Lines None 10/27/24 20:47 Gait Evaluation W/any additional score 10/27/24 20:47 Cognition Cognitive impairment 10/27/24 20:47 Fall Total Score 89 10/27/24 20:47 Level of Risk Maximum Risk 10/27/24 20:47 Problems (Last Reviewed 10/27/24 @ 23:51 by Alhaji Pearson) GERD (gastroesophageal reflux disease) (Chronic) Leukocytosis (leucocytosis) (Acute) Acute dehydration (Acute) Hypertension (Chronic) Vascular dementia (Chronic ~03/2023) DM II (diabetes mellitus, type II), controlled (Chronic) Hyperlipidemia (Chronic) S/P kidney transplant (Chronic ~04/2020) Immunosuppressed status (Chronic) v v v v v v v v v Sending and/or Receiving Nurses: Please use comment section below to note any information pertinent to the patient hand-off not included above. Information / Comments: Report taken from ED RN Sarahi,, patient brought in mildly confused, covered by feces, lives alone and was found by ex on the floor. Has history of UTI, type 2 DM; had kidney transplant last yr.2019. Started to take Cipro on the for UTI., Been straight catgh in the ED, has bloody discharge in his penis.Will come up w/ O2 at 2L/NC. Latest Sat 95%. All questions answered appropriately. Report received from:
[2024-10-28] MEDS: Atorvastatin 40 MG TAB PO ×2 (03:25→20:31)
[2024-10-28] MEDS: Enoxaparin 40 MG/0.4 ML SYR SC (03:26)
[2024-10-28 06:35] LABS: HCT 40.8 % (40.0-50.0); HGB 13.1 g/dL (13.5-17.5); MCH 28.9 pg (27.0-33.0); MCHC 32.1 % (32.0-36.0); MCV 90 fL (80-95); Platelet Count 178 10^3/uL (130-400); RBC 4.53 10^6/uL (4.36-5.78); RDW 12.8 % (11.8-14.1); RDW-SD 42.1 fL; WBC 17.36 10^3/uL (4.4-10.8)
[2024-10-28] MEDS: Normal Saline 1,000 ML 125 ML IV ×2 (07:04→18:10)
[2024-10-28 07:09] LABS: ALT 17 U/L (16-63); AST 13 U/L (15-37); Albumin 2.6 g/dL (3.4-5.0); Alkaline Phosphatase 89 U/L (46-116); Anion Gap 9.7 mmol/L (3-11); BUN 24 mg/dL (7-18); Bilirubin, Total 0.6 mg/dL (0.2-1.0); CO2 24.3 mmol/L (21.0-32.0); CREATININE 1.1 mg/dL (0.70-1.30); Calcium 9.9 mg/dL (8.5-10.1); Chloride 108 mmol/L (98-107); Estimated GFR 70.01 (mL/min/1.73m2); Glucose 139 mg/dL (74-106); Magnesium 1.5 mg/dL (1.8-2.4); Potassium 3.6 mmol/L (3.5-5.1); Sodium 142 mmol/L (136-145); Total Protein 6.1 g/dL (6.4-8.2)
[2024-10-28 07:12] LABS: PHOSPHORUS 3.1 mg/dL (2.6-4.7); TSH (W/Ref FT4) 1.55 uIU/mL (0.36-3.74)
--- NOTE | 2024-10-28 08:56 | INITIAL_ITS ---
Date of service: 10/28/24 Time of Service: 14:05 Care Management Initial Assmt Initial Assessment Reason for Hospitalization: Dehydration, NIDDM, leukocytosis Functional Status/Living Situation Patient Presentation: Gamaliel was lying in bed with his eyes closed when CM arrived. He presented to the ED for evaluation after his and daughter called EMS concern for his weakness. He states that he is living alone in a single family home, in [place]. Per Gamaliel, he stays on the ground floor of his home and has 3 steps for entry. Ha is also living in [place], but not in the same home. Gamaliel received MOW on [employer] and utilizes [employer], as his primary way of transportation. Gamaliel is retired now, but he was in the [employer] and now receives care from the ID in both [facility] and [place]. Gamaliel states that he has previously had home health, but he is now discharged from their services. CM will continue to follow. Town of Residence: [place] Resides with: Alone Significant Other/Family: Local Natural Supports: daughter - Nancy Employment Status: Retired ([employer] ) and Other ([employer] connected) Instrumental Activities of Daily Living (ADLs): Independent Medications Medication Management: No Issues/Barriers identified Physical Functioning/Mobility Assistive Device: Cane, Walker Advance Directives Advance Directives: Do you have an Advance Directive: Y 10/27/24 20:45 AD On File at [facility]: Y 10/27/24 20:45 Date Asked 10/27/24 10/27/24 20:45 AD Date Reviewed 10/27/24 10/27/24 20:45 COLST On File at [facility] Yes 10/27/24 20:45 COLST Date Scanned Code Status Resuscitation Status DNR Portal Pt does not currently have a portal and education provided: Yes Insurance Coverage/Financial Issues Insurance: Medicare Part A & B - [id number] Care Team Visit Care Team Role Provider Type Shannan Stevens MD Primary Care Provider [facility] STAFF PHYSICIAN Sindhu Willingham Emergency Provider NURSE PRACTITIONER Alhaji Pearson Admit Provider NON-[facility] STAFF PHYSICIAN Attending Provider Discharge Potential Discharge Needs: PCP F/U Appt Anticipated Barriers to Discharge: Medical Status Patient/Family Education Needs: Review discharge instructions, discuss Ask Me Three Transportation: Private vehicle Plan: Anticipate Gamaliel will go to SNF at this time, if progresses may be able to go home with HHPT per PT recommendation, once medically ready. He will follow up with his community providers and continue per his discharge plan of care. He will likely transport via private vehicle vs [facility]. CM will continue to follow. Social Determinants of Health Screening Social Determinants of health last assessed in clinic: 10/28/24 Will the Patient Participate in the Screening?: Yes Do you worry about having a steady place to live?: yes What is your living situation today?: I have housing today, but am worried about losing it Problems where you live: pests such as bugs, ants or mice In the past 12 months, have you had to go without electric, gas, oil or water in your home?: no 1. Within the past 12 months, we worried whether our food would run out before we got money to buy more.: Never true 2. Within the past 12 months, the food we bought just didn't last and we didn't have money to get more.: Never true Has lack of transportation kept you from medical appointments or from doing things needed for daily living?: no Has anyone in your life made you feel unsafe or unsupported?: no How hard is it for you to pay for the very basics like food, housing, medical care, and heating? Would you say it is:: Not hard at all Do you want help finding or keeping work or a job?: I do not need or want help If for any reason you need help with day-to-day activities such as bathing, preparing meals, shopping, managing finances, etc., do you get the help you need?: I don?t need any help How often do you feel lonely or isolated from those around you?: Rarely Do you speak a language other than British at home?: No Does the patient want assistance with any of the above?: No Comments: patient claims of having mice in the house, student accounts coordinator came before. Health Related Social Needs Health related social needs: inadequate housing (Z59.1), housing instability, housed, with risk of homelessness (Z59.811) and feeling lonely/isolated (Z60.8) Health related social needs details: Patient thinks of no help needed for now. PFSH All Active Problems GERD (gastroesophageal reflux disease) (Chronic) Leukocytosis (leucocytosis) (Acute) Acute dehydration (Acute) Confused but orients easily (Acute) Polycythemia (Acute) Lower urinary tract symptoms (LUTS) (Acute) Hypertension (Chronic) Acute CVA (cerebrovascular accident) (Chronic) Iliac artery aneurysm, left (Acute) Pancreatic cyst (Acute ~02/2023) noted on CT abdomen pelvis; fullness of pancreatic head. Repeat MRI due in August 2023 Vascular dementia (Chronic ~03/2023) MRI of the brain consistent with small vessel ischemia; needs further neurologic assessment. 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 BARON S/P kidney transplant (Chronic ~04/2020) at [facility], post op wound dehiscence requiring repeat surgery Glomerulonephritis due to vasculitis (Chronic) Immunosuppressed status (Chronic) Due to kidney transplant and P ANCA and MPO antibody, managed at [facility] with IVIG Marital conflict (Acute) Medical History Liver abscess due to bacteria (03/2023) Status post biopsy at [facility] via ERCP. Negative Gram stain performed while on antibiotics Hx of bacteremia (03/2023) Due to Klebsiella; treated with Levaquin and metronidazole for 4-week course History of posttraumatic stress disorder (PTSD) managed by ID clinic Recurrent urinary tract infection h/o Klebsiella UTI Diverticulosis Skin lesion of face Closed fracture of patella (~1970) History of tobacco use quit in 1999 Goodpasture syndrome (03/09/16) 02/12. Renal failure. Pulmonary dysfunction. anti GBM nephropathy ANCA positive Colon polyp, hyperplastic 2005 Hyperlipidemia Pancreatitis Surgical History Wound dehiscence, internal operation (~04/2020) History of knee surgery Family History Mother , 83 Stroke Sister Breast cancer Brother Essential hypertension Heart disease Hyperlipidemia Maternal Grandfather Stroke Paternal Grandfather Personal history of malignant neoplasm LUNG Son Depression Daughter No problems noted. Father No problems noted. 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 Pets and animals: No Sexually active: No Do you think of yourself as: straight/heterosexual Current gender identity: male What is your relationship status?: How often do you talk on the phone with friends or family?: twice per week How often do you get together with friends or relatives?: twice per week How often do you attend advent or mu-ism services?: decline to answer Do you belong to any clubs or organized social groups?: no Panel score (0-1 are the most socially isolated patients): 1 What type of physical activity do you participate in: other Duration: < 15 minutes/day Frequency: decline to answer Fiona/Caodaism: None Special fiona needs: No Seatbelt use: sometimes Drive intox or ride w/intox tractor driver teamster: No Do you feel safe at home: Yes Do you feel safe in your relationship?: Yes Additional Social history: lives alone Readmission Within the Past 30 Days Yes or No: No Anticipated HH Services Anticipated HH Services at Discharge [facility].
[2024-10-28] MEDS: Clopidogrel 75 MG TAB PO (09:02)
[2024-10-28] MEDS: dilTIAZem CD 120 MG CAPCR PO ×2 (09:03→20:30)
[2024-10-28] MEDS: predniSONE 5 MG TAB PO (09:03)
[2024-10-28] MEDS: Famotidine 20 MG TAB PO (09:03)
[2024-10-28] MEDS: Tacrolimus 0.5 MG CAP 1 MG PO (09:03)
[2024-10-28] MEDS: Carvedilol 12.5 MG TAB PO ×2 (09:03→20:31)
[2024-10-28 11:48] LABS: Creatine Kinase 51 U/L (39-308)
[2024-10-28] MEDS: Insulin Aspart 300 UNITS/3 ML PEN SC ×2 (11:59→22:45)
--- NOTE | 2024-10-28 13:13 | IN_ITS ---
PT Notes Visit Reasons: Dehydration, NIDDM, Leukocytosis Physical Therapy Inpatient Initial Evaluation Date: 10/28/2024 Referring Doctor: Dr Pearson PT Orders: PT CONSULT: Precautions: Fall Risk, standard, Right hemiparesis, Patient Profile/Admitting Diagnosis: Patient is 74-year-old male presented to [facility] ED with increased confusion. Patient recently 3 days prior to admission diagnosed with UTI and was started on antibiotics. In the ED patient diagnosed with dehydration leukocytosis and polycythemia. Patient admitted to MedSurg unit for medical management and monitoring with PT consult placed PMHX: GERD (gastroesophageal reflux disease) (Chronic) Leukocytosis (leucocytosis) (Acute) Acute dehydration (Acute) Confused but orients easily (Acute) Polycythemia (Acute) Lower urinary tract symptoms (LUTS) (Acute) Hypertension (Chronic) Acute CVA (cerebrovascular accident) (Chronic) Iliac artery aneurysm, left (Acute) Pancreatic cyst (Acute ~02/2023) noted on CT abdomen pelvis; fullness of pancreatic head. Repeat MRI due in August 2023Vascular dementia (Chronic ~03/2023) MRI of the brain consistent with small vessel ischemia; needs further neurologic assessment.DM II (diabetes mellitus, type II), controlled (Chronic) managed with low dose metforminExposure to potentially hazardous substance (Chronic) Agent OrangeANCA-positive vasculitis (Acute 03/09/16) Essential hypertension (Acute 05/01/13) Hyperlipidemia (Chronic) Non-alcoholic fatty liver disease (Acute) Tubular adenoma (Acute) 06/30/15; DR. BARON S/P kidney transplant (Chronic ~04/2020) at [facility], post op wound dehiscence requiring repeat surgeryGlomerulonephritis due to vasculitis (Chronic) Immunosuppressed status (Chronic) Due to kidney transplant and P ANCA and MPO antibody, [facility] with IVIGMarital conflict (Acute) Medical History Liver abscess due to bacteria (03/2023) Status post biopsy at [facility] via ERCP. Negative Gram stain performed while on antibioticsHx of bacteremia (03/2023) Due to Klebsiella; treated with Levaquin and metronidazole for 4-week courseHistory of posttraumatic stress disorder (PTSD) managed by [facility] clinicRecurrent urinary tract infection h/o Klebsiella UTIDiverticulosis Skin lesion of face Closed fracture of patella (~1970) History of tobacco use quit in 1999 Goodpasture syndrome (03/09/16) 02/12. Renal failure. Pulmonary dysfunction. anti GBM nephropathy ANCA positive Colon polyp, hyperplastic 2006Hyperlipidemia Pancreatitis Surgical History Wound dehiscence, internal operation (~04/2020) History of knee surgery Social History/Home Situation:He states that he is living alone in a single family home, in [place]. Per Gamaliel, he stays on the ground floor of his home and has 3 steps for entry. Leland is also living in [place], but not in the same home. Gaamliel received MOW on [employer] and utilizes [employer], as his primary way of transportation. Patient reports he uses a walker at home for ambulation and sleeps on a futon. Equipment Owned/DME: 2 canes, FWW Subjective: Patient reports he was feeling well until a week ago. Patient reports he rolled off the futon recently. Objective: [] General Observation: Patient seated in bedside chair with bilateral lower extremities elevated IV infusing left upper extremity, blood noted on gown JOSE R [place] notified. Blood appears to be from recent catheterization. Mental Status: Alert and oriented to person and place, confusion with events that led to hospitalization Pain: Flank pain 3/10 ROM: [] Right Upper Extremity: WNL Left Upper Extremity: WNL Right Lower Extremity: WFL dorsiflexion to neutral Left Lower Extremity: WFL dorsiflexion to neutral Strength: [] Right Upper Extremity: Grossly 5/5 Left Upper Extremity: Grossly 5/5 Right Lower Extremity:Hip flexion: 3- /5; hip abduction: 3- /5; hip extension: 3-/5; knee extension: 3-/5; knee flexion: 3- /5 ankle DF: 3- /5 ; ankle PF: 3- /5 Left Lower Extremity: Hip flexion: 3 /5; hip abduction: 3- /5; hip extension: 3- /5; knee extension: 3/5; knee flexion: 3 /5 ankle DF: 3 /5 ; ankle PF: 3/5 Sensation: Intact Bed Mobility/Transfers: Supine to sit mod assist of 1 Sit to supine min assist of 1 Sit to stand mod assist of 2 Stand to sit mod assist of 2 Chair to bed mod assist of 2 with FWW Gait: Mod assist x 2 with FWW 5 steps bilateral knee instability requiring assistance to sustain knee extension at mid stance Balance: [] Static Sitting: Good Dynamic Sitting: Fair Static Standing: Poor Dynamic Standing: Poor minus Special Tests: [] Mobility Limitations Standardized Measure [] [facility] AM-PAC 6 clicks Basic Mobility Inpatient Short Form: [] Raw Score: 14 CMS Score: 61.29% Informed Consent/Education: Patient instructed in purpose of PT consult. Assessment: Patient is 74-year-old male presenting with impaired motor coordination BLE right greater than left during functional transfers. Patient requiring mod assist of 2 to sustained upright posture with bilateral knee instability noted. Patient presents with clinical signs and symptoms consistent with current/admitting diagnoses that have resulted to mobility limitations, gait instability, generalized weakness, and impairment of motor control as demonstrated by the following impairment level findings: 1. Decreased strength/motor control to BUE/BLE major muscle groups 2. Impaired standing balance 3. Impaired functional activity tolerance 4. Impaired short-term memory/cognitive deficits confusion Impairments are contributing to the following functional limitations: 1. Inability to safely ambulate without assistive device 2. Increase completion time for mobility ADL performance 3. Increased fall risk 4. Impaired/declining transfer skills 5. Decline in bed mobility skills 6. Difficulty performing stairs without assistance Patient is assessed as a moderate complexity based on the following: History: 74-year-old male with impairment level findings, functional limitations, and past medical history as indicated above Examination: Demonstrable impairment in strength, balance, and mobility level with underlying impairments and functional limitations as documented above Presentation: Evolving Decision Making: Moderate Goals x 1 week: 1. Independent bed mobility 2. Independent transfers with least restrictive device 3. Independent ambulation with least restrictive device greater than 150 feet 4. Supervised 3 steps with rail to safely enter and exit home Plan of Care/Treatment Plan: 1-2x/day, 7 days/week x 1 week. Plan of care has been reviewed with the JACKET CHANGER providing the service under Physical Therapy direction. Initiate Physical Therapy intervention for strengthening, bed mobility, transfers, gait, stairs, balance training, use of assistive device. DISCHARGE RECOMMENDATIONS: Short-term SNF versus home with home health PT if able to progress TREATMENT CODE/TIME: 15975/[id number] Thank you for the opportunity to participate in the care of this patient. Abbie Mohr, PT [facility]
[2024-10-28] MEDS: MAGNESIUM SULFATE 2 GM/50 ML BAG IV_INF (13:22)
--- NOTE | 2024-10-28 13:53 | W.PM.PROGNOT ---
Date of Service Date of service: 10/28/24 Time of Service: 13:53 Assessment and Plan Assessment and plan (1) Acute dehydration: Status: Acute Assessment and plan: Continue IV hydration Monitor kidney functions and electrolytes closely (2) Leukocytosis (leucocytosis): Status: Acute Assessment and plan: Trending downward no source of infection has been identified but suspected possible UTI Blood cultures are pending (3) Urethral trauma: Status: Acute Assessment and plan: From straight cath in the emergency department has been bleeding no signs of urinary retention by bladder scan Will hold DVT prophylaxis in the setting of acute bleeding Consider holding Plavix if needed Would consider blood if needed Follow hemodynamics and H&H Urology consult placed (4) UTI (urinary tract infection): Status: Acute Assessment and plan: Was given ceftriaxone for concern of a partially treated UTI Will continue all blood cultures pending (5) Recurrent urinary tract infection: Assessment and plan: Patient is status post renal transplant 3 years ago with recurrent UTIs by diagnosis but he states he has had only 2 UTIs. He is a poor historian. He does have chronic leukocytosis but this seems slightly worse upon this presentation. (6) S/P kidney transplant: Status: Chronic Assessment and plan: Continue immunosuppressants while hospitalized. His renal functions have normalized. (7) Immunosuppressed status: Status: Chronic Assessment and plan: Continue immunosuppressants status post renal transplant but this does put him at risk for severe infection if not treated aggressively. (8) Hyperlipidemia: Status: Chronic Assessment and plan: Continue outpatient statin therapy. Patient is status post CVA. He is on Plavix as well. (9) DM II (diabetes mellitus, type II), controlled: Status: Chronic Assessment and plan: Hold metformin and check glucometers before meals and at bedtime with sensitive sliding scale coverage. (10) Hypertension: Status: Chronic Assessment and plan: Continue outpatient medical therapy adjusting as needed. (11) Vascular dementia: Status: Chronic Assessment and plan: This may be slightly exacerbated the patient's acute illness. Continue to monitor as we rehydrate watching for fluid overload. Continue Plavix and statin therapy. (12) GERD (gastroesophageal reflux disease): Status: Chronic Assessment and plan: Continue famotidine. (13) Acute CVA (cerebrovascular accident): Status: Chronic Assessment and plan: Patient had acute CVA in the left cerebral hemisphere May of this year by history. He is on Plavix and statin. He did have increased weakness and was crawling on the floor and his CPK will be checked with the patient on IV hydration already. Physical therapy should see patient to assess use of walker which he states he uses at home. discussed with Dr. Lopez Subjective Subjective Patient reports: tolerating liquids well, tolerating a regular diet and afebrile; denies shortness of breath Interval history since last seen: bleeding from urethra, no signs of urinary retention by bladder scan Exam Const General: cooperative and no acute distress Orientation: alert, awake and oriented x3 HENMT Head: normal to inspection Ears: hearing grossly normal bilaterally and external ears normal Mouth: oral mucosae normal Eyes General: appearance normal, both eyes and all related structures Neck Neck: normal visual inspection Resp Effort & Inspection: normal respiratory effort and able to speak in complete sentences Cardio Rate: regular rate Skin General skin exam: no rashes or lesions noted Neuro General: patient alert, patient awake and patient oriented x3 Motor: muscle tone normal throughout Extrem General: normal to inspection and full ROM Psych Appearance: grossly normal Affect: normal affect Objective Last Vital Signs Temp 36.7 C 10/28/24 11:57 Pulse 71 10/28/24 11:57 Resp 18 10/28/24 11:57 BP 141/72 H 10/28/24 11:57 Pulse Ox 97 10/28/24 11:57 Laboratory Results - last 24 hr 10/27/24 10/27/24 10/27/24 21:22 21:50 22:30 WBC 18.25 H RBC 4.80 Hgb 14.1 Hct 42.9 MCV 89 MCH 29.4 MCHC 32.9 RDW 12.8 Plt Count 175 MPV 9.8 Immature Gran % 0.7 Neutrophils % 83.0 Lymphocytes % 8.8 Monocytes % 7.3 Eosinophils % 0.1 Basophils % 0.1 Nucleated RBC % 0.0 Absolute Neutrophils 15.15 H Absolute Lymphocytes 1.61 Absolute Monocytes 1.33 H Absolute Eosinophils 0.02 Absolute Basophils 0.02 VBG Lactate 1.5 Sodium 138 Potassium 3.7 Chloride 105 Carbon Dioxide 24.6 Anion Gap 8.4 BUN 24 H Creatinine 1.0 Est GFR (CKD-EPI 2020) 78.49 Glucose 207 H Calcium 9.8 Phosphorus Magnesium Total Bilirubin 0.8 AST 12 L ALT 19 Alkaline Phosphatase 95 Creatine Kinase NT-Pro-B Natriuret Pep 657 H Total Protein 6.5 Albumin 2.8 L TSH Urine Color Yellow Urine Clarity Clear Urine pH 6.0 Ur Specific [place] 1.020 Urine Protein 30 H Urine Ketones Negative Urine Blood Moderate H Urine Nitrite Negative Urine Bilirubin Negative Urine Urobilinogen 0.2 Ur Leukocyte Esterase Negative Urine RBC 10-20 H Urine WBC Negative Ur Epithelial Cells Rare Urine Crystals Negative Urine Bacteria Rare Urine Casts Negative Urine Mucus Negative Urine Other Few [place] Ur Culture Indicated? No Urine Glucose Negative COVID-19 Source Nasopharynx SARS-CoV-2 (PCR) Negative Influenza Type A (PCR) Negative Influenza Type B (PCR) Negative RSV (PCR) Negative 10/28/24 05:50 WBC 17.36 H RBC 4.53 Hgb 13.1 L Hct 40.8 MCV 90 MCH 28.9 MCHC 32.1 RDW 12.8 Plt Count 178 MPV 10.0 Immature Gran % Neutrophils % Lymphocytes % Monocytes % Eosinophils % Basophils % Nucleated RBC % Absolute Neutrophils Absolute Lymphocytes Absolute Monocytes Absolute Eosinophils Absolute Basophils VBG Lactate Sodium 142 Potassium 3.6 Chloride 108 H Carbon Dioxide 24.3 Anion Gap 9.7 BUN 24 H Creatinine 1.1 Est GFR (CKD-EPI 2020) 70.01 Glucose 139 H Calcium 9.9 Phosphorus 3.1 Magnesium 1.5 L Total Bilirubin 0.6 AST 13 L ALT 17 Alkaline Phosphatase 89 Creatine Kinase 51 NT-Pro-B Natriuret Pep Total Protein 6.1 L Albumin 2.6 L TSH 1.55 Urine Color Urine Clarity Urine pH Ur Specific [place] Urine Protein Urine Ketones Urine Blood Urine Nitrite Urine Bilirubin Urine Urobilinogen Ur Leukocyte Esterase Urine RBC Urine WBC Ur Epithelial Cells Urine Crystals Urine Bacteria Urine Casts Urine Mucus Urine Other Ur Culture Indicated? Urine Glucose COVID-19 Source SARS-CoV-2 (PCR) Influenza Type A (PCR) Influenza Type B (PCR) RSV (PCR) Time Spent with Patient Time Spent with Patient: 35-49 minutes Time was spent: preparing to see the patient(eg.review tests), obtaining and/or reviewing separately otained hiistory, ordering medications,tests, procedures, indepentently interpreting results and counseling the patient
[2024-10-28] MEDS: cefTRIAXone 1 GM/50 ML BAG IVPB (22:20)
[2024-10-29] MEDS: Normal Saline 1,000 ML 125 ML IV ×3 (02:44→21:26)
[2024-10-29 03:11] VITALS: BP 147/80; PULSE 70; RESP 20; TEMP 36.4; O2SAT 97
[2024-10-29 06:21] LABS: HGB 12.2 g/dL (13.5-17.5); MCH 28.8 pg (27.0-33.0); MCHC 32.1 % (32.0-36.0); MCV 90 fL (80-95); MPV 9.9 fL (8.0-11.0); Platelet Count 170 10^3/uL (130-400); RBC 4.23 10^6/uL (4.36-5.78); RDW 12.7 % (11.8-14.1); RDW-SD 41.5 fL; WBC 14.73 10^3/uL (4.4-10.8)
[2024-10-29 06:52] LABS: ALT 19 U/L (16-63); AST 14 U/L (15-37); Albumin 2.4 g/dL (3.4-5.0); Alkaline Phosphatase 82 U/L (46-116); Anion Gap 7.1 mmol/L (3-11); BUN 19 mg/dL (7-18); Bilirubin, Total 0.4 mg/dL (0.2-1.0); CO2 24.9 mmol/L (21.0-32.0); CREATININE 0.9 mg/dL (0.70-1.30); Calcium 9.1 mg/dL (8.5-10.1); Chloride 108 mmol/L (98-107); Estimated GFR 89.07 (mL/min/1.73m2); Glucose 144 mg/dL (74-106); Magnesium 1.5 mg/dL (1.8-2.4); Potassium 3.7 mmol/L (3.5-5.1); Sodium 140 mmol/L (136-145); Total Protein 5.7 g/dL (6.4-8.2)
[2024-10-29 07:05] VITALS: BP 168/86; PULSE 68; RESP 14; TEMP 35.7; O2SAT 92
[2024-10-29] MEDS: Tacrolimus 0.5 MG CAP 1 MG PO (08:05)
[2024-10-29] MEDS: predniSONE 5 MG TAB PO (08:06)
[2024-10-29] MEDS: Insulin Aspart 300 UNITS/3 ML PEN SC (08:06)
[2024-10-29] MEDS: Clopidogrel 75 MG TAB PO (08:06)
[2024-10-29] MEDS: Famotidine 20 MG TAB PO (08:06)
[2024-10-29] MEDS: Carvedilol 12.5 MG TAB PO ×2 (08:06→20:53)
[2024-10-29] MEDS: dilTIAZem CD 120 MG CAPCR PO ×2 (08:06→20:53)
[2024-10-29] MEDS: MAGNESIUM SULFATE 2 GM/50 ML BAG IV_INF (11:00)
--- NOTE | 2024-10-29 12:17 | PDOC.CMIN ---
Date of service: 10/29/24 Time of Service: 15:14 Care Management Initial Assmt Initial Assessment Reason for Hospitalization: dehydration, altered mental status. Advance Directives Advance Directives: Do you have an Advance Directive: Y 10/27/24 20:45 AD On File at [facility]: Y 10/27/24 20:45 Date Asked 10/27/24 10/27/24 20:45 AD Date Reviewed 10/27/24 10/27/24 20:45 COLST On File at [facility] Yes 10/27/24 20:45 COLST Date Scanned Code Status Resuscitation Status DNR Insurance Coverage/Financial Issues Insurance: [place] - [id number] [place] Care Team Visit Care Team Role Provider Type Gretta Meléndez NP MD [facility] STAFF PHYSICIAN Shannan Stevens MD Primary Care Provider [facility] PHYSICIAN Latasha Garcia Other Providers OTHER David Palmer MD Other Providers [facility] ST[facility] PHYSICIAN Sindhu Willingham Emergency Provider NURSE PRACTITIONER Alhaji Pearson Admit Provider NON-[facility] STAFF PHYSICIAN Attending Provider Social Determinants of Health Screening Social Determinants of health last assessed in clinic: 10/28/24 Will the Patient Participate in the Screening?: Yes Do you worry about having a steady place to live?: yes What is your living situation today?: I have housing today, but am worried about losing it Problems where you live: pests such as bugs, ants or mice In the past 12 months, have you had to go without electric, gas, oil or water in your home?: no Has lack of transportation kept you from medical appointments or from doing things needed for daily living?: no Has anyone in your life made you feel unsafe or unsupported?: no How hard is it for you to pay for the very basics like food, housing, medical care, and heating? 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 Health Related Social Needs Health related social needs: inadequate housing (Z59.1), housing instability, housed, with risk of homelessness (Z59.811) and feeling lonely/isolated (Z60.8) Health related social needs details: Patient thinks of no help needed for now. PFSH All Active Problems Urethral trauma (Acute) UTI (urinary tract infection) (Acute) GERD (gastroesophageal reflux disease) (Chronic) Leukocytosis (leucocytosis) (Acute) Acute dehydration (Acute) Confused but orients easily (Acute) Polycythemia (Acute) Lower urinary tract symptoms (LUTS) (Acute) Hypertension (Chronic) Acute CVA (cerebrovascular accident) (Chronic) Iliac artery aneurysm, left (Acute) Pancreatic cyst (Acute ~02/2023) noted on CT abdomen pelvis; fullness of pancreatic head. Repeat MRI due in August 2023 Vascular dementia (Chronic ~03/2023) MRI of the brain consistent with small vessel ischemia; needs further neurologic assessment. 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 BARON S/P kidney transplant (Chronic ~04/2020) at [facility] [place], post op wound dehiscence requiring repeat surgery Glomerulonephritis due to vasculitis (Chronic) Immunosuppressed status (Chronic) Due to kidney transplant and P ANCA and MPO antibody, managed at [facility] with IVIG Marital conflict (Acute) Medical History Liver abscess due to bacteria (03/2023) Status post biopsy at [facility] via ERCP. Negative Gram stain performed while on antibiotics Hx of bacteremia (03/2023) Due to Klebsiella; treated with Levaquin and metronidazole for 4-week course History of posttraumatic stress disorder (PTSD) managed by [place] [facility] Recurrent urinary tract infection h/o Klebsiella UTI Diverticulosis Skin lesion of face Closed fracture of patella (~1970) History of tobacco use quit in 1999 Goodpasture syndrome (03/09/16) 02/12. Renal failure. Pulmonary dysfunction. anti GBM nephropathy ANCA positive Colon polyp, hyperplastic 2005 Hyperlipidemia Pancreatitis Surgical History Wound dehiscence, internal operation (~04/2020) History of knee surgery Family History Mother , 83 Stroke Sister Breast cancer Brother Essential hypertension Heart disease Hyperlipidemia Maternal Grandfather Stroke Paternal Grandfather Personal history of malignant neoplasm LUNG Son Depression Daughter No problems noted. Father No problems noted. 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 Pets and animals: No Sexually active: No Do you think of yourself as: straight/heterosexual Current gender identity: male What is your relationship status?: How often do you talk on the phone with friends or family?: twice per week How often do you get together with friends or relatives?: twice per week How often do you attend bahai or orthodox services?: decline to answer Do you belong to any clubs or organized social groups?: no Panel score (0-1 are the most socially isolated patients): 1 What type of physical activity do you participate in: other Duration: < 15 minutes/day Frequency: decline to answer Fiona/Spiritism: None Special fiona needs: No Seatbelt use: sometimes Drive intox or ride w/intox line driver: No Do you feel safe at home: Yes Do you feel safe in your relationship?: Yes Additional Social history: lives alone
--- NOTE | 2024-10-29 13:35 | W.PM.PROGNOT ---
Date of Service Date of service: 10/29/24 Time of Service: 13:35 Assessment and Plan Assessment and plan (1) Acute dehydration: Status: Acute Assessment and plan: Continue IV hydration Monitor kidney functions and electrolytes closely Cr 0.9 (2) Leukocytosis (leucocytosis): Status: Acute Assessment and plan: Trending downward no source of infection has been identified but suspected possible UTI Blood cultures gm + cocci (3) Urethral trauma: Status: Acute Assessment and plan: From straight cath in the emergency department has been bleeding no signs of urinary retention by bladder scan Will hold DVT prophylaxis in the setting of acute bleeding Consider holding Plavix if needed Would consider blood if needed Follow hemodynamics and H&H Urology consult placed Hgb 12.2 (4) UTI (urinary tract infection): Status: Acute Assessment and plan: Was given ceftriaxone for concern of a partially treated UTI Will continue BC gm + cocci (5) Recurrent urinary tract infection: Assessment and plan: Patient is status post renal transplant 3 years ago with recurrent UTIs by diagnosis but he states he has had only 2 UTIs. He is a poor historian. He does have chronic leukocytosis but this seems slightly worse upon this presentation. (6) S/P kidney transplant: Status: Chronic Assessment and plan: Continue immunosuppressants while hospitalized. His renal functions have normalized. (7) Immunosuppressed status: Status: Chronic Assessment and plan: Continue immunosuppressants status post renal transplant but this does put him at risk for severe infection if not treated aggressively. (8) Hyperlipidemia: Status: Chronic Assessment and plan: Continue outpatient statin therapy. Patient is status post CVA. He is on Plavix as well. (9) DM II (diabetes mellitus, type II), controlled: Status: Chronic Assessment and plan: Hold metformin and check glucometers before meals and at bedtime with sensitive sliding scale coverage. (10) Hypertension: Status: Chronic Assessment and plan: Continue outpatient medical therapy adjusting as needed. (11) Vascular dementia: Status: Chronic Assessment and plan: This may be slightly exacerbated the patient's acute illness. Continue Plavix and statin therapy. (12) GERD (gastroesophageal reflux disease): Status: Chronic Assessment and plan: Continue famotidine. (13) Acute CVA (cerebrovascular accident): Status: Chronic Assessment and plan: Patient had acute CVA in the left cerebral hemisphere May of this year by history. He is on Plavix and statin. discussed with Dr. Lopez Subjective Subjective Patient reports: no new complaints, tolerating liquids well, tolerating a regular diet, voiding w/o difficulty, bowel movement and afebrile; denies nausea or shortness of breath Interval history since last seen: Patient semi fowlers in bed, speaks slowly and quietly, states he would like to go to rehab to get stronger, patient is also considering [facility] [place]. Exam Const General: cooperative and no acute distress Orientation: alert, awake and oriented x3 HENMT Head: normal to inspection Ears: hearing grossly normal bilaterally and external ears normal Mouth: oral mucosae normal Eyes General: appearance normal, both eyes and all related structures Neck Neck: normal visual inspection Resp Effort & Inspection: normal respiratory effort and able to speak in complete sentences Cardio Rate: regular rate Skin General skin exam: no rashes or lesions noted Neuro General: patient alert, patient awake and patient oriented x3 Motor: muscle tone normal throughout Extrem General: normal to inspection and full ROM Psych Appearance: grossly normal Affect: normal affect Objective Last Vital Signs Temp 35.7 C L 10/29/24 07:05 Pulse 68 10/29/24 07:05 Resp 14 10/29/24 07:05 BP 168/86 H 10/29/24 07:05 Pulse Ox 92 10/29/24 07:05 Laboratory Results - last 24 hr 10/29/24 06:02 WBC 14.73 H RBC 4.23 L Hgb 12.2 L Hct 38.0 L MCV 90 MCH 28.8 MCHC 32.1 RDW 12.7 Plt Count 170 MPV 9.9 Sodium 140 Potassium 3.7 Chloride 108 H Carbon Dioxide 24.9 Anion Gap 7.1 BUN 19 H Creatinine 0.9 Est GFR (CKD-EPI 2020) 89.07 Glucose 144 H Calcium 9.1 Magnesium 1.5 L Total Bilirubin 0.4 AST 14 L ALT 19 Alkaline Phosphatase 82 Total Protein 5.7 L Albumin 2.4 L Time Spent with Patient Time Spent with Patient: 25-34 minutes Time was spent: preparing to see the patient(eg.review tests), ordering medications,tests, procedures, referring, communicating with other health managed care specialist, indepentently interpreting results, counseling the patient and care coordination
--- NOTE | 2024-10-29 13:54 | PTTR_ITS ---
PT Notes Visit Reasons: Dehydration, NIDDM, Leukocytosis Inpatient Physical Therapy Treatment Note [facility] Date: 10/29/24 SUBJECTIVE: Gamaliel states that he needs to get busy with PT has he is noting a significant amount of weakness. OBJECTIVE: []? VITALS: ? monitored by [facility] Therapeutic Activities ([id number]): Direct one-on-one instruction in dynamic activities to improve functional performance. ? BED MOBILITY/TRANSFERS? Supine-sit: SBA? Sit-stand: Min A of 1 in am and CGA of 1 in pm ? Stand-sit: CGA? Provided skilled cues and instruction on performance and technique throughout. GAIT? Assistive Device: FWW? Weight bearing: full Assist: min A x1 and CGA of 1 in am; CGA of 1 in pm. ? Distance:?5' in am and approx 160' in pm ? Deviation: short strides, right knee alyssa due to previous CVA? Therapeutic Exercises ([id number]): Direct one-on-one instruction in therapeutic exercises to develop strength, endurance, range of motion and flexibility. ? Exercises ?AM session: seated LAQ, hip flex, abd, QS and SLR as well as bridging x10 ea. PM session: seated LAQ and SLR x10. Sit to stand x6 with min use of his arms. Standing HR, hip flex and abd x 10 ea. ? Provided skilled instruction in proper exercise performance for proper quad engagement. ASSESSMENT:? much improvements noted in regards to confidence and strength. PLAN: will continue to progress his strength and functional mobility to tolerance. TREATMENT CODE/TIME: 25 min in am and 29 min in pm. [id number], [id number] DISCHARGE RECOMMENDATION: home with HHPT vs SNF
[2024-10-29 14:39] LABS: Tacrolimus 23.3 ng/mL (See Note)
[2024-10-29 14:45] VITALS: BP 130/58; PULSE 58; RESP 16; TEMP 36.2; O2SAT 97
--- NOTE | 2024-10-29 15:19 | CMPROGNOTE_ITS ---
Date of service: 10/29/24 Time of Service: 12:00 Care Management Progress Note Progress Note Text Progress Note Text: Gamaliel was sitting up in the bedside chair when CM met with him today. He had just finished his lunch and CM noted that he ate 100% of it. Gamaliel was very pleasant with CM. He was noted to be very soft spoken. His conversation was often not very clear, with his thoughts rambling. He stated that he loves his , but can't live with her because she has chosen her father over him, and is very controlling. Gamaliel stated that his goal would be to live in the [facility] [place], [place]. CM reached out to the CM at the [place], [place], Linnea Marie, to discuss this and any help that the [facility] may have to offer. VM was left. Gamaliel is clearly in need of increased community supports. His finger nails are dirty and he does not look like he has shaved or had a hair cut for a while. Gamaliel stated that he eats mainly frozen foods. From CM initial assessment, it seems that this is Meals on Wheels. ALESSANDRA is going to send a referral to [facility], regardless. He does not drive, but uses [facility] for his appointments. From his hospital record, it does appear that he has been following up at his PCP office appropriately. Gamaliel is interested in short term rehab. Referrals were sent to [facility] facilities, as Gamaliel is here in observation status. He stated to CM that he does not feel that he would be safe to go home the way he is feeling. Discharge Potential Discharge Needs: PCP F/U Appt Anticipated Barriers to Discharge: None Identified Patient/Family Education Needs: Review discharge instructions, discuss [facility] Transportation: [facility] Transportation: Wheel chair van Plan: Anticipate that Gamaliel will transfer to SNF vs. Home with full services. He will transport via [facility]. He will f/u with his PCP and continue to follow his plan of care. CM will reach out to the [facility] again, to try to increase his community supports. CM will continue to follow and update the plan as needed. Social Determinants of Health Screening Social Determinants of health last assessed in clinic: 10/29/24 Will the Patient Participate in the Screening?: Yes Do you worry about having a steady place to live?: yes What is your living situation today?: I have housing today, but am worried about losing it Problems where you live: pests such as bugs, ants or mice In the past 12 months, have you had to go without electric, gas, oil or water in your home?: no 1. Within the past 12 months, we worried whether our food would run out before we got money to buy more.: Sometimes true 2. Within the past 12 months, the food we bought just didn't last and we didn't have money to get more.: Sometimes true Has lack of transportation kept you from medical appointments or from doing things needed for daily living?: no Has anyone in your life made you feel unsafe or unsupported?: no How hard is it for you to pay for the very basics like food, housing, medical care, and heating? 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 Health Related Social Needs Health related social needs: inadequate housing (Z59.1), housing instability, housed, with risk of homelessness (Z59.811), food insecurity (Z59.41) and feeling lonely/isolated (Z60.8) Health related social needs details: Patient thinks of no help needed for now. 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
--- NOTE | 2024-10-29 16:28 | PHA.REVIEW2 ---
Pharmacy Admission Review Admission Clinical Review Admission Pharmacy Review: Urethral trauma (Acute) UTI (urinary tract infection) (Acute) Leukocytosis (leucocytosis) (Acute) Acute dehydration (Acute) Penicillins Allergy (Severe, Unverified 10/27/24 20:45) CARDIAC ARREST ibuprofen Adverse Reaction (Intermediate, Verified 10/27/24 20:45) its hard on my kidneys lisinopril Adverse Reaction (Intermediate, Unverified 10/27/24 20:45) cough Resuscitation Status DNR Height 6 ft Weight 83.733 kg Pharmacy Admission Review Renal Dosing Renal Dosing: BUN 19 mg/dL (7-18) H 10/29/24 06:02 Creatinine 0.9 mg/dL (0.70-1.30) 10/29/24 06:02 Medications needing adjustments: Reviewed Anticoagulation Anticoagulation: on plavix for h/o stroke Hgb 12.2 g/dL (13.5-17.5) L 10/29/24 06:02 Hct 38.0 % (40.0-50.0) L 10/29/24 06:02 Plt Count 170 10^3/uL (130-400) 10/29/24 06:02 Creatinine 0.9 mg/dL (0.70-1.30) 10/29/24 06:02 DVT Prophylaxis: Reviewed Opiate Usage Evaluate Pain Scale/Pains Meds: N/A Relevant Labs Relevant Labs: Sodium 140 mmol/L (136-145) 10/29/24 06:02 Potassium 3.7 mmol/L (3.5-5.1) 10/29/24 06:02 Chloride 108 mmol/L (98-107) H 10/29/24 06:02 Phosphorus 3.1 mg/dL (2.6-4.7) 10/28/24 05:50 Magnesium 1.5 mg/dL (1.8-2.4) L 10/29/24 06:02 Electrolytes, C-Reactive P, ESR: Reviewed DM Control DM Control: Reviewed Cardiac Review Cardiac Review: NT-Pro-B Natriuret Pep 657 pg/mL (<300) H 10/27/24 21:22 BP, HR, EF%: Reviewed QTc Review QTc: N/A IV to PO Switch IV Medications: Reviewed Home Meds Home Med List reviewed: Reviewed Relevent Home Meds Not ordered & why?: hold metformin while inpatient for now Pharmacy Antibiotic Review Comments: reviewed. On ceftriaxone empirically for UTI
[2024-10-29 19:51] VITALS: BP 133/74; PULSE 65; RESP 20; TEMP 37; O2SAT 94
[2024-10-29] MEDS: Atorvastatin 40 MG TAB PO (20:53)
[2024-10-29] MEDS: cefTRIAXone 1 GM/50 ML BAG IVPB (22:23)
[2024-10-29 23:41] VITALS: BP 170/80; PULSE 69; RESP 20; TEMP 36.6; O2SAT 96
[2024-10-30 03:17] VITALS: BP 156/80; PULSE 67; RESP 19; TEMP 36.7; O2SAT 95
[2024-10-30 06:38] LABS: Abs Immature Grans 0.11 10^3/uL (0.0-0.06); Absolute Neutrophil Count 11.03 10^3/uL (1.2-6.7); Basophils % 0.4 %; HCT 39.5 % (40.0-50.0); HGB 12.7 g/dL (13.5-17.5); Immature Grans % 0.8 %; Lymphocytes % 11.6 %; MCH 28.7 pg (27.0-33.0); MCHC 32.2 % (32.0-36.0); MCV 89 fL (80-95); MPV 9.9 fL (8.0-11.0); Monocytes % 8.9 %; Neutrophils % 78.3 %; Platelet Count 187 10^3/uL (130-400); RBC 4.42 10^6/uL (4.36-5.78); RDW 12.6 % (11.8-14.1); RDW-SD 41.3 fL; WBC 14.09 10^3/uL (4.4-10.8)
[2024-10-30 06:39] LABS: Absolute Basophil Count 0.06 10^3/uL (0.0-0.2); Absolute Lymphocyte Count 1.63 10^3/uL (1.2-3.4); Absolute Monocyte Count 1.25 10^3/uL (0.1-0.8)
--- NOTE | 2024-10-30 06:54 | UCONE_ITS ---
Date of service: 10/29/24 Time of Service: 16:20 Assessment and Plan Assessment and plan (1) Urethral trauma: Status: Acute Assessment and plan: I suspect that his urethral trauma is distal to the external sphincter. By observation is based on the shape of the clot that is present in the depends and the fact that his urine is actually quite clear. If the trauma was proximal to the external sphincter, I would expect the blood to be present in the urine as well. I do not believe any specific treatment is needed as long as he is able to void. If he is not able to void, we would need to place a urethral catheter and leave it for a week or so to allow the urethra to heal. With his current blood cultures, I am not certain that the urine is the source of any systemic infection that he has. I will attempt to get a hold of his records from [place] to see if a urine culture was actually taken at his most recent visit. History of Present Illness History of Present Illness Chief Complaint: Urethral bleeding Narrative: This is a 74-year-old gentleman who is currently hospitalized with concerns for sepsis. He has a history of a kidney transplant, so he is immunocompromise. During his recent visit with the transplant providers in [place], he was told he had a urinary tract infection. He was started on oral antibiotics, but he developed worsening confusion/mental status changes and was brought to the emergency department. He was admitted for IV antibiotics. He was catheterized to obtain a urine sample. He has had some urethral bleeding since then. He has been able to void (although usually into a diaper) into his urine has been clear. He does have a history of thrombocytopenia. He has had a stroke and is routinely on Plavix. He is able to provide some historical information, but then his conversation drifts off to less than believable information. Review of Systems Unobtainable due to mental status PFSH All Active Problems Urethral trauma (Acute) UTI (urinary tract infection) (Acute) GERD (gastroesophageal reflux disease) (Chronic) Leukocytosis (leucocytosis) (Acute) Acute dehydration (Acute) Confused but orients easily (Acute) Polycythemia (Acute) Lower urinary tract symptoms (LUTS) (Acute) Hypertension (Chronic) Acute CVA (cerebrovascular accident) (Chronic) Iliac artery aneurysm, left (Acute) Pancreatic cyst (Acute ~02/2023) noted on CT abdomen pelvis; fullness of pancreatic head. Repeat MRI due in August 2023 Vascular dementia (Chronic ~03/2023) MRI of the brain consistent with small vessel ischemia; needs further neurologic assessment. 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 BARON S/P kidney transplant (Chronic ~04/2020) at [facility], post op wound dehiscence requiring repeat surgery Glomerulonephritis due to vasculitis (Chronic) Immunosuppressed status (Chronic) Due to kidney transplant and P ANCA and MPO antibody, managed at [facility] with IVIG Marital conflict (Acute) Medical History Liver abscess due to bacteria (03/2023) Status post biopsy at [facility] via ERCP. Negative Gram stain performed while on antibiotics Hx of bacteremia (03/2023) Due to Klebsiella; treated with Levaquin and metronidazole for 4-week course History of posttraumatic stress disorder (PTSD) managed by [facility] Recurrent urinary tract infection h/o Klebsiella UTI Diverticulosis Skin lesion of face Closed fracture of patella (~1970) History of tobacco use quit in 1999 Goodpasture syndrome (03/09/16) 02/12. Renal failure. Pulmonary dysfunction. anti GBM nephropathy ANCA positive Colon polyp, hyperplastic 2005 Hyperlipidemia Pancreatitis Surgical History Wound dehiscence, internal operation (~04/2020) History of knee surgery Family History Mother , 83 Stroke Sister Breast cancer Brother Essential hypertension Heart disease Hyperlipidemia Maternal Grandfather Stroke Paternal Grandfather Personal history of malignant neoplasm LUNG Son Depression Daughter No problems noted. Father No problems noted. 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 Pets and animals: No Sexually active: No Do you think of yourself as: straight/heterosexual Current gender identity: male What is your relationship status?: How often do you talk on the phone with friends or family?: twice per week How often do you get together with friends or relatives?: twice per week How often do you attend caodaism or jain services?: decline to answer Do you belong to any clubs or organized social groups?: no Panel score (0-1 are the most socially isolated patients): 1 What type of physical activity do you participate in: other Duration: < 15 minutes/day Frequency: decline to answer Fiona/Temple: None Special fiona needs: No Seatbelt use: sometimes Drive intox or ride w/intox wagon driver salesperson: No Do you feel safe at home: Yes Do you feel safe in your relationship?: Yes Additional Social history: lives alone Exam Narrative Exam Narrative: He does not appear septic or toxic His abdomen is soft. There are no peritoneal signs. There is no tenderness overlying his transplant kidney in the pelvis. There is a long tubular clot present in the depends. The urethral meatus does not appear erythematous. The urine in his depends is clear. Results Last Vital Signs Temp 36.7 C 10/30/24 03:17 Pulse 67 10/30/24 03:17 Resp 19 10/30/24 03:17 BP 156/80 H 10/30/24 03:17 Pulse Ox 95 10/30/24 03:17 Labs 10/30/24 05:52 10/29/24 06:02 Labs: Laboratory Results - last 24 hr 10/27/24 10/29/24 10/30/24 21:22 06:02 05:52 WBC 14.09 H RBC 4.42 Hgb 12.7 L Hct 39.5 L MCV 89 MCH 28.7 MCHC 32.2 RDW 12.6 Plt Count 187 MPV 9.9 Immature Gran % 0.8 Neutrophils % 78.3 Lymphocytes % 11.6 Monocytes % 8.9 Eosinophils % 0.0 Basophils % 0.4 Nucleated RBC % 0.0 Absolute Neutrophils 11.03 H Absolute Lymphocytes 1.63 Absolute Monocytes 1.25 H Absolute Eosinophils 0.00 Absolute Basophils 0.06 Sodium 140 Potassium 3.7 Chloride 108 H Carbon Dioxide 24.9 Anion Gap 7.1 BUN 19 H Creatinine 0.9 Est GFR (CKD-EPI 2020) 89.07 Glucose 144 H Calcium 9.1 Magnesium 1.5 L Total Bilirubin 0.4 AST 14 L ALT 19 Alkaline Phosphatase 82 Total Protein 5.7 L Albumin 2.4 L Tacrolimus 23.3
[2024-10-30 07:00] LABS: Anion Gap 9.7 mmol/L (3-11); BUN 16 mg/dL (7-18); CO2 23.3 mmol/L (21.0-32.0); CREATININE 0.8 mg/dL (0.70-1.30); Calcium 9.1 mg/dL (8.5-10.1); Chloride 107 mmol/L (98-107); Estimated GFR 92.29 (mL/min/1.73m2); Glucose 147 mg/dL (74-106); Magnesium 1.4 mg/dL (1.8-2.4); Potassium 3.8 mmol/L (3.5-5.1); Sodium 140 mmol/L (136-145)
[2024-10-30 07:40] VITALS: BP 142/104; PULSE 67; RESP 17; TEMP 36.1; O2SAT 94
[2024-10-30] MEDS: predniSONE 5 MG TAB PO (08:30)
[2024-10-30] MEDS: dilTIAZem CD 120 MG CAPCR PO (08:30)
[2024-10-30] MEDS: Tacrolimus 0.5 MG CAP 1 MG PO (08:30)
[2024-10-30] MEDS: Clopidogrel 75 MG TAB PO (08:30)
[2024-10-30] MEDS: Insulin Aspart 300 UNITS/3 ML PEN SC ×2 (08:30→12:11)
[2024-10-30] MEDS: Famotidine 20 MG TAB PO (08:31)
[2024-10-30] MEDS: Carvedilol 12.5 MG TAB PO (08:31)
[2024-10-30 08:45] VITALS: BP 146/72
--- NOTE | 2024-10-30 09:03 | W.PM.DS.N ---
Date of service: 10/30/24 Time of Service: 09:03 DS: Diagnosis Discharge Diagnosis (1) Urethral trauma: Status: Acute Discharge Plan Disposition Patient Disposition: Shelter Facility(SNF) Condition: Improving Discharge Details Reason For Visit: Dehydration, NIDDM, Leukocytosis Admit Date/Time: 10/28/24 00:10 Admit Provider: Alhaji Pearson Attending Provider: Alhaji Pearson Primary Care Provider: Shannan Stevens Hospital Course Hospital Course: This is a 74-year-old male who was admitted after becoming acutely confused and weak. He was found crawling on the floor at home by his family, who called for emergency medical transport. The patient has a history of left-sided CVA in May 2024, with right-sided weakness and chronic low back pain due to degenerative disc disease. He is status post kidney transplant 3 years ago and receives ongoing care at [facility]. The patient had been diagnosed with a UTI during a renal transplant clinic visit a few days prior and had been initiated on Keflex. However, his symptoms of weakness, urinary incontinence, and confusion worsened, prompting his ED presentation. He was not febrile, but his WBC count was elevated, consistent with his chronic leukocytosis. His renal function remained stable, and he did not show signs of systemic infection. His low back pain was exacerbated, likely related to a possible UTI. His urinalysis was unremarkable, except for a traumatic catheterization with RBCs, but a urine culture and blood cultures were obtained. Due to his immunosuppressed status post-renal transplant and recurrent UTIs, he was started on IV Rocephin. His CPK was checked to rule out muscle damage as he was on the floor for an extended period. The patient's vascular dementia may have been exacerbated by his acute illness, and his confusion and wandering conversation improved slightly with IV hydration. Urine culture no growth. Blood culture gram positive cocci. I spoke with [facility] transplant center and recommendation for doxycycline 100 mg BID x 5 days given. Patient had low magnesium and has been started on a magnesium supplement. Vital signs are stable. Patient is at baseline. Patient is being discharged to [facility]. Patient is in agreement with this plan. Patient is DNR Home Meds and New Rx's Prescriptions: New magnesium chloride [Mag 64] 64 mg Tablet,Delayed Release (Dr/Ec) 64 mg PO DAILY@1000 Qty: 0 0RF doxycycline hyclate 100 mg tablet,delayed release (DR/EC) 100 mg PO BID Qty: 10 0RF Continued ergocalciferol (vitamin D2) 1,250 mcg (50,000 unit) capsule 1,250 mcg PO QWEEK Patient Comments: TAKE 1 CAPSULE BY MOUTH ONCE A WEEK mycophenolate sodium 180 mg tablet,delayed release (DR/EC) 180 mg PO DAILY Qty: 90 0RF famotidine [Pepcid] 20 mg tablet 20 mg PO DAILY metformin 500 mg tablet 500 mg PO BID clopidogrel [Plavix] 75 mg tablet 75 mg PO DAILY prednisone 5 mg tablet 5 mg PO DAILY Rx Instructions: 04/10/24 per [facility]. -hb hydrocortisone 1 % cream 1 applic topical BID PRN Rx Instructions: 04/10/24 per [place], apply small amount for facial rash, use no longer than 3 days on face. -hb carvedilol 12.5 mg tablet 12.5 mg PO BID Rx Instructions: must administer with a meal/food cephalexin 500 mg capsule 500 mg PO TID Patient Comments: TAKE ONE CAPSULE BY MOUTH THREE TIMES A DAY FOR 7 DAYS STARTED 10/25 diltiazem HCl [DILT-XR] 120 mg capsule,ext.rel 24h degradable 120 mg PO Q12H atorvastatin [Lipitor] 20 mg tablet 40 mg PO QHS Patient Comments: reported by pt from [facility] tacrolimus 0.5 mg capsule 1 mg PO DAILY Discharge Instructions Activity:: Activity as Tolerated Equipment/Supplies:: No Equipment Needed Diet:: As Tolerated Discharge Orders Discharge Orders: Discharge Order (Routine); Ordered 10/30/24 Ordered By: Gretta Meléndez DS: Summary Time Spent with Patient providing and/or coordinating discharge services: Greater than 30 minutes Status at Discharge Functional status at discharge: wheelchair bound Overall status at discharge: patient is progressing back to baseline Mental Status: mental status grossly normal Speech and Movement: speech and movement normal Mood: congruent mood Affect: normal affect Quality:SDOH Health Related Social Needs: Health related social needs inadequate housing (Z59.1), housing instability, housed, with risk of homelessness (Z59.811), food insecurity (Z59.41), feeling lonely/isolated (Z60.8) Health related social needs details Patient thinks of no help needed for now. Health related social needs details: Patient thinks of no help needed for now. Exam Const General: cooperative and no acute distress Orientation: alert, awake and oriented x3 HENMT Head: normal to inspection Ears: hearing grossly normal bilaterally and external ears normal Mouth: oral mucosae normal Eyes General: appearance normal, both eyes and all related structures Neck Neck: normal visual inspection Resp Effort & Inspection: normal respiratory effort and able to speak in complete sentences Cardio Rate: regular rate Skin General skin exam: no rashes or lesions noted Neuro General: patient alert, patient awake and patient oriented x3 Motor: muscle tone normal throughout Extrem General: normal to inspection and full ROM Psych Appearance: grossly normal Mental Status: mental status grossly normal Speech and Movement: speech and movement normal Mood: congruent mood Affect: normal affect DS: Data Vitals/I&O Vitals and I&O: Vital Signs Temperature 36.1 C L 10/30/24 07:40 Temperature Source Temporal Artery Scan 10/30/24 07:40 Pulse 67 10/30/24 07:40 Pulse Rhythm Regular 10/28/24 01:21 Respiratory Rate 17 10/30/24 07:40 Respiratory Effort Normal, Non-Labored 10/28/24 01:21 Respiratory Depth Normal 10/28/24 01:21 Blood Pressure 146/72 H 10/30/24 08:45 Blood Pressure Mean 96 10/30/24 08:45 Blood Pressure Position Sitting 10/27/24 20:47 Pulse Oximetry 94 10/30/24 07:40 Oxygen Delivery Method Room Air 10/30/24 07:40 Oxygen Flow Rate 0 10/30/24 07:40 Pain Level 0 10/30/24 07:40 Comment bed alarms very sensitive. notified tha in person of temp and bp. Discussed wait for patient to wake up to check bandage. 10/28/24 15:47 Intake & Output 10/29/24 10/29/24 10/30/24 11:59 23:59 11:59 Intake Total 2060 / 3350 1290 / 3350 Output Total 1200 / 2785 1585 / 2785 1240 / 1240 Balance 860 / 565 -295 / 565 -1230 / -1230 Weight 83.733 kg 84.323 kg Intake: IV 2060 / 3110 1050 / 3110 10 10 Oral 240 / 240 Output: Urine 1200 / 2785 1585 / 2785 1240 / 1240 Other: Urine Color Yellow Yellow Pale Yellow Urine Appearance Clear Clear Clear Urine Odor Strong Normal Normal Comment Patient voided in brief, brief was changed. Patient voided into urinal with one person assist. incontinent as well Patient voids ind. in urinal. Data Completed and Pending Labs on day of discharge: Labs from last 24 hours 10/30/24 10/27/24 05:52 21:22 WBC 14.09 H RBC 4.42 Hgb 12.7 L Hct 39.5 L MCV 89 MCH 28.7 MCHC 32.2 RDW 12.6 Plt Count 187 MPV 9.9 Immature Gran % 0.8 Neutrophils % 78.3 Lymphocytes % 11.6 Monocytes % 8.9 Eosinophils % 0.0 Basophils % 0.4 Nucleated RBC % 0.0 Absolute Neutrophils 11.03 H Absolute Lymphocytes 1.63 Absolute Monocytes 1.25 H Absolute Eosinophils 0.00 Absolute Basophils 0.06 Sodium 140 Potassium 3.8 Chloride 107 Carbon Dioxide 23.3 Anion Gap 9.7 BUN 16 Creatinine 0.8 Est GFR (CKD-EPI 2020) 92.29 Glucose 147 H Calcium 9.1 Magnesium 1.4 L Tacrolimus 23.3 Preliminary micro results at discharge 10/27/24 22:00 Blood Blood Culture - Preliminary Gram positive cocci 10/27/24 21:22 Blood Blood Culture - Preliminary Gram positive cocci 10/27/24 22:30 Urine - Cath Straight Urine Culture - Preliminary PFSH All Active Problems Urethral trauma (Acute) UTI (urinary tract infection) (Acute) GERD (gastroesophageal reflux disease) (Chronic) Leukocytosis (leucocytosis) (Acute) Acute dehydration (Acute) Confused but orients easily (Acute) Polycythemia (Acute) Lower urinary tract symptoms (LUTS) (Acute) Hypertension (Chronic) Acute CVA (cerebrovascular accident) (Chronic) Iliac artery aneurysm, left (Acute) Pancreatic cyst (Acute ~02/2023) noted on CT abdomen pelvis; fullness of pancreatic head. Repeat MRI due in August 2023 Vascular dementia (Chronic ~03/2023) MRI of the brain consistent with small vessel ischemia; needs further neurologic assessment. 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 BARON S/P kidney transplant (Chronic ~04/2020) at 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 Negative Gram stain performed while on antibiotics Hx of bacteremia (03/2023) Due to Klebsiella; treated with Levaquin and metronidazole for 4-week course History of posttraumatic stress disorder (PTSD) managed by [facility] Recurrent urinary tract infection h/o Klebsiella UTI Diverticulosis Skin lesion of face Closed fracture of patella (~1970) History of tobacco use quit in 1999 Goodpasture syndrome (03/09/16) 02/12. Renal failure. Pulmonary dysfunction. anti GBM nephropathy ANCA positive Colon polyp, hyperplastic 2005 Hyperlipidemia Pancreatitis Surgical History Wound dehiscence, internal operation (~04/2020) History of knee surgery Family History Mother , 83 Stroke Sister Breast cancer Brother Essential hypertension Heart disease Hyperlipidemia Maternal Grandfather Stroke Paternal Grandfather Personal history of malignant neoplasm LUNG Son Depression Daughter No problems noted. Father No problems noted. 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 Pets and animals: No Sexually active: No Do you think of yourself as: straight/heterosexual Current gender identity: male What is your relationship status?: How often do you talk on the phone with friends or family?: twice per week How often do you get together with friends or relatives?: twice per week How often do you attend restorationism or islam services?: decline to answer Do you belong to any clubs or organized social groups?: no Panel score (0-1 are the most socially isolated patients): 1 What type of physical activity do you participate in: other Duration: < 15 minutes/day Frequency: decline to answer Fiona/Baptism: None Special fiona needs: No Seatbelt use: sometimes Drive intox or ride w/intox bottom hoop driver: No Do you feel safe at home: Yes Do you feel safe in your relationship?: Yes Additional Social history: lives alone Time Spent with Patient Time Spent with Patient: 45-69 minutes Time was spent: preparing to see the patient(eg.review tests), ordering medications,tests, procedures, referring, communicating with other health child care provider, indepentently interpreting results, counseling the patient and care coordination
--- NOTE | 2024-10-30 10:07 | PDOC.CMDIS ---
Date of service: 10/30/24 Time of Service: 10:07 LACE Index Scoring Tool Questions: Length of Stay (in days): 2 Was the patient admitted via the E.D.?: Yes Comorbidities: Cerebrovascular Disease, Diabetes w/o Complication and Liver or Renal Disease E.D. Visits: 2 Answers: Total Score: 12 Risk of Readmission: High Risk Care Management Discharge Plan Reason for Hospitalization: dehydration and altered mental status Discharge Plan: Gamaliel's called this morning and was updated on the plan. Gamaliel is being transferred to [facility] for STR today. He will transport via [facility] private vehicle. He will f/u with the facility provider and his plan of care. Patient/Family Education Needs: Review of discharge instructions, activity, limitations, and discuss ask me 3. Services Needed at Discharge: [facility] SDOH Health Related Social Needs: Health related social needs inadequate housing (Z59.1), housing instability, housed, with risk of homelessness (Z59.811), food insecurity (Z59.41), feeling lonely/isolated (Z60.8) Health related social needs details Patient thinks of no help needed for now. Health related social needs details: Patient thinks of no help needed for now.
[2024-10-30] MEDS: Magnesium Chloride 64 MG TABCR PO (11:08)
--- NOTE | 2024-10-30 11:31 | NUR.NOTE ---
Nursing Note: Tyrone called for update- topics covered included possible infection, abx, d/c plans
[2024-10-30 11:41] VITALS: BP 138/57; PULSE 68; RESP 17; TEMP 36.6; O2SAT 96
--- NOTE | 2024-10-30 14:36 | NUR.NOTE ---
Nursing Note: Report called to sara gallardo rn at [place] [facility]. Topics included fingersticks, orientation, sundowning, abx, blood cultures, mobility, allergies.
== END 2024-10-30 14:11 | disposition skilled nursing facility (03) ==
LOC: ER 10-28 00:21 → MS 10-28 01:06
PROVIDERS: Admitting Provider Family Medicine; Emergency Provider Nurse Practitioner Family; PCP Family Medicine; Responsible Provider Nurse Practitioner Family; Visit Provider Family Medicine
DX: E86.0 Dehydration; N39.0 Urinary tract infection, site not specified; Z94.0 Kidney transplant status; D84.821 Immunodeficiency due to drugs; I69.351 Hemiplegia and hemiparesis following cerebral infarction affecting right dominant side; K21.9 Gastro-esophageal reflux disease without esophagitis; I10 Essential (primary) hypertension; F01.A3 Vascular dementia, mild, with mood disturbance; Z79.02 Long term (current) use of antithrombotics/antiplatelets; D69.6 Thrombocytopenia, unspecified; D75.1 Secondary polycythemia; E78.5 Hyperlipidemia, unspecified; K75.81 Nonalcoholic steatohepatitis (NASH); F43.10 Post-traumatic stress disorder, unspecified; Z87.891 Personal history of nicotine dependence; M31.0 Hypersensitivity angiitis; T83.83XA Hemorrhage due to genitourinary prosthetic devices, implants and grafts, initial encounter; Z66 Do not resuscitate; Z79.899 Other long term (current) drug therapy; Z79.621 Long term (current) use of calcineurin inhibitor; G89.29 Other chronic pain; M51.369 Other intervertebral disc degeneration, lumbar region without mention of lumbar back pain or lower extremity pain; E83.42 Hypomagnesemia; E11.9 Type 2 diabetes mellitus without complications; Z79.84 Long term (current) use of oral hypoglycemic drugs
CPT/HCPCS: 00123; 36415; 36416; 51798; 71250; 80048; 80053; 82550; 82962; 85027; 87040; 87077; 87637; 96361; 96365; 96366; 96367; 96372; 97110; 97162; 97530; 99285; J1650; 71045; 74176; 80197; 81003; 81015; 83605; 83735; 83880; 84100; 84443; 85025; 87086; 87186; 93306; 99223; 99231; 99232; 99239; G0378; J0696; J1815; J3475; J3490; J7512

== ENCOUNTER → 2024-10-29 08:48 | Outpatient (BNVA) | payer MEDICARE, SELFPAY | PROVIDERS: PCP Family Medicine; Referring Provider Family Medicine; Visit Provider Urology ==